=== PATIENT | male | born 1985 | race Caucasian/White ===

== ENCOUNTER 2019-07-23 23:48 | Observation (INO) ==
[2019-07-24] MEDS ORDERED: HYDROmorphone INJ 1 MG/ML SYRINGE IV STA (00:13)
[2019-07-24] MEDS ORDERED: ONDANSETRON INJ 2 MG/ML 2 ML VIAL IV STA (00:13)
[2019-07-24] MEDS ORDERED: SODIUM CHLORIDE 0.9% 1000ML 1,000 ML IV ONE ×2 (00:13→00:19)
[2019-07-24 01:16] LABS: INR 1.1 (0.9-1.1); Partial Thromboplastin Ratio 0.9; Partial Thromboplastin Time 25.1 Seconds (21.0-31.0); Prothrombin Time 10.9 Seconds (9.0-12.0)
[2019-07-24 01:17] LABS: iSTAT Creatinine 1.3 mg/dl (0.6-1.3); iSTAT Hemoglobin 17.7 g/dl (14.0-18.0); iSTAT Ionized Calcium 1.22 mmol/l (1.12-1.32); iSTAT Potassium 3.7 mEq/L (3.3-5.0)
[2019-07-24 01:37] LABS: Albumin Globulin Ratio 0.9 (0.9-2); Albumin Level 3.6 gm/dl (3.4-5.0); BUN Creatinine Ratio 15.4 (10-20); Bilirubin,Total 0.4 mg/dl (0.2-1); C Reactive Protein 4.24 mg/dl (0-0.29); Calcium 9.5 mg/dl (8.5-10.1); Creatinine Clr Calc Pharmacy 106.2 ml/min; Est GFR (African American) 74.6; Est GFR (Non-African American) 64.3; Globulin 4.1 gm/dl (2.5-4.0); Magnesium 1.7 mg/dl (1.8-2.4); Potassium 3.7 mmol/L (3.5-5.1); Thyroid Stimulating Hormone 23.9 uIu/ml (0.300-4.500); Total Protein 7.7 gm/dl (6.4-8.2); Troponin I 0.02 ng/ml (0-0.045)
[2019-07-24 01:40] LABS: Hematocrit (blood only) 52.3 % (42-52); Mean Corpuscular Hemoglobin 29.5 pg (25-34); Mean Corpuscular Hgb Conc 36.3 g/dL (32-36); Mean Corpuscular Volume 81.3 fL (80-100); Mean Platelet Volume 9.5 fL (7.4-10.4); Nucleated RBC # (auto) 0.05 K/uL (0-0); Nucleated RBC % (auto) 0.8 %; Platelet Count 74 K/uL (130-400); RDW Coefficient of Variation 13.4 % (11.5-14.5); RDW Standard Deviation 39.8 fL (36.4-46.3); Red Blood Count 6.43 M/uL (4.7-6.1); White Blood Count 6.46 K/uL (4.8-10.8)
[2019-07-24 02:00] LABS: Platelet Estimate Decreased (Normal); RBC Morphology Unremarkable; T4 Free Thyroxine 1.18 ng/dl (0.8-1.6)
[2019-07-24 02:05] LABS: ALC (manual) 1.98 K/uL (1.2-3.4); ANC (manual) 4.02 K/uL (1.4-6.5); Basophils # (manual) 0.06 K/uL (0-0.2); Basophils % (manual) 0.9 %; Blast # (manual) 0.12 K/uL (0-0); Blast Cells % (manual) 1.8 %; Eosinophils # (manual) 0.12 K/uL (0-0.5); Eosinophils % (manual) 1.8 %; Lymphocytes # (manual) 1.98 K/uL (1.2-3.4); Lymphocytes % (manual) 30.6 %; Monocytes # (manual) 0.17 K/uL (0.11-0.59); Monocytes % (manual) 2.7 %; Neutrophils # (manual) 4.02 K/uL (1.4-6.5); Neutrophils % (manual) 62.2 %
[2019-07-24] MEDS ORDERED: OPTIRAY 320 125ml IV PRN (03:10)
[2019-07-24] MEDS ORDERED: HYDROmorphone INJ 0.5 MG/0.5 ML SYR IV STA (03:21)
[2019-07-24] MEDS ORDERED: fentaNYL citrate 100 MCG/2 ML VIAL IV PRN (04:06)
--- NOTE | 2019-07-24 04:24 | Emergency Department Note ---
ED Visit Note Physician Evaluation Note: I have personally evaluated and examined this patient. I agree with assessment and plan of Letitia Geiger PA-C. Patient diaphoretic and very uncomfortable appearing complaining of low back pain and vague diffuse other pains. Notes weakness in legs though able to move them. Extensive work-up completed and with continued pain, as well as abnormal acute thrombocytopenia and CRP elevations will have hospitalist evaluate further. Willis Mendoza MD
[2019-07-24 04:25] LABS: Appearance Urine Clear (Clear); Bilirubin Urine Negative (Negative); Blood Urine Negative (Negative); Color Urine Dark Yellow; Glucose Urine UA Negative (Negative); Ketones Urine Trace (Negative); Leukocyte Esterase Urine Negative (Negative); Nitrite Urine Negative (Negative); Protein Urine 1+ (Negative); RBC Urine Automated 0-4 /hpf (0-4); Specific Gravity Urine > 1.045 (1.000-1.030); Urobilinogen Urine Negative (Negative); pH Urine 5.5 (4.5-7.5)
[2019-07-24] MEDS ORDERED: LORazepam 1 MG TAB SL STA (04:32)
[2019-07-24 04:46] LABS: Calcium Oxalate Crystals Urine Present (None Prsent)
[2019-07-24 04:47] LABS: Mucus Urine Present (None Prsent)
[2019-07-24 04:51] LABS: Bacteria Urine Automated 1+ (Negative)
[2019-07-24 05:05] LABS: Lyme Ab IgG w/WB Rflx Negative (Negative); Lyme Ab IgM w/WB Rflx Negative (Negative)
--- NOTE | 2019-07-24 05:06 | Emergency Department Note ---
History of Present Illness General Chief Complaint: Pain (Generalized) Stated Complaint: PAIN, TROUBLE BREATHING Source: patient Mode of arrival: ambulatory Limitations: no limitations History of Present Illness Provider Complaint: back pain and other (dyspnea, chest pain, weakness) Onset (ago): week(s) 1 Duration: constant and progressively worsening Location: lumbar spine, right lower back and left lower back Quality: + sharp and + aching Radiation: left leg and right leg Severity: severe Current Pain Intensity: 9 Relieved By: + supine Exacerbated By: + movement, + walking, + deep breaths, + coughing/sneezing and + lifting Context: + unknown Associated symptoms: + weakness, + fatigue, + fever, + chills, + parasthesias and + myalgias Treatments prior to arrival: NSAIDS and acetaminophen This 33-year-old male patient significant past medical history of testicular cancer, neuropathy, PE, and DVT, presents emergency department today, ambulatory, accompanied by his . The patient states for the past 1 week, he has been experiencing significantly worsening back pain. The pain is now associated with chest pain and dyspnea. He states the chest pain feels "like someone sitting on my chest". The patient states the pain in his back is stabbing "like someone is stabbing a knife into my back". He states he has been off work all week due to the pain. He was initially seen by urgent care, followed by [facility] emergency department 3 days ago where he had a chest CT and laboratory evaluation performed. He states the chest pain and dyspnea have been progressively worsening over the past 3 days and earlier today he developed weakness, shaking, vomiting, sweats, chills, and worsening dyspnea with bending. The patient states laying flat hurts and the pain radiates into the back and his legs. The patient has been taking 600 mg of ibuprofen every 6-8 hours without relief of his pain. He states he is able to ambulate, but is extremely painful in his entire legs. The patient states earlier today he believes he had a fever of 102.3. He denies any history of drug use. He denies any loss of control of his bowel or bladder function. He denies weakness or numbness of the lower extremities. He denies any recent immunizations. He denies saddle anesthesia. Home Medications Home Medications Medication Instructions Recorded Confirmed Type No Known Home Medications 07/24/19 07/24/19 History Allergies Allergy/AdvReac Type Severity Reaction Status Date / Time No Known Allergies Allergy Unverified 07/24/19 00:59 Past Med/Surg History Medical History DVT (deep venous thrombosis) Neuropathy Pulmonary embolism 2011 Testicular cancer Surgical History Bone marrow transplant status 2013 Social History Feels Safe at Home: Yes Smoking Status: Never smoker Review of Systems A total of 10 systems reviewed and were otherwise negative Physical Exam Vital Signs Vital Signs - 24 hr 07/23/19 23:50 07/24/19 00:29 07/24/19 01:30 Temperature 36.7 C Temperature Source Oral Sepsis Recent Fever Within 48 Hours No Sepsis Action Taken by Nursing No Action Required Pulse Rate 103 H 86 Pulse Rate [Apical] 90 Pulse Rate from SpO2 Sensor 83 Respiratory Rate 18 16 23 Respiratory Effort / Characteristics Non-Labored Respiratory Depth Normal Blood Pressure 118/84 136/90 Blood Pressure [Right Arm] 116/80 Blood Pressure Mean 95 105 Blood Pressure Mean [Right Arm] 92 Pulse Oximetry 95 95 95 Oxygen Delivery Method Room Air Room Air Room Air 07/24/19 01:59 07/24/19 02:30 07/24/19 03:30 Temperature Temperature Source Sepsis Recent Fever Within 48 Hours Sepsis Action Taken by Nursing Pulse Rate 85 85 Pulse Rate [Apical] 99 H Pulse Rate from SpO2 Sensor 85 86 Respiratory Rate 18 16 20 Respiratory Effort / Characteristics Respiratory Depth Normal Blood Pressure 128/89 103/74 Blood Pressure [Right Arm] 99/44 L Blood Pressure Mean 102 83 Blood Pressure Mean [Right Arm] 62 Pulse Oximetry 95 94 100 Oxygen Delivery Method Room Air Room Air Room Air 07/24/19 04:28 Temperature Temperature Source Sepsis Recent Fever Within 48 Hours Sepsis Action Taken by Nursing Pulse Rate Pulse Rate [Apical] Pulse Rate from SpO2 Sensor Respiratory Rate 16 Respiratory Effort / Characteristics Respiratory Depth Normal Blood Pressure Blood Pressure [Right Arm] 111/69 Blood Pressure Mean Blood Pressure Mean [Right Arm] 83 Pulse Oximetry 98 Oxygen Delivery Method Room Air VITALS: Vitals are noted on the nurse's note and reviewed by myself. Vital signs stable. GENERAL: This is a 33-year-old obese white male, uncomfortable in appearance, di aphoretic, well-developed well-nourished. SKIN: The skin was without rashes, erythema, edema, or bruising. There is no tenting of the skin. Capillary refill less than 2 seconds. HEAD: Normocephalic atraumatic. EARS: External auditory canals clear, tympanic membranes pearly dunn without erythema or effusion bilaterally. EYES: Pupils equal round and reactive to light and accommodation. Conjunctivae without injection, sclerae without icterus. NOSE: Patent, turbinates without inflammation or discharge. No sinus tenderness. MOUTH: Mucous membranes moist. Tonsils are not enlarged. Pharynx without erythema or exudate. Uvula midline. Airway patent. Tongue does not deviate. NECK: Supple without nuchal rigidity. No lymphadenopathy. No thyromegaly. Cervical spine is nontender. No JVD. HEART: Regular rate and rhythm without murmurs gallops or rubs. LUNGS: Clear to auscultation bilaterally without wheezes, rales or rhonchi. No dullness to percussion. No retractions or accessory muscle use. ABDOMEN: Positive bowel sounds x 4. Normal tympanic percussion. Soft, nontender, without masses or organomegaly. Sheldon sign negative. No guarding or rebound tenderness. MUSCULOSKELETAL: No muscle atrophy, erythema, or edema noted. Full range of motion without joint tenderness in all extremities. Lumbar spine and paraspinous muscle tenderness to palpation. Positive straight leg raise test bilaterally. Shuffling gait. Strength 5/5 throughout. NEURO: Patient was alert and oriented to person place and time. Normal sensation to light and sharp touch. Deep tendon reflexes 2+ throughout. No focal neurological deficits. Course The patient was seen and evaluated as above. IV access obtained, labs drawn. Patient medicated with 2 L of IV fluids, Zofran, Dilaudid. I discussed the case with my attending physician. CT imaging performed and reviewed by myself and radiologist as above. Patient requesting more pain medication. He was given 0.5 mg IV Dilaudid. This did not help. Labs reviewed by myself. I discussed the findings with the patient at bedside. I did recommend admission for the intractable back pain, thrombocytopenia. Did recommend MRI imaging as well. The patient was agreeable. I discussed the case with the [facility] hospitalist, Dr. Ivory. He did agree to see and evaluate the patient. MRI performed. Please see hospitalist dictation regarding ongoing management and care of this patient. Administered Medications Ioversol (Optiray 320 125ml) 125 ml IV ONCE PRN PRN Reason: Interaction Checking Stop: 07/28/19 03:09 Last Admin: 07/24/19 03:10 Dose: 115 ml Documented by: [id number] Discontinued Medications Hydromorphone HCl (Dilaudid) 1 mg IV NOW STA Stop: 07/24/19 00:14 Last Admin: 07/24/19 01:07 Dose: 1 mg Documented by: [id number] Hydromorphone HCl (Dilaudid) 0.5 mg IV NOW STA Stop: 07/24/19 03:22 Last Admin: 07/24/19 03:25 Dose: 0.5 mg Documented by: [id number] Sodium Chloride (Nss 1000ml) 1,000 mls @ 999 mls/hr IV .Q1H1M ONE Stop: 07/24/19 01:13 Last Infusion: 07/24/19 03:25 Dose: 0 mls/hr Documented by: [id number] Admin: 07/24/19 01:04 Dose: 999 mls/hr Documented by: [id number] Sodium Chloride (Nss 1000ml) 1,000 mls @ 999 mls/hr IV .Q1H1M ONE Stop: 07/24/19 01:19 Last Infusion: 07/24/19 04:15 Dose: 0 mls/hr Documented by: [id number] Admin: 07/24/19 03:25 Dose: 999 mls/hr Documented by: [id number] Lorazepam (Ativan) 1 mg SL NOW STA Stop: 07/24/19 04:33 Last Admin: 07/24/19 04:39 Dose: 1 mg Documented by: [id number] Ondansetron HCl (Zofran) 4 mg IV NOW STA Stop: 07/24/19 00:14 Last Admin: 07/24/19 01:07 Dose: 4 mg Documented by: [id number] Medical Decision Making Differential Diagnosis lumbar radiculopathy, sciatica, strain of lumbar region, renal colic, pyeloneph ritis, thoracic back pain, AAA, discitis, muscular strain, fracture, aortic disease, metastatic disease, infection, renal colic, gastrointestinal, lumbago, cauda equina and cord compression In addition to the above, etiologies such as cardiac ischemia, aortic dissection, pulmonary embolism, pneumonia, pneumothorax, musculoskeletal, infections, gastrointestinal, as well as others were entertained. Medical Records Attestation: I reviewed the patient's medical records. Recent medical records from [facility] including urgent care visit, ED visit, and previous primary care visit obtained through case management. These were reviewed. Laboratory Data Attestation: I reviewed the patient's lab results. No leukocytosis. Hemoglobin elevated at 19, hematocrit 52. Thrombocytopenia with platelet count of 74,000. This has decreased from 113,000 3 days ago. Coags normal. Procalcitonin 0.21. Creatinine elevated 1.43. Lactate 1.9. Troponin negative. CRP and ESR elevated. TSH elevated at 23.9 with a free T4 of 1.18. Lyme disease testing negative. Influenza testing negative. Urinalysis without evidence of acute infection. Result diagrams: 07/24/19 00:13 07/24/19 00:13 Lab Results 07/24/19 07/24/19 07/24/19 Range/Units 00:13 00:13 00:13 WBC 6.46 (4.8-10.8) K/uL RBC 6.43 H (4.7-6.1) M/uL Hgb 19.0 H (14.0-18.0) g/dL POC Hgb (14.0-18.0) g/dl Hct 52.3 H (42-52) % POC Hct (42-52) % MCV 81.3 (80-100) fL MCH 29.5 (25-34) pg MCHC 36.3 H (32-36) g/dL RDW Std Deviation 39.8 (36.4-46.3) fL RDW Coeff of Tatyana 13.4 (11.5-14.5) % Plt Count 74 L (130-400) K/uL MPV 9.5 (7.4-10.4) fL Absolute Nucleated RBC 0.05 H (0-0) K/uL Nucleated RBC % (auto) 0.8 % Neutrophils % (Manual) 62.2 % Lymphocytes % (Manual) 30.6 % Monocytes % (Manual) 2.7 % Eosinophils % (Manual) 1.8 % Basophils % (Manual) 0.9 % Blast Cells % (Manual) 1.8 % Neutrophils # (Manual) 4.02 (1.4-6.5) K/uL Total Absolute Neuts 4.02 (1.4-6.5) K/uL Lymphocytes # (Manual) 1.98 (1.2-3.4) K/uL Total Abs Lymphocytes 1.98 (1.2-3.4) K/uL Monocytes # (Manual) 0.17 (0.11-0.59) K/uL Eosinophils # (Manual) 0.12 (0-0.5) K/uL Basophils # (Manual) 0.06 (0-0.2) K/uL Blast Cells # (Man) 0.12 H (0-0) K/uL Platelet Estimate Decreased L (Normal) RBC Morphology Unremarkable PT 10.9 (9.0-12.0) Seconds INR 1.1 (0.9-1.1) APTT 25.1 (21.0-31.0) Seconds PTT Ratio 0.9 POC Sodium (135-144) mEq/L Sodium (136-145) mmol/L POC Potassium (3.3-5.0) mEq/L Potassium (3.5-5.1) mmol/L POC Chloride (101-112) mEq/L Chloride (98-107) mmol/L Carbon Dioxide (21-32) mmol/L POC Total CO2 (24-31) mEq/l Anion Gap (3-11) POC Anion Gap (16-25) mmol/L POC BUN (7-18) mg/dl BUN (7-18) mg/dl Creatinine (0.6-1.4) mg/dl POC Creatinine (0.6-1.3) mg/dl Est Cr Clr Drug Dosing ml/min Est GFR ( Amer) Est GFR (Non-Af Amer) BUN/Creatinine Ratio (10-20) Glucose (70-99) mg/dl POC Glucose (other) (70-99) mg/dl Lactate (0.4-2.0) mmol/L Calcium (8.5-10.1) mg/dl POC Ioniz Calcium Felix (1.12-1.32) mmol/l Magnesium (1.8-2.4) mg/dl Total Bilirubin (0.2-1) mg/dl AST (15-37) U/L ALT (12-78) U/L Alkaline Phosphatase (45-117) U/L Troponin I (0-0.045) ng/ml C-Reactive Protein (0-0.29) mg/dl Total Protein (6.4-8.2) gm/dl Albumin (3.4-5.0) gm/dl Globulin (2.5-4.0) gm/dl Albumin/Globulin Ratio (0.9-2) Lipase (73-393) U/L Procalcitonin 0.21 (0-0.5) ng/ml TSH (0.300-4.500) uIu/ml Free T4 (0.8-1.6) ng/dl Specimen Hemolysis Urine Color Urine Appearance (Clear) Urine pH (4.5-7.5) Ur Specific [place] (1.000-1.030) Urine Protein (Negative) Urine Glucose (UA) (Negative) Urine Ketones (Negative) Urine Blood (Negative) Urine Nitrite (Negative) Urine Bilirubin (Negative) Urine Urobilinogen (Negative) Ur Leukocyte Esterase (Negative) Urine WBC (Auto) (0-5) /hpf Urine RBC (Auto) (0-4) /hpf U Hyaline Cast (Auto) (0-5) /lpf U Epithel Cells (Auto) (0-5) /lpf Urine Bacteria (Auto) (Negative) Calcium Oxalate Crystal (None Prsent) Granular Casts (0) /lpf Urine Mucus (None Prsent) Lyme Disease IgG Ab (Negative) Lyme Disease IgM Ab (Negative) Influenza Type A Ag (Neg) Influenza Type B Ag (Neg) 07/24/19 07/24/19 07/24/19 Range/Units 00:13 00:13 00:13 WBC (4.8-10.8) K/uL RBC (4.7-6.1) M/uL Hgb (14.0-18.0) g/dL POC Hgb (14.0-18.0) g/dl Hct (42-52) % POC Hct (42-52) % MCV (80-100) fL MCH (25-34) pg MCHC (32-36) g/dL RDW Std Deviation (36.4-46.3) fL RDW Coeff of Tatyana (11.5-14.5) % Plt Count (130-400) K/uL MPV (7.4-10.4) fL Absolute Nucleated RBC (0-0) K/uL Nucleated RBC % (auto) % Neutrophils % (Manual) % Lymphocytes % (Manual) % Monocytes % (Manual) % Eosinophils % (Manual) % Basophils % (Manual) % Blast Cells % (Manual) % Neutrophils # (Manual) (1.4-6.5) K/uL Total Absolute Neuts (1.4-6.5) K/uL Lymphocytes # (Manual) (1.2-3.4) K/uL Total Abs Lymphocytes (1.2-3.4) K/uL Monocytes # (Manual) (0.11-0.59) K/uL Eosinophils # (Manual) (0-0.5) K/uL Basophils # (Manual) (0-0.2) K/uL Blast Cells # (Man) (0-0) K/uL Platelet Estimate (Normal) RBC Morphology PT (9.0-12.0) Seconds INR (0.9-1.1) APTT (21.0-31.0) Seconds PTT Ratio POC Sodium (135-144) mEq/L Sodium 135 L (136-145) mmol/L POC Potassium (3.3-5.0) mEq/L Potassium 3.7 (3.5-5.1) mmol/L POC Chloride (101-112) mEq/L Chloride 103 (98-107) mmol/L Carbon Dioxide 21 (21-32) mmol/L POC Total CO2 (24-31) mEq/l Anion Gap 11.0 (3-11) POC Anion Gap (16-25) mmol/L POC BUN (7-18) mg/dl BUN 22 H (7-18) mg/dl Creatinine 1.43 H (0.6-1.4) mg/dl POC Creatinine (0.6-1.3) mg/dl Est Cr Clr Drug Dosing 106.2 ml/min Est GFR ( Amer) 74.6 Est GFR (Non-Af Amer) 64.3 BUN/Creatinine Ratio 15.4 (10-20) Glucose 132 H (70-99) mg/dl POC Glucose (other) (70-99) mg/dl Lactate 1.9 (0.4-2.0) mmol/L Calcium 9.5 (8.5-10.1) mg/dl POC Ioniz Calcium Felix (1.12-1.32) mmol/l Magnesium 1.7 L (1.8-2.4) mg/dl Total Bilirubin 0.4 (0.2-1) mg/dl AST 43 H (15-37) U/L ALT 42 (12-78) U/L Alkaline Phosphatase 99 (45-117) U/L Troponin I 0.020 (0-0.045) ng/ml C-Reactive Protein 4.24 H (0-0.29) mg/dl Total Protein 7.7 (6.4-8.2) gm/dl Albumin 3.6 (3.4-5.0) gm/dl Globulin 4.1 H (2.5-4.0) gm/dl Albumin/Globulin Ratio 0.9 (0.9-2) Lipase 218 (73-393) U/L Procalcitonin (0-0.5) ng/ml TSH 23.900 H (0.300-4.500) uIu/ml Free T4 1.18 (0.8-1.6) ng/dl Specimen Hemolysis Urine Color Urine Appearance (Clear) Urine pH (4.5-7.5) Ur Specific [place] (1.000-1.030) Urine Protein (Negative) Urine Glucose (UA) (Negative) Urine Ketones (Negative) Urine Blood (Negative) Urine Nitrite (Negative) Urine Bilirubin (Negative) Urine Urobilinogen (Negative) Ur Leukocyte Esterase (Negative) Urine WBC (Auto) (0-5) /hpf Urine RBC (Auto) (0-4) /hpf U Hyaline Cast (Auto) (0-5) /lpf U Epithel Cells (Auto) (0-5) /lpf Urine Bacteria (Auto) (Negative) Calcium Oxalate Crystal (None Prsent) Granular Casts (0) /lpf Urine Mucus (None Prsent) Lyme Disease IgG Ab Negative (Negative) Lyme Disease IgM Ab Negative (Negative) Influenza Type A Ag (Neg) Influenza Type B Ag (Neg) 07/24/19 07/24/19 07/24/19 Range/Units 00:31 01:04 04:10 WBC (4.8-10.8) K/uL RBC (4.7-6.1) M/uL Hgb (14.0-18.0) g/dL POC Hgb 17.7 (14.0-18.0) g/dl Hct (42-52) % POC Hct 52 (42-52) % MCV (80-100) fL MCH (25-34) pg MCHC (32-36) g/dL RDW Std Deviation (36.4-46.3) fL RDW Coeff of Tatyana (11.5-14.5) % Plt Count (130-400) K/uL MPV (7.4-10.4) fL Absolute Nucleated RBC (0-0) K/uL Nucleated RBC % (auto) % Neutrophils % (Manual) % Lymphocytes % (Manual) % Monocytes % (Manual) % Eosinophils % (Manual) % Basophils % (Manual) % Blast Cells % (Manual) % Neutrophils # (Manual) (1.4-6.5) K/uL Total Absolute Neuts (1.4-6.5) K/uL Lymphocytes # (Manual) (1.2-3.4) K/uL Total Abs Lymphocytes (1.2-3.4) K/uL Monocytes # (Manual) (0.11-0.59) K/uL Eosinophils # (Manual) (0-0.5) K/uL Basophils # (Manual) (0-0.2) K/uL Blast Cells # (Man) (0-0) K/uL Platelet Estimate (Normal) RBC Morphology PT (9.0-12.0) Seconds INR (0.9-1.1) APTT (21.0-31.0) Seconds PTT Ratio POC Sodium 136 (135-144) mEq/L Sodium (136-145) mmol/L POC Potassium 3.7 (3.3-5.0) mEq/L Potassium (3.5-5.1) mmol/L POC Chloride 102 (101-112) mEq/L Chloride (98-107) mmol/L Carbon Dioxide (21-32) mmol/L POC Total CO2 23 L (24-31) mEq/l Anion Gap (3-11) POC Anion Gap 15.0 L (16-25) mmol/L POC BUN 22 H (7-18) mg/dl BUN (7-18) mg/dl Creatinine (0.6-1.4) mg/dl POC Creatinine 1.3 (0.6-1.3) mg/dl Est Cr Clr Drug Dosing ml/min Est GFR ( Amer) Est GFR (Non-Af Amer) BUN/Creatinine Ratio (10-20) Glucose (70-99) mg/dl POC Glucose (other) 130 H (70-99) mg/dl Lactate (0.4-2.0) mmol/L Calcium (8.5-10.1) mg/dl POC Ioniz Calcium Felix 1.22 (1.12-1.32) mmol/l Magnesium (1.8-2.4) mg/dl Total Bilirubin (0.2-1) mg/dl AST (15-37) U/L ALT (12-78) U/L Alkaline Phosphatase (45-117) U/L Troponin I (0-0.045) ng/ml C-Reactive Protein (0-0.29) mg/dl Total Protein (6.4-8.2) gm/dl Albumin (3.4-5.0) gm/dl Globulin (2.5-4.0) gm/dl Albumin/Globulin Ratio (0.9-2) Lipase (73-393) U/L Procalcitonin (0-0.5) ng/ml TSH (0.300-4.500) uIu/ml Free T4 (0.8-1.6) ng/dl Specimen Hemolysis Urine Color Dark Yellow Urine Appearance Clear (Clear) Urine pH 5.5 (4.5-7.5) Ur Specific [place] > 1.045 H (1.000-1.030) Urine Protein 1+ H (Negative) Urine Glucose (UA) Negative (Negative) Urine Ketones Trace H (Negative) Urine Blood Negative (Negative) Urine Nitrite Negative (Negative) Urine Bilirubin Negative (Negative) Urine Urobilinogen Negative (Negative) Ur Leukocyte Esterase Negative (Negative) Urine WBC (Auto) 1-5 (0-5) /hpf Urine RBC (Auto) 0-4 (0-4) /hpf U Hyaline Cast (Auto) 10-30 H (0-5) /lpf U Epithel Cells (Auto) 10-20 H (0-5) /lpf Urine Bacteria (Auto) 1+ H (Negative) Calcium Oxalate Crystal Present A (None Prsent) Granular Casts 5-10 H (0) /lpf Urine Mucus Present A (None Prsent) Lyme Disease IgG Ab (Negative) Lyme Disease IgM Ab (Negative) Influenza Type A Ag Neg for Influ A (Neg) Influenza Type B Ag Neg for Influ B (Neg) Imaging Data Radiologist's Impression: XR chest 1V portable CLINICAL HISTORY: chest pain dyspnea COMPARISON STUDY: No previous studies for comparison. FINDINGS: The bones soft tissues and hemidiaphragms are normal. The cardiomediastinal silhouette is normal. The lungs are clear. The pulmonary vasculature is normal. IMPRESSION: Negative chest. The above report was generated using voice recognition software. It may contain grammatical, syntax or spelling errors. Electronically signed by: Edward Medeiros M.D. 07/24/2019 6:15 AM CTA CHEST: Suboptimal enhancement of the pulmonary artery system with mixing of unopacified blood from the IVC. However, no evidence for pulmonary embolism. The thoracic aorta is normal in caliber without dissection or aneurysm. No periaortic abnormality or interval wall abnormality identified on precontrast imaging. The cardiac chambers are unremarkable without pericardial effusion. CT CHEST Without Contrast: The lungs are clear. No focal consolidation. No pleural effusion or pneumothorax. No significant mediastinal adenopathy. No acute osseous or significant overlying soft tissue abnormality. Radiologist: Alen Mobley MD CTA ABDOMEN & PELVIS W/WO Contrast: The abdominal aorta, common iliac, internal and external iliac arteries are widely patent without narrowing, occlusion or dissection. The liver, gallbladder, pancreas, spleen, adrenal glands and kidneys demonstrate no significant acute abnormality with probable incidental cortical cyst involving the superior medial aspect of the right kidney. Postoperative changes in the retroperitoneum and pelvis are consistent with radical lymph node dissection. Please correlate with clinical history. No retroperitoneal lymphadenopathy or soft tissue mass identified. No bowel obstruction or significant focal bowel mucosal abnormality. No free intraperitoneal fluid or pneumoperitoneum. Bladder is unremarkable. No acute osseous or significant overlying soft tissue abnormality. Radiologist: Alen Mobley MD ECG Data Attestation: I personally reviewed and interpreted this ECG as follows: Indication: chest pain Rate (beats per minute): 91 Rhythm: normal sinus Findings: no ST elevation, no acute ischemic change and no ectopy Comparison ECG Date: no prior available Blood Pressure Blood Pressure Findings: Low blood pressure Blood Pressure Disposition: further management by hospitalist TRUDY Gallegos This 33-year-old male patient presents emergency department today for intractable back pain associated with fevers, chills, chest pain, and dyspnea. He does have a history of testicular cancer and bone marrow transplant. The patient does also have a history of PE and DVT. He is very uncomfortable and diaphoretic on initial examination. His pain did respond to the first dose of Dilaudid, but did not respond to any subsequent doses of narcotics while here in the department. Laboratory evaluation shows thrombocytopenia of 74,000. This has decreased over the past 3 days. Inflammatory markers elevated. CT imaging did not show any acute abnormalities. Due to concern regarding abscess or infection, we did elect to perform MRI of the lumbar spine. This was pending at time of admission. The patient will be admitted for intractable back pain and thrombocytopenia and for further workup and evaluation regarding the back pain with chest pain and dyspnea. Please see hospitalist dictation regarding ongoing management and care of this patient. The chart was completed utilizing [employer] voice recognition software. Grammatical errors, random word insertions, pronoun errors, and incomplete sentences are an occasional consequence of this system due to software limitations, ambient noise, and hardware issues. Any formal questions or concerns about the content, text, or information contained within the body of this dictation should be directly addressed to the provider for clarification. Impression & Plan Low back pain, Dyspnea, Chest pain, Fever, Diaphoresis Discharge Plan Visit Data Chief Complaint: Pain (Generalized) Stated Complaint: PAIN, TROUBLE BREATHING ED Provider: Willis Mendoza ED Midlevel Provider: Letitia Geiger Discharge Problem: Low back pain, Dyspnea, Chest pain, Fever, Diaphoresis Patient Disposition: Admitted As Inpatient Forms Stand Alone Forms: [facility], Important Visit Information Prescriptions Prescriptions: No Action No Known Home Medications RF: 0 Referrals Referrals: Ginger Francois PA-C [Primary Care Provider] -
--- NOTE | 2019-07-24 06:03 | CT Scan Report ---
CT angio chest dissec wo/w con CT DOSE: HISTORY: Chest pain PE TECHNIQUE: Multiaxial CT images of the chest, abdomen, and pelvis were performed both before and afte r the intravenous administration of contrast to evaluate the aorta. Maximal intensity projection imag es were also obtained. A dose lowering technique was utilized adhering to the principles of ALARA. COMPARISON STUDY: None. FINDINGS: Normal thoracic aorta. No evidence for aneurysm or dissection. Pulmonary vasculature enhances appropriately. No filling defects. Lungs are considered clear. IMPRESSION: 1. No acute process.. 2. Negative thoracic aorta. 3. No evidence for pulmonary embolism. The above report was generated using voice recognition software. It may contain grammatical, syntax or spelling errors. Electronically signed by: Edward Medeiros M.D. 07/24/2019 6:01 AM
[2019-07-24] MEDS ORDERED: GADOBUTROL 65ML VIAL IV PRN (06:14)
--- NOTE | 2019-07-24 06:16 | XRay Report ---
XR chest 1V portable CLINICAL HISTORY: chest pain dyspnea COMPARISON STUDY: No previous studies for comparison. FINDINGS: The bones soft tissues and hemidiaphragms are normal. The cardiomediastinal silhouette is n ormal. The lungs are clear. The pulmonary vasculature is normal. IMPRESSION: Negative chest. The above report was generated using voice recognition software. It may contain grammatical, syntax or spelling errors. Electronically signed by: Edward Medeiros M.D. 07/24/2019 6:15 AM
--- NOTE | 2019-07-24 06:20 | CT Scan Report ---
Study: CT angiography abdomen and pelvis HISTORY: Pain. Neuropathy. FINDINGS: Evaluation of the abdominal and pelvic arterial vasculature shows normal vascular flow thro ughout. No evidence for aneurysm or dissection. Liver spleen and pancreas are unremarkable. Kidneys negative for hydronephrosis. Multiple surgical clips are identified within the periaortic and retroperitoneal regions. Bladder is midline. There is no free fluid within the pelvic cul-de-sac. Nonobstructive bowel pattern. IMPRESSION: 1. Normal CT angiogram of the abdomen and pelvis. 2. No acute process in the abdomen or pelvis. 3. Postoperative surgical clips within the periaortic and retroperitoneal regions. Electronically signed by: Edward Medeiros M.D. 07/24/2019 6:19 AM
[2019-07-24] MEDS: OXYCODONE HCL IR 5 MG TAB (IMMEDIATE RELEASE) PO PRN ×2 (06:23→09:39)
[2019-07-24] MEDS ORDERED: LIDOCAINE 5% 1 PATCH TD SCH (06:30)
[2019-07-24] MEDS ORDERED: LACTATED RINGER'S 1,000 ML IV ONE (06:39)
--- NOTE | 2019-07-24 06:45 | Magnetic Resonance Report ---
MR lumbar spine wo/w con HISTORY: Pain low back pain, fever TECHNIQUE: Multiplanar multisequence MRI of the lumbar spine was performed both before and after the intravenous administration of contrast. COMPARISON: None. FINDINGS: For the purpose of the report the L5-S1 disc space will be located on axial image 28 of 31. Signal characteristics of the vertebral bodies are unremarkable. Moderate degenerative disc change L5 -S1. Mild disc desiccation throughout the remainder of the lumbar region. The study is partially compromised due to body habitus considerations. No evidence for abnormal postcontrast enhancement. No evidence for abscess or collection. L1-L2: Minimal broad-based disc bulge. Minimal impact anterior thecal sac. L2-L3: Broad-based bulging disc with minimal impact anterior thecal sac. Minimal narrowing neural for lynnette bilaterally. L3-L4: Moderate multifactorial narrowing of the spinal canal. Broad-based bulging disc. Mild narrowin g of the neural foramina bilaterally. L4-L5: Broad-based bulging disc. Mild impact anterior aspect of thecal sac. Mild multifactorial narro wing of the spinal canal. L5-S1: Right central disc herniation. Minimal impact anterior thecal sac. Moderate narrowing right ne ural foramina. IMPRESSION: 1. No evidence for abscess or collection. 2. No abnormal postcontrast enhancement. 3. Right central disc herniation L5-S1. Significant narrowing right neural foramina and moderate impa ct upon the anterior thecal sac. 4. Multilevel additional bulging discs with minimal to mild multifactorial narrowing of the spinal ca nal throughout. The above report was generated using voice recognition software. It may contain grammatical, syntax or spelling errors. Electronically signed by: Edward Medeiros M.D. 07/24/2019 6:44 AM
--- NOTE | 2019-07-24 06:52 | History & Physical Report ---
Date of Service July 24, 2019 Assessment & Plan (1) Chest pain: Possibily musculoskeletal given reproducibility Rule out pericarditis Intractable back pain History L5, S1 DDD with stenosis as per records Hypothyroidism TSH markedly elevated secondary to medication noncompliance due to inconvenience of taking tablet in a.m. Abnormal CBC New onset thrombocytopenia blast cells in differential polycythemia (noted from 11/2018 lab work) hx testicular cancer (embryonal carcinoma) status post surgery/chemotherapy status post stem cell transplant tx AR[facility] secondary to illness, clinical dehydration given ketonuria asthma as per records, stable history PE/DVT status post Coumadin chronic migraine, symptoms at baseline Prediabetes, outpatient hemoglobin A1c noted to be 5.09 April 2019 past tobacco abuse OBS Medical telemetry given chest pain complaints Follow troponin, baseline TTE Lidoderm patch trial Orthopedics consult RE intractable back pain (Patient known to [facility].) Hematology consult RE abnormal CBC Monitor creatinine response to IV fluids Resume levothyroxine, recheck TSH after 1 month. DVT prophylaxis. SCDs RE thrombocytopenia Full code History of Present Illness Chief Complaint: Worsening back pain, leg weakness Primary Care Provider: Ginger Francois PA-C History obtained from patient, family, and records. 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 1 week history of pleuritic chest pain with shortness of breath. No cough symptoms. 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 Patient directed by urgent care center to [facility] ER. Patient noted to be polycythemic at 18.8, thrombocytopenic at 113, smudge cells noted on peripheral smear. PE study unremarkable. Patient discharged from the ER. Persistent chest pain. Yesterday patient noted achy low back pain going down both legs worse with movement and bending over. Both legs weak and a little numb, left greater than the right. Low-grade fever at home as per . No bowel/bladder incontinence symptoms. Usual migraine headaches. No recollection of unusual exertion or lifting as per patient. Intractable discomfort at the ER. 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 Allergies Allergy/AdvReac Type Severity Reaction Status Date / Time No Known Allergies Allergy Unverified 07/24/19 00:59 Home Medications Home Medications Medication Instructions Recorded Confirmed Type No Known Home Medications 07/24/19 07/24/19 History Past Med/Surg History Medical History DVT (deep venous thrombosis) Neuropathy Pulmonary embolism 2011 Testicular cancer Surgical History Bone marrow transplant status 2013 Social History Preferred Language: Qatari Communication Ability: Effective Network Mgr Required: No Beliefs That Will Affect Care: None Current Living Situation: Spouse and Family Other Information That Helps Us Care for You: No Feels Safe at Home: Yes Safety Concerns: Feels Safe At This Time Smoking Status: Never smoker Tobacco Type: smokeless tobacco ; Do You Dip or Chew Tobacco: Yes (1 can in 2 days) ; Second Hand Exposure: No ; Tobacco Cessation Education Requested by Patient: No Hx Alcohol Use: No Hx Substance Use: No Review of Systems Review of Systems: As per HPI, all 10 systems reviewed, all other ROS negative Physical Exam Physical Exam: GENERAL: uncomfortable, obese, looks older than stated age, no respiratory distress, seated on the left side of the stretcher SKIN: Normal color, flushed, warm HEENT: Hutchins palpebral conjunctivae, no ptosis, dry buccal mucosa NECK : Supple, short neck, no tenderness CHEST : CTA, anterior chest wall tenderness HEART : tachycardic, no obvious murmurs ABDOMEN: Some distention, nontender BACK : Low back tenderness EXTREMITIES : No LE swelling/tenderness, no other conspicuous deformities noted NEUROLOGIC : Coherent, no facial asymmetry, MMTS BUE 4/5; BLE 3/5. Gait and stance not assessed Results & Data Vital Signs (Past 12 Hours) Vital Signs Temp Pulse Pulse Resp BP BP Pulse Ox 07/24/19 06:16 112 H 18 129/109 H 94 07/24/19 04:28 16 111/69 98 07/24/19 03:30 99 H 20 99/44 L 100 07/24/19 02:30 85 16 103/74 94 07/24/19 01:59 85 18 128/89 95 07/24/19 01:30 86 23 136/90 95 07/24/19 00:29 90 16 116/80 95 07/23/19 23:50 36.7 C 103 H 18 118/84 95 Laboratory Results Laboratory Results WBC 6.46 K/uL (4.8-10.8) 07/24/19 00:13 RBC 6.43 M/uL (4.7-6.1) H 07/24/19 00:13 Hgb 19.0 g/dL (14.0-18.0) H 07/24/19 00:13 POC Hgb 17.7 g/dl (14.0-18.0) 07/24/19 01:04 Hct 52.3 % (42-52) H 07/24/19 00:13 POC Hct 52 % (42-52) 07/24/19 01:04 MCV 81.3 fL (80-100) 07/24/19 00:13 MCH 29.5 pg (25-34) 07/24/19 00:13 MCHC 36.3 g/dL (32-36) H 07/24/19 00:13 RDW Std Deviation 39.8 fL (36.4-46.3) 07/24/19 00:13 RDW Coeff of Tatyana 13.4 % (11.5-14.5) 07/24/19 00:13 Plt Count 74 K/uL (130-400) L 07/24/19 00:13 MPV 9.5 fL (7.4-10.4) 07/24/19 00:13 Absolute Nucleated RBC 0.05 K/uL (0-0) H 07/24/19 00:13 Nucleated RBC % (auto) 0.8 % 07/24/19 00:13 Neutrophils % (Manual) 62.2 % 07/24/19 00:13 Lymphocytes % (Manual) 30.6 % 07/24/19 00:13 Monocytes % (Manual) 2.7 % 07/24/19 00:13 Eosinophils % (Manual) 1.8 % 07/24/19 00:13 Basophils % (Manual) 0.9 % 07/24/19 00:13 Blast Cells % (Manual) 1.8 % 07/24/19 00:13 Neutrophils # (Manual) 4.02 K/uL (1.4-6.5) 07/24/19 00:13 Total Absolute Neuts 4.02 K/uL (1.4-6.5) 07/24/19 00:13 Lymphocytes # (Manual) 1.98 K/uL (1.2-3.4) 07/24/19 00:13 Total Abs Lymphocytes 1.98 K/uL (1.2-3.4) 07/24/19 00:13 Monocytes # (Manual) 0.17 K/uL (0.11-0.59) 07/24/19 00:13 Eosinophils # (Manual) 0.12 K/uL (0-0.5) 07/24/19 00:13 Basophils # (Manual) 0.06 K/uL (0-0.2) 07/24/19 00:13 Blast Cells # (Man) 0.12 K/uL (0-0) H 07/24/19 00:13 Platelet Estimate Decreased (Normal) L 07/24/19 00:13 RBC Morphology Unremarkable 07/24/19 00:13 PT 10.9 Seconds (9.0-12.0) 07/24/19 00:13 INR 1.1 (0.9-1.1) 07/24/19 00:13 APTT 25.1 Seconds (21.0-31.0) 07/24/19 00:13 PTT Ratio 0.9 07/24/19 00:13 POC Sodium 136 mEq/L (135-144) 07/24/19 01:04 Sodium 135 mmol/L (136-145) L 07/24/19 00:13 POC Potassium 3.7 mEq/L (3.3-5.0) 07/24/19 01:04 Potassium 3.7 mmol/L (3.5-5.1) 07/24/19 00:13 POC Chloride 102 mEq/L (101-112) 07/24/19 01:04 Chloride 103 mmol/L (98-107) 07/24/19 00:13 Carbon Dioxide 21 mmol/L (21-32) 10/23/19 00:13 POC Total CO2 23 mEq/l (24-31) L 07/24/19 01:04 Anion Gap 11.0 (3-11) 07/24/19 00:13 POC Anion Gap 15.0 mmol/L (16-25) L 07/24/19 01:04 POC BUN 22 mg/dl (7-18) H 07/24/19 01:04 BUN 22 mg/dl (7-18) H 07/24/19 00:13 Creatinine 1.43 mg/dl (0.6-1.4) H 07/24/19 00:13 POC Creatinine 1.3 mg/dl (0.6-1.3) 07/24/19 01:04 Est Cr Clr Drug Dosing 106.2 ml/min 07/24/19 00:13 Est GFR ( Amer) 74.6 07/24/19 00:13 Est GFR (Non-Af Amer) 64.3 07/24/19 00:13 BUN/Creatinine Ratio 15.4 (10-20) 07/24/19 00:13 Glucose 132 mg/dl (70-99) H 07/24/19 00:13 POC Glucose (other) 130 mg/dl (70-99) H 07/24/19 01:04 Lactate 1.9 mmol/L (0.4-2.0) 07/24/19 00:13 Calcium 9.5 mg/dl (8.5-10.1) 07/24/19 00:13 POC Ioniz Calcium Felix 1.22 mmol/l (1.12-1.32) 07/24/19 01:04 Magnesium 1.7 mg/dl (1.8-2.4) L 07/24/19 00:13 Total Bilirubin 0.4 mg/dl (0.2-1) 07/24/19 00:13 AST 43 U/L (15-37) H 07/24/19 00:13 ALT 42 U/L (12-78) 07/24/19 00:13 Alkaline Phosphatase 99 U/L (45-117) 07/24/19 00:13 Troponin I 0.020 ng/ml (0-0.045) 07/24/19 00:13 C-Reactive Protein 4.24 mg/dl (0-0.29) H 07/24/19 00:13 Total Protein 7.7 gm/dl (6.4-8.2) 07/24/19 00:13 Albumin 3.6 gm/dl (3.4-5.0) 07/24/19 00:13 Globulin 4.1 gm/dl (2.5-4.0) H 07/24/19 00:13 Albumin/Globulin Ratio 0.9 (0.9-2) 07/24/19 00:13 Lipase 218 U/L (73-393) 07/24/19 00:13 Procalcitonin 0.21 ng/ml (0-0.5) 07/24/19 00:13 TSH 23.900 uIu/ml (0.300-4.500) H 07/24/19 00:13 Free T4 1.18 ng/dl (0.8-1.6) 07/24/19 00:13 Specimen Hemolysis 07/24/19 00:13 Urine Color Dark Yellow 07/24/19 04:10 Urine Appearance Clear (Clear) 07/24/19 04:10 Urine pH 5.5 (4.5-7.5) 07/24/19 04:10 Ur Specific [place] > 1.045 (1.000-1.030) H 07/24/19 04:10 Urine Protein 1+ (Negative) H 07/24/19 04:10 Urine Glucose (UA) Negative (Negative) 07/24/19 04:10 Urine Ketones Trace (Negative) H 07/24/19 04:10 Urine Blood Negative (Negative) 07/24/19 04:10 Urine Nitrite Negative (Negative) 07/24/19 04:10 Urine Bilirubin Negative (Negative) 07/24/19 04:10 Urine Urobilinogen Negative (Negative) 07/24/19 04:10 Ur Leukocyte Esterase Negative (Negative) 07/24/19 04:10 Urine WBC (Auto) 1-5 /hpf (0-5) 07/24/19 04:10 Urine RBC (Auto) 0-4 /hpf (0-4) 07/24/19 04:10 U Hyaline Cast (Auto) 10-30 /lpf (0-5) H 07/24/19 04:10 U Epithel Cells (Auto) 10-20 /lpf (0-5) H 07/24/19 04:10 Urine Bacteria (Auto) 1+ (Negative) H 07/24/19 04:10 Calcium Oxalate Crystal Present (None Prsent) A 07/24/19 04:10 Granular Casts 5-10 /lpf (0) H 07/24/19 04:10 Urine Mucus Present (None Prsent) A 07/24/19 04:10 Lyme Disease IgG Ab Negative (Negative) 07/24/19 00:13 Lyme Disease IgM Ab Negative (Negative) 07/24/19 00:13 Influenza Type A Ag Neg for Influ A (Neg) 07/24/19 00:31 Influenza Type B Ag Neg for Influ B (Neg) 07/24/19 00:[address] chest initial read no evidence of pulmonary embolism. No pericardial effusion. No pleural effusion no significant mediastinal adenopathy. CT abdomen pelvis initial read: Patent abdominal aorta, common iliac, internal/external iliac arteries. Liver, gallbladder, pancreas, spleen, adrenal glands and kidneys demonstrate no significant acute abnormality with probable incidental cortical cysts right kidney. Postop changes in the left retroperitoneum and pelvis consistent with lymph node dissection. No retroperitoneal lymphadenopathy or soft tissue mass identified. Lumbar spine MRI: 1. No evidence for abscess or collection. 2. No abnormal postcontrast enhancement. 3. Right central disc herniation L5-S1. Significant narrowing right neural foramina and moderate impact upon the anterior thecal sac. 4. Multilevel additional bulging discs with minimal to mild multifactorial narrowing of the spinal canal throughout. EKG as per my interpretation: Rate 90, NSR, normal axis, diffuse T wave flattening (1) Chest pain Chest pain type: unspecified Qualified Code(s): R07.9 - Chest pain, unspecified
[2019-07-24] MEDS ORDERED: LORazepam 0.5 MG/1 ML VIAL IV PRN (08:17)
[2019-07-24] MEDS ORDERED: ACETAMINOPHEN 325 MG TAB PO PRN (08:17)
[2019-07-24] MEDS ORDERED: MAGNESIUM SULFATE / D5W 1 GM/100 ML BAG IV SCH (08:30)
[2019-07-24] MEDS ORDERED: LEVOTHYROXINE SODIUM 25 MCG TABLET PO SCH (08:30)
[2019-07-24] MEDS: HYDROmorphone INJ 1 MG/ML SYRINGE IV PRN ×3 (08:32→15:58)
[2019-07-24] MEDS ORDERED: LACTATED RINGER'S 1,000 ML IV SCH (09:00)
[2019-07-24] MEDS ORDERED: LEVALBUTEROL HCL 0.63 MG/3 ML NEB NEB STA (09:57)
--- NOTE | 2019-07-24 10:12 | Consultation ---
Date of Consultation July 24, 2019 Assessment & Plan (1) Low back pain: At this point in time, we are very limited with any type of surgical options in light of his current medical issues. They are hoping to be transferred to [facility] today where Vikram's oncology team is located and he has received treatment in the past. Any future lumbar surgery might be best handled at his established tertiary care center. May consider pain management consult for better pain control options. activity as tolerated. Thank you for this consult. Supervising Physician Co-Signing Physician Notes Dr. Les Soto History of Present Illness This is a 33-year-old gentleman that we are asked to see in consultation in regards to acute on chronic lower back pain and bilateral lower extremity pain and weakness. Patient reports a long-term history of lower back pain that has been treated by Dr. Frausto for pain management with injections 2 to 3 years ago. Normally at home he takes NSAID therapy. 24 hours ago without acute injury, trauma, fall he has had worsening back pain radiating down both legs. He states now her legs feel weak as well. He is unable to find a comfortable position. Pain seems to radiate along the anterior lateral thighs to the knees. He does have established neuropathy from chemotherapy. He is ambling independently. Denies bowel or bladder changes. Does have a history of testicular cancer with mets to the lungs Treated with surgery and stem cell transplant. Also has had DVT/PE. No longer on anticoagulation. Attending Physician: Clay Wiggins MD Allergies Allergy/AdvReac Type Severity Reaction Status Date / Time No Known Allergies Allergy Unverified 07/24/19 00:59 Home Medications Home Medications Medication Instructions Recorded Confirmed Type No Known Home Medications 07/24/19 07/24/19 History Patient History Medical History DVT (deep venous thrombosis) Neuropathy Pulmonary embolism 2011 Testicular cancer Surgical History Bone marrow transplant status 2014 Social History Preferred Language: Hungarian Communication Ability: Effective Inspector Plug Seam Required: No Beliefs That Will Affect Care: None Current Living Situation: Spouse and Family Other Information That Helps Us Care for You: No Feels Safe at Home: Yes Safety Concerns: Feels Safe At This Time Smoking Status: Never smoker Tobacco Type: smokeless tobacco ; Do You Dip or Chew Tobacco: Yes (1 can in 2 days) ; Second Hand Exposure: No ; Tobacco Cessation Education Requested by Patient: No Hx Alcohol Use: No Hx Substance Use: No Review of Systems Review of Systems: All systems reviewed & are unremarkable except as noted in HPI & below Constitutional: + sweats Ear, Nose, Mouth, Throat: as per Subjective / HPI Respiratory: as per Subjective / HPI Cardiovascular: as per Subjective / HPI Gastrointestinal: as per Subjective / HPI Genitourinary: + as per Subjective / HPI Musculoskeletal: + back pain and + radicular pain Integumentary: as per Subjective / HPI Neurologic: + radiating pain Psychiatric: as per Subjective / HPI Endocrine: as per Subjective / HPI Hematologic / Lymphatic: as per Subjective / HPI Physical Exam Physical Exam: Patient is seen in conjunction with his . This is in room 284 bed 2. He sitting on the edge of the bed. He is diaphoretic. He is tearful. He is cooperative the exam. He has a Lidoderm patch on the midline mid lumbar back. Modestly tender to palpation to the midline lumbar spine. Negative logrolling and negative tension signs bilaterally. Calves are soft and nontender bilaterally. No evidence of ankle clonus bilaterally. Motor testing is 5 5 bilateral EHL, dorsiflexion, plantar flexion, quadriceps, hamstrings, hip flexors, hip abductor's and hip adductor's. Constitutional: + acute distress and + obese Eyes: normal visual torres by confrontation ENMT: external ear and nose normal, oropharynx normal Neck: normal visual inspection Respiratory: normal respiratory effort Cardiovascular: Vessels: dorsalis pedis pulses present Extremities: normal capillary refill Chest (Breasts): Chest: normal inspection of chest Gastrointestinal (Abdomen): Inspection/Auscultation: abdomen normal to inspection Musculoskeletal: no cyanosis or clubbing, extremities motor strength 5/5 Extremities: strength 5/5 throughout Skin: no rashes, warm and dry Neurologic: patellar DTR's 2+ bilat, sensation intact CN's II-XI intact bilaterally and deep tendon reflexes 2+ bilaterally Psychiatric: Orientation: alert and oriented x 3 Speech: normal rate/rhythm/volume of speech Results & Data Vital Signs (Past 12 Hours) Vital Signs Temp Pulse Pulse Resp BP BP Pulse Ox 07/24/19 08:28 101 H 07/24/19 08:26 36.8 C 101 H 22 124/83 91 07/24/19 07:59 92 H 22 116/78 96 07/24/19 06:16 112 H 18 129/109 H 94 07/24/19 04:28 16 111/69 98 07/24/19 03:30 99 H 20 99/44 L 100 07/24/19 02:30 85 16 103/74 94 07/24/19 01:59 85 18 128/89 95 07/24/19 01:30 86 23 136/90 95 07/24/19 00:29 90 16 116/80 95 07/23/19 23:50 36.7 C 103 H 18 118/84 95 Diagnostic Findings Magnetic Resonance Report Patient: GENEVA LEWIS JrAdmit Date: 07/23/19 MR#: [id number]: [id number] Acct ID:[id number]: [facility] [place] [id number] Age: 33Location: ED Sex: M Room/Bed: Att Phy:Diagnosis: PAIN, TROUBLE BREATHING Nolvia Phy: Ginger Francois PA-CService Date: 07/24/19 Fam Phy:Interpreting Phy: Edward Medeiros MD Admit Phy: Ordering Phy: Letitia Geiger PA-C cc: ~ MR lumbar spine wo/w con HISTORY: Pain low back pain, fever TECHNIQUE: Multiplanar multisequence MRI of the lumbar spine was performed both before and after the intravenous administration of contrast. COMPARISON: None. FINDINGS: For the purpose of the report the L5-S1 disc space will be located on axial image . Signal characteristics of the vertebral bodies are unremarkable. Moderate degenerative disc change L5-S1. Mild disc desiccation throughout the remainder of the lumbar region. The study is partially compromised due to body habitus considerations. No evidence for abnormal postcontrast enhancement. No evidence for abscess or collection. L1-L2: Minimal broad-based disc bulge. Minimal impact anterior thecal sac. L2-L3: Broad-based bulging disc with minimal impact anterior thecal sac. Minimal narrowing neural foramina bilaterally. L3-L4: Moderate multifactorial narrowing of the spinal canal. Broad-based bulging disc. Mild narrowing of the neural foramina bilaterally. L4-L5: Broad-based bulging disc. Mild impact anterior aspect of thecal sac. Mild multifactorial narrowing of the spinal canal. L5-S1: Right central disc herniation. Minimal impact anterior thecal sac. Moderate narrowing right neural foramina. IMPRESSION: 1. No evidence for abscess or collection. 2. No abnormal postcontrast enhancement. 3. Right central disc herniation L5-S1. Significant narrowing right neural foramina and moderate impact upon the anterior thecal sac. 4. Multilevel additional bulging discs with minimal to mild multifactorial narrowing of the spinal canal throughout. The above report was generated using voice recognition software. It may contain grammatical, syntax or spelling errors. Electronically signed by: Edward Medeiros M.D. 07/24/2019 6:44 AM Dictated: 07/24/19638 Transcribed: 07/24/19638 (1) Low back pain Back pain laterality: bilateral Chronicity: acute Sciatica laterality: sciatica of right side Sciatica presence: with sciatica Qualified Code(s): M54.41 - Lumbago with sciatica, right side
--- NOTE | 2019-07-24 10:46 | Hospitalist Progress Note ---
Date of Service July 24, 2019 Assessment & Plan (1) Chest pain: Chest CTA: No acute process. Negative thoracic aorta. No evidence for pulmonary embolism. EKG: Normal sinus rhythm, nonspecific T wave abnormality Initial troponin negative Unclear etiology, likely musculoskeletal given reproducibility on exam --ECHO pending Cough H/O Asthma Decreased Breath sounds on exam Nebs PRN Intractable lower back pain H/O L5, S1 DDD with stenosis as per records --MRI Lumbar Spine: No evidence for abscess or collection. No abnormal postcontrast enhancement. Right central disc herniation L5-S1. Significant narrowing right neural foramina and moderate impact upon the anterior thecal sa c. Multilevel additional bulging discs with minimal to mild multifactorial narrowing of the spinal canal throughout. --Consulted Orthopedics for Input --Pain Control Hypothyroidism TSH markedly elevated secondary to medication noncompliance due to inconvenience of taking tablet in a.m. Normal free T4 Started on levothyroxine 25 mcg daily Possible Acute Leukemia Polycythemia Blast cells on blood work New onset Thrombocytopenia Peripheral smear pending Appreciate oncology input Dr. Quintero Plan to be transferred to [facility]--given concern for acute leukemia and history of stem cell transplant Accepting Physician Dr. Vamsi Alvarado--oncology service at [facility] H/O Testicular cancer (embryonal carcinoma) S/P surgery/chemotherapy status post stem cell transplant tx Further management by primary oncology at [facility] Acute kidney injury Likely prerenal secondary to dehydration Continue IV fluids Avoid nephrotoxic agents as able H/O PE/DVT Currently not on anticoagulation Previously was on Coumadin chronic migraine Stable monitor Prediabetes Outpatient hemoglobin A1c: 5.09 April 2019 Past tobacco abuse DVT Px: SCDs RE thrombocytopenia Code Status Full code Subjective Patient is seen and examined at bedside Patient complains of lower back pain radiating down his legs associated with some weakness Also states having ongoing chest discomfort all across his chest, shortness of breath Reports having fever yesterday Denies any dizziness, abdominal pain, nausea, vomiting Discussed with oncology Dr. Quintero today. Peripheral smear suggestive of possible acute leukemia Plan to be transferred to [facility] accepting physician Dr. Vamsi Alvarado Review of Systems Review of Systems: All systems reviewed & are unremarkable except as noted in HPI & below Physical Exam Physical Exam: Physical Exam: Vitals signs as noted above General Appearance:Moderately built and nourished, no apparent distress Head: normocephalic, Atraumatic Eyes: normal inspection, EOMI Neck: supple, Trachea midline Respiratory/Chest: Decreased breath sounds, CTA Cardiovascular: S1, S2, No murmur, +Tachycardia Abdomen/GI:Soft, Non tender, Bowel sounds present Back:Lumbar tenderness Extremities/Musculoskelatal:normal inspection, no edema Neurologic/Psych:AAOX3, B/L LE weakness 3-4/5 Skin: normal color, warm Results & Data Vital Signs (Past 12 Hours) Vital Signs Temp Pulse Pulse Resp BP BP Pulse Ox 07/24/19 10:04 120 H 30 H 93 07/24/19 08:28 101 H 07/24/19 08:26 36.8 C 101 H 22 124/83 91 07/24/19 07:59 92 H 22 116/78 96 07/24/19 06:16 112 H 18 129/109 H 94 07/24/19 04:28 16 111/69 98 07/24/19 03:30 99 H 20 99/44 L 100 07/24/19 02:30 85 16 103/74 94 07/24/19 01:59 85 18 128/89 95 07/24/19 01:30 86 23 136/90 95 07/24/19 00:29 90 16 116/80 95 07/23/19 23:50 36.7 C 103 H 18 118/84 95 Laboratory Results Short CBC 07/24/19 Range/Units 00:13 WBC 6.46 (4.8-10.8) K/uL Hgb 19.0 H (14.0-18.0) g/dL Hct 52.3 H (42-52) % Plt Count 74 L (130-400) K/uL BMP 07/24/19 00:13 Sodium 135 L Potassium 3.7 Chloride 103 Carbon Dioxide 21 BUN 22 H Creatinine 1.43 H Glucose 132 H Calcium 9.5 Cardiac Enzymes 07/24/19 07/24/19 Range/Units 00:13 08:48 Troponin I 0.020 0.022 (0-0.045) ng/ml Liver Function 07/24/19 Range/Units 00:13 Total Bilirubin 0.4 (0.2-1) mg/dl AST 43 H (15-37) U/L ALT 42 (12-78) U/L Alkaline Phosphatase 99 (45-117) U/L Albumin 3.6 (3.4-5.0) gm/dl Urine 07/24/19 Range/Units 04:10 Urine Color Dark Yellow Urine Appearance Clear (Clear) Urine pH 5.5 (4.5-7.5) Ur Specific [place] > 1.045 H (1.000-1.030) Urine Protein 1+ H (Negative) Urine Glucose (UA) Negative (Negative) (1) Chest pain Chest pain type: unspecified Qualified Code(s): R07.9 - Chest pain, unspecified
--- NOTE | 2019-07-24 10:53 | Discharge Summary ---
Date of Service July 24, 2019 Admission HPI Per Admitting Provider History obtained from patient, family, and records. 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 1 week history of pleuritic chest pain with shortness of breath. No cough symptoms. 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 Patient directed by urgent care center to [facility] ER. Patient noted to be polycythemic at 18.8, thrombocytopenic at 113, smudge cells noted on peripheral smear. PE study unremarkable. Patient discharged from the ER. Persistent chest pain. Yesterday patient noted achy low back pain going down both legs worse with movement and bending over. Both legs weak and a little numb, left greater than the right. Low-grade fever at home as per . No bowel/bladder incontinence symptoms. Usual migraine headaches. No recollection of unusual exertion or lifting as per patient. Intractable discomfort at the ER. 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 Admission Exam Per Admitting Provider GENERAL: uncomfortable, obese, looks older than stated age, no respiratory distress, seated on the left side of the stretcher SKIN: Normal color, flushed, warm HEENT: [place] palpebral conjunctivae, no ptosis, dry buccal mucosa NECK : Supple, short neck, no tenderness CHEST : CTA, anterior chest wall tenderness HEART : tachycardic, no obvious murmurs ABDOMEN: Some distention, nontender BACK : Low back tenderness EXTREMITIES : No LE swelling/tenderness, no other conspicuous deformities noted NEUROLOGIC : Coherent, no facial asymmetry, MMTS BUE 4/5; BLE 3/5. Gait and stance not assessed Principal Diagnosis Possible acute ischemia Acute kidney injury Intractable lower back pain--Right central disc herniation L5-S1 Discharge Data Allergies Allergy/AdvReac Type Severity Reaction Status Date / Time No Known Allergies Allergy Unverified 07/24/19 00:59 Consultations 07/24/19 04:04 ED Decision to Admit Stat 07/24/19 08:17 Consult Hematology Routine Consult Orthopedic Surgery Routine 07/24/19 10:08 Burn CD for patient Stat Procedures Performed MRI Lumbar Spine: No evidence for abscess or collection. No abnormal postcontrast enhancement. Right central disc herniation L5-S1. Significant narrowing right neural foramina and moderate impact upon the anterior thecal sac. Multilevel additional bulging discs with minimal to mild multifactorial narrowing of the spinal canal throughout. Chest CTA: No acute process. Negative thoracic aorta. No evidence for pulmonary embolism. Abdominal/pelvis CTA: Normal CT angiogram of the abdomen and pelvis. No acute process in the abdomen or pelvis. Postoperative surgical clips within the periaortic and retroperitoneal regions. Ordered Studies 07/24/19 00:13 CT angio abdomen pelvis w con Urgent CT angio chest dissec wo/w con Urgent 07/24/19 04:04 MR lumbar spine wo/w con Urgent Hospital Course (1) Chest pain: Chest CTA: No acute process. Negative thoracic aorta. No evidence for pulmonary embolism. EKG: Normal sinus rhythm, nonspecific T wave abnormality Initial troponin negative Unclear etiology, likely musculoskeletal given reproducibility on exam --ECHO pending Cough H/O Asthma Decreased Breath sounds on exam Nebs PRN Intractable lower back pain H/O L5, S1 DDD with stenosis as per records --MRI Lumbar Spine: No evidence for abscess or collection. No abnormal postcontrast enhancement. Right central disc herniation L5-S1. Significant narrowing right neural foramina and moderate impact upon the anterior thecal sac. Multilevel additional bulging discs with minimal to mild multifactorial narrowing of the spinal canal throughout. --Consulted Orthopedics for Input --Pain Control Hypothyroidism TSH markedly elevated secondary to medication noncompliance due to inconvenience of taking tablet in a.m. Normal free T4 Started on levothyroxine 25 mcg daily Possible Acute Leukemia Polycythemia Blast cells on blood work New onset Thrombocytopenia Peripheral smear pending Appreciate oncology input Dr. Quintero Plan to be transferred to [facility]--given concern for acute leukemia and history of stem cell transplant Accepting Physician Dr. Vamsi Alvarado--oncology service at [facility] H/O Testicular cancer (embryonal carcinoma) S/P surgery/chemotherapy status post stem cell transplant tx Further management by primary oncology at [facility] Acute kidney injury Likely prerenal secondary to dehydration Continue IV fluids Avoid nephrotoxic agents as able H/O PE/DVT Currently not on anticoagulation Previously was on Coumadin chronic migraine Stable monitor Prediabetes Outpatient hemoglobin A1c: 5.09 April 2019 Past tobacco abuse DVT Px: SCDs RE thrombocytopenia Code Status Full code Total Time Total Time Spent Total Time Spent (In Minutes): 45 minutes Total Time Includes: Examination of the Patient, Discharge Planning, Medication Reconciliation, Communication With Other Providers and Other Discharge Plan Discharge Items Patient Disposition: Transfer Acute Care Hospital Reason For Visit: CP, BACK PAIN Discharge Diagnosis: Possible acute leukemia Intractable back pain--right central disc herniation L5-S1 Acute kidney injury Activity: Per Instructions section Non-emergency contact: Primary Care Provider and Oncologist Call non-emergency contact if: you have any medication questions, your symptoms worsen, your pain is not controlled, your pain is worsening, your pain is unusual for you, your pain is concerning for you and you have a fever Follow-up/Referrals: Ginger Francois PA-C [Primary Care Provider] - Diet: Heart Healthy Addtl Attending Provider Instructions: Follow-up with your Physician Dr. Vamsi Alvarado--oncology service at [facility] Pending Studies at Discharge: Yes Studies:: Peripheral smear, blood and urine cultures Stand-Alone Forms: My [employer] Skilled Items Patient informed of condition?: Yes DNR: No Discharge Level of Care: Other Communicable Disease: No Discharge Prognosis: Stable Lines: Peripheral IV Urinary Catheter: No Medications and DC Order Prescriptions: New levothyroxine [Synthroid] 25 mcg Tablet 25 mcg PO DAILYBB Qty: 0 RF: 0 Continued No Known Home Medications RF: 0 Discharge Orders: Discharge Order (Routine); Ordered 07/24/19 Ordered By: Clay Wiggins Admission Data Admit Date/Time: 07/24/19 06:54 Attending Provider: Clay Wiggins Admit Provider: Roger Ivory Primary Care Provider: Ginger Francois Other Providers: Roger Ivory ; Akira Quintero Gregory M
[2019-07-24] MEDS ORDERED: LEVALBUTEROL HCL 0.63 MG/3 ML NEB NEB SCH (13:00)
--- NOTE | 2019-07-24 14:01 | Consultation Report ---
DATE OF CONSULTATION: 07/24/2019 REASON FOR CONSULTATION: Suspected acute leukemia. HISTORY OF PRESENT ILLNESS: Tu Bello is a very pleasant but unfortunate 33-year-old gentleman who presents to [facility] in the pay station collector hours of 07/24/2019 with 1 week history of pleuritic chest pain and shortness of breath. The patient originally presented to [facility] Emergency Room, was noted to be polycythemic and thrombocytopenic with smudge cells noted on peripheral smear. He was ruled out for pulmonary embolism. While the patient and his are not the best of historians clearly, this gentleman has been ill for close to a week, manifested by low grade fever and diaphoresis. He also states his appetite has not been the best over the past several days. Upon presentation to [facility], the hospitalist alerted me to his CBC which reflect normal WBCs, mild thrombocytopenia and indeed he is polycythemic with a hemoglobin in excess of 19 grams per deciliter. However, blasts were noted within the differential. I examined the peripheral smear along with Dr. Samson and agree the cells seen are indeed leukemic blasts. This gentleman was diagnosed with testicular cancer back in 2011 and again I do not know specifics and surmise that this was most likely nonseminomatous as disease was indeed node positive. After orchiectomy, he received adjuvant chemotherapy. Again, I surmised bleomycin, etoposide and cisplatin. Apparently, he had a relapse within 6 months' time, underwent retroperitoneal lymphadenectomy followed by further adjuvant chemotherapy (regimen unknown). The patient continued to have relapses and subsequently underwent bone marrow stem cell transplant x2. I assume was given high dose chemotherapy preceding both of these procedures all performed at the [facility]. This gentleman has been following regularly with the transplant service in [place] and was last seen in April and given a clean bill of health. 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 PAST MEDICAL HISTORY: Again, significant for testicular cancer which was metastatic to regional lymphadenopathy and lungs. Pulmonary embolism/DVT, chronic migraine, prediabetic, suffers from asthma, chronic peripheral neuropathy, hypothyroidism. MEDICATIONS: He was on no prescription medications. ALLERGIES: No known drug allergies. SOCIAL HISTORY: The patient lives with his spouse. He is an active tobacco chewer. Negative for alcohol or illicit substances. FAMILY HISTORY: Positive for hypothyroidism, heart disease and skin cancers. REVIEW OF SYSTEMS: As per HPI, general malaise, low grade fever, diaphoresis, anorexia. Positive for 10 pound weight loss. SKIN: No rashes or lesions. No history of dermatoses. HEENT: Negative for headaches, lightheadedness or dizziness. No visual or hearing deficits. No sinus symptoms, sore throat or dysphagia. LYMPH: No history of lymphoproliferative disease. CARDIAC: No history of coronary artery disease. PULMONARY: Positive for shortness of breath and dyspnea on exertion, history of asthma. No cough or hemoptysis. GASTROINTESTINAL: Positive for intermittent nausea. No abdominal pain. Negative for hematochezia or melena of stools. GENITOURINARY: No history of prostate disease. No hematuria, dysuria, urinary incontinence. PSYCHIATRIC: Negative for anxiety, depression or psychoses. ENDOCRINE: Prediabetic. Negative for thyroid disease. MUSCULOSKELETAL: Generalized weakness. No history of arthralgias. NEUROLOGIC: Negative for seizure, stroke, or migraine headache. HEMATOLOGIC: Positive for polycythemia and abnormal white cell differential, mild thrombocytopenia. PHYSICAL EXAMINATION: GENERAL: Very pleasant morbidly obese 33-year-old gentleman, awake, alert and appropriate, in no acute distress. VITAL SIGNS: Temperature 37.4, pulse 108, respiratory rate 16, blood pressure 137/70. SKIN: Warm, dry, noncyanotic, facial plethora is noted. HEENT: Head is atraumatic, normocephalic. Eyes: PERRLA, EOMI. Sclerae nonicteric. No conjunctival injection. Nares are patent without rhinorrhea or discharge. Throat clear. Tongue midline. Mucous membranes are moist. NECK: Bull neck. No JVD or thyromegaly. LYMPHATICS: No cervical or supraclavicular palpable nodes. HEART: Regular rate and rhythm. No clicks, rubs, murmurs or gallops. LUNGS: Clear to auscultation bilaterally. ABDOMEN: Obese, soft, nontender, nondistended. No rigidity or guarding. No palpable hepatosplenomegaly. EXTREMITIES: No calf tenderness or swelling. No clubbing, cyanosis or edema. NEUROLOGICALLY: Grossly intact. Cranial nerves II-XII are intact. LABORATORY DATA: WBC count 6460, hemoglobin 19, hematocrit 52.3%, platelet count 74,000. Blast, 120 blasts seen in the peripheral blood, nucleated RBCs were also seen. Sodium 135, potassium 102, carbon dioxide 21, chloride 103, creatinine 1.43, BUN 22. TSH 23.9. IMAGING: Lumbar spine MRI reveals right central disc herniation at L5-S1 with significant narrowing in the right neural foramina and moderate impact on the anterior thecal sac, multilevel additional bulging discs with minimal to mild multifactorial narrowing of the spinal canal throughout. Chest x-ray was negative. CTA of the abdomen and pelvis was negative. IMPRESSION: 1. Subacute onset low lumbar pain. 2. 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 3. Polycythemia. 4. Thrombocytopenia. 5. Subclinical hypothyroidism, 6. History of deep vein thrombosis/pulmonary embolism. PLAN: The hospitalist service asked me to evaluate Mr. Bello for abnormality seen on peripheral blood. This gentleman actually came in because of acute back pain, but then admitted to feeling ill over the past week manifested by low grade fever, diaphoresis, anorexia and a 10-pound weight loss. 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 He now presents with cytopenias and peripheral blood leukemic blasts, which I suggest is an emerging secondary leukemia from his prior chemotherapy. If my hypothesis is correct, this gentleman's prognosis is quite poor as secondary leukemias are difficult to gain remission and nearly impossible to cure. The hospitalist service has contacted [facility] and apparently bed is not available at this time. Would continue medical management including vigorous IV hydration to do it down his hemoglobin and hematocrit. I would not be in favor of phlebotomy in his clinical state. We will ask the primary team check coags as DIC can superimpose in those suffering from acute leukemia. Hopefully, I will become available within the next 24 hours. Thank you very much for allowing me to participate in his care. If you have any questions or concerns, feel free to contact me by phone. CURTIS
== END 2019-07-24 17:52 | disposition short-term general hospital (02) ==
LOC: 2N 23:48 → ED 23:48 → SUATTDRO 07-24 06:54 → 2N 07-24 07:59

== ENCOUNTER 2019-10-03 19:15 | Inpatient (IN) ==
[2019-10-03] MEDS ORDERED: OXYMETAZOLINE 0.05% 30 ML BTL ONE ×2 (19:31→19:33)
[2019-10-03] MEDS ORDERED: SODIUM CHLORIDE 0.9% 500 ML IV SCH (19:45)
[2019-10-03] MEDS ORDERED: SODIUM CHLORIDE 0.9% 250 ML IV PRN (19:46)
[2019-10-03 20:14] LABS: Partial Thromboplastin Time 26.7 Seconds (21.0-31.0); Prothrombin Time 10.3 Seconds (9.0-12.0)
[2019-10-03 20:17] LABS: Alanine Aminotransferase 263 U/L (12-78); Albumin Level 2.7 gm/dl (3.4-5.0); BUN Creatinine Ratio 24.9 (10-20); Blood Urea Nitrogen 19 mg/dl (7-18); Calcium 8.8 mg/dl (8.5-10.1); Carbon Dioxide 26 mmol/L (21-32); Chloride 107 mmol/L (98-107); Est GFR (African American) 140.7; Est GFR (Non-African American) 121.4; Glucose 143 mg/dl (70-99); Potassium 3.3 mmol/L (3.5-5.1); Sodium 140 mmol/L (136-145)
[2019-10-03 20:20] LABS: Albumin Globulin Ratio 0.7 (0.9-2); Alkaline Phosphatase 121 U/L (45-117); Aspartate Aminotransferase 26 U/L (15-37); Bilirubin,Total 1.2 mg/dl (0.2-1); Globulin 3.7 gm/dl (2.5-4.0); Total Protein 6.4 gm/dl (6.4-8.2)
[2019-10-03 20:25] LABS: Hematocrit (blood only) 20.6 % (42-52); Hemoglobin 6.9 g/dL (14.0-18.0); Mean Corpuscular Hemoglobin 30.4 pg (25-34); Mean Corpuscular Hgb Conc 33.5 g/dL (32-36); Mean Corpuscular Volume 90.7 fL (80-100); Platelet Count 17 K/uL (130-400); RDW Coefficient of Variation 17.5 % (11.5-14.5); RDW Standard Deviation 58.6 fL (36.4-46.3); Red Blood Count 2.27 M/uL (4.7-6.1); White Blood Count 0.06 K/uL (4.8-10.8)
[2019-10-03 20:27] LABS: Platelet Estimate SIGNIFIC DECREASED (Normal)
[2019-10-03] MEDS ORDERED: POTASSIUM CHLORIDE 20 MEQ TABCR PO STA ×2 (20:42→21:03)
[2019-10-03 20:57] LABS: Magnesium 1.5 mg/dl (1.8-2.4)
[2019-10-03] MEDS ORDERED: MAGNESIUM OXIDE 400 MG TAB PO STA (21:03)
--- NOTE | 2019-10-03 21:28 | XRay Report ---
XR chest 1V portable CLINICAL HISTORY: sob dyspnea COMPARISON STUDY: 07/24/2019 FINDINGS: Central catheter in superior vena cava. The lungs are clear. Diaphragms are smooth. IMPRESSION: No acute process. ACT 112: Negative or not required by law. The above report was generated using voice recognition software. It may contain grammatical, syntax or spelling errors. Electronically signed by: Edward Medeiros M.D. 10/03/2019 9:27 PM
--- NOTE | 2019-10-03 22:06 | History & Physical Report ---
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 Conway.) Replace electrolytes DVT prophylaxis SCDs RE thrombocytopenia, epistaxis Full code History of Present Illness Chief Complaint: Epistaxis Primary Care Provider: Ginger Francois PA-C History obtained from patient, family, and records. 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 Recent [facility] confinement last July 2019 for low back pain. Blood work showed possible acute leukemia. Patient transferred to [facility] for hot end operator recommendation. Patient subsequently underwent chemotherapy. Developed hepatic failure/pancreatitis from PEG asparaginase. Patient prescribed levocarnitine and prednisone taper course for complication. Had to be on insulin temporarily for uncontrolled sugars following prednisone Rx. 2 confinements at [facility] last month for chemotherapy, last one being from September 26-2018. Patient went for routine outpatient blood work ordered by local hot end operator this a.m. Outpatient hemoglobin noted to be 6.8, platelets noted to be 19. Arrangements made for outpatient irradiated PRBC and pheresed platelet trans fusion made by hot end operator at [facility] for tomorrow morning. This afternoon, patient noted epistaxis more on the left side, more protracted than prior episodes. No headache, some dizziness and lightheadedness as per patient. No chest pain. Shortness of breath on exertion. Cough following swallowed blood from epistaxis. Patient denies abdominal pain, black/bloody stools/ hematuria. At the ER, nasal clamp applied after decongestant administration. 1 unit for recent platelets transfused at the ER. Epistaxis currently resolved. 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, disabled Allergies Allergy/AdvReac Type Severity Reaction Status Date / Time pegaspargase AdvReac Severe Liver Unverified 10/03/19 20:10 Issues Home Medications Home Medications Medication Instructions Recorded Confirmed Type acyclovir 200 mg PO QAM 10/03/19 10/03/19 History allopurinol 300 mg PO HS 10/03/19 10/03/19 History ciprofloxacin HCl 500 mg PO BID 10/03/19 10/03/19 History gabapentin 300 mg PO TID 10/03/19 10/03/19 History insulin NPH isoph U-100 human 0 unit SUBCUT UD 10/03/19 10/03/19 History [Humulin N NPH Insulin KwikPen] insulin lispro [Humalog KwikPen 0 unit SUBCUT UD 10/03/19 10/03/19 History Insulin] lansoprazole 0 mg PO QAM 10/03/19 10/03/19 History levocarnitine (with sugar) 0 mg PO Q8H 10/03/19 10/03/19 History nystatin 0 ml PO DAILY PRN 10/03/19 10/03/19 History oxycodone 5 mg PO .Q4-6H 10/03/19 10/03/19 History prochlorperazine maleate 10 mg PO UD PRN 10/03/19 10/03/19 History Past Med/Surg History Medical History DVT (deep venous thrombosis) Epistaxis Leukemia Neuropathy Pulmonary embolism 2011 Testicular cancer Surgical History Bone marrow transplant status 2013 Social History Preferred Language: Palestinian Communication Ability: Effective Highway Worker Required: No Beliefs That Will Affect Care: None Current Living Situation: Spouse and Family Feels Safe at Home: Yes Safety Concerns: Feels Safe At This Time Smoking Status: Never smoker Tobacco Type: smokeless tobacco ; Second Hand Exposure: No ; Hx Alcohol Use: Yes Hx Substance Use: No Review of Systems Review of Systems: As per HPI, all 10 systems reviewed, all other ROS negative Physical Exam Physical Exam: GENERAL: obese, no respiratory distress SKIN: Pallor, warm HEENT: Alopecia, pale palpebral conjunctivae, no ptosis, dried blood over philtrum, blood clots L nostril, dry buccal mucosa NECK : Supple, short neck, no tenderness CHEST : CTA, no chest wall tenderness HEART : tachycardic, no obvious murmurs ABDOMEN: Some distention, nontender BACK : Low back tenderness EXTREMITIES : No LE swelling/tenderness, no other conspicuous deformities noted NEUROLOGIC : Coherent, no facial asymmetry, gait and stance not assessed Results & Data Vital Signs (Past 12 Hours) Vital Signs Temp Pulse Resp BP Pulse Ox 10/03/19 21:26 105 H 18 139/90 99 10/03/19 21:15 109 H 20 133/79 100 10/03/19 21:00 116 H 21 143/85 H 100 10/03/19 20:56 36.9 C 124 H 18 143/92 H 100 10/03/19 20:45 118 H 18 143/92 H 100 10/03/19 20:39 36.9 C 120 H 19 137/93 100 10/03/19 20:02 100 10/03/19 19:49 124 H 18 148/83 H 100 10/03/19 19:23 37.3 C 110 H 20 94/63 L 100 Laboratory Results Laboratory Results WBC 0.06 K/uL (4.8-10.8) L* 10/03/19 19:41 RBC 2.27 M/uL (4.7-6.1) L 10/03/19 19:41 Hgb 6.9 g/dL (14.0-18.0) L* 10/03/19 19:41 Hct 20.6 % (42-52) L* 10/03/19 19:41 MCV 90.7 fL (80-100) 10/03/19 19:41 MCH 30.4 pg (25-34) 10/03/19 19:41 MCHC 33.5 g/dL (32-36) 10/03/19 19:41 RDW Std Deviation 58.6 fL (36.4-46.3) H 10/03/19 19:41 RDW Coeff of Tatyana 17.5 % (11.5-14.5) H 10/03/19 19:41 Plt Count 17 K/uL (130-400) L* 10/03/19 19:41 Immature Gran % (Auto) Cancelled 10/03/19 19:41 Neut % (Auto) Cancelled 10/03/19 19:41 Lymph % (Auto) Cancelled 10/03/19 19:41 [place] % (Auto) Cancelled 10/03/19 19:41 Eos % (Auto) Cancelled 10/03/19 19:41 Baso % (Auto) Cancelled 10/03/19 19:41 Immature Gran # (Auto) Cancelled 10/03/19 19:41 Neut # (Auto) Cancelled 10/03/19 19:41 Lymph # (Auto) Cancelled 10/03/19 19:41 [place] # (Auto) Cancelled 10/03/19 19:41 Eos # (Auto) Cancelled 10/03/19 19:41 Baso # (Auto) Cancelled 10/03/19 19:41 Neutrophils % (Manual) Cancelled 10/03/19 19:41 Band Neutrophils % Cancelled 10/03/19 19:41 Lymphocytes % (Manual) Cancelled 10/03/19 19:41 Prolymphocyte % Cancelled 10/03/19 19:41 Reactive Lymphs % (Man) Cancelled 10/03/19 19:41 Monocytes % (Manual) Cancelled 10/03/19 19:41 Eosinophils % (Manual) Cancelled 10/03/19 19:41 Basophils % (Manual) Cancelled 10/03/19 19:41 Metamyelocytes % (Man) Cancelled 10/03/19 19:41 Myelocytes % (Man) Cancelled 10/03/19 19:41 Promyelocytes % (Man) Cancelled 10/03/19 19:41 Blast Cells % (Manual) Cancelled 10/03/19 19:41 Plasma Cell % (Manual) Cancelled 10/03/19 19:41 Other Cells % Cancelled 10/03/19 19:41 Nucleated RBC % Cancelled 10/03/19 19:41 Neutrophils # (Manual) Cancelled 10/03/19 19:41 Band Neutrophils # Cancelled 10/03/19 19:41 Total Absolute Neuts Cancelled 10/03/19 19:41 Lymphocytes # (Manual) Cancelled 10/03/19 19:41 Prolymphocyte # Cancelled 10/03/19 19:41 Reactive Lymphs # Cancelled 10/03/19 19:41 Total Abs Lymphocytes Cancelled 10/03/19 19:41 Monocytes # (Manual) Cancelled 10/03/19 19:41 Eosinophils # (Manual) Cancelled 10/03/19 19:41 Basophils # (Manual) Cancelled 10/03/19 19:41 Metamyelocytes # (Man) Cancelled 10/03/19 19:41 Myelocytes # (Manual) Cancelled 10/03/19 19:41 Promyelocytes # (Man) Cancelled 10/03/19 19:41 Blast Cells # (Man) Cancelled 10/03/19 19:41 Plasma Cell # (Manual) Cancelled 10/03/19 19:41 Other Cells # Cancelled 10/03/19 19:41 Nucleated RBCs # (Man) Cancelled 10/03/19 19:41 Hypersegmented Neuts Cancelled 10/03/19 19:41 Hyposegmented Neuts Cancelled 10/03/19 19:41 Hypogranular Neuts Cancelled 10/03/19 19:41 Large Granular Lymphs Cancelled 10/03/19 19:41 # Lrg Granular Lymphs Cancelled 10/03/19 19:41 Hairy Cells Cancelled 10/03/19 19:41 Smudge Cells Cancelled 10/03/19 19:41 Toxic Granulation Cancelled 10/03/19 19:41 Toxic Vacuolation Cancelled 10/03/19 19:41 Dohle Bodies Cancelled 10/03/19 19:41 Margarita Rods Cancelled 10/03/19 19:41 Platelet Estimate SIGNIFIC DECREASED (Normal) 10/03/19 19:41 Hypogranular Platelets Cancelled 10/03/19 19:41 Clumped Platelets Cancelled 10/03/19 19:41 Giant Platelets Cancelled 10/03/19 19:41 Platelet Satelliting Cancelled 10/03/19 19:41 RBC Morphology Cancelled 10/03/19 19:41 Polychromasia Cancelled 10/03/19 19:41 Hypochromasia Cancelled 10/03/19 19:41 Poikilocytosis Cancelled 10/03/19 19:41 Basophilic Stippling Cancelled 10/03/19 19:41 Anisocytosis Cancelled 10/03/19 19:41 Microcytosis Cancelled 10/03/19 19:41 Macrocytosis Cancelled 10/03/19 19:41 Spherocytes Cancelled 10/03/19 19:41 Pappenheimer Bodies Cancelled 10/03/19 19:41 Sickle Cells Cancelled 10/03/19 19:41 Target Cells Cancelled 10/03/19 19:41 Tear Drop Cells Cancelled 10/03/19 19:41 Ovalocytes Cancelled 10/03/19 19:41 Stomatocytes Cancelled 10/03/19 19:41 [place] Bodies Cancelled 10/03/19 19:41 Echinocytes Cancelled 10/03/19 19:41 Acanthocytes (Spur) Cancelled 10/03/19 19:41 Rouleaux Cancelled 10/03/19 19:41 RBC Agglutinates Cancelled 10/03/19 19:41 Schistocytes Cancelled 10/03/19 19:41 RBC Morph Comment Cancelled 10/03/19 19:41 Sezary Cell Cancelled 10/03/19 19:41 PT 10.3 Seconds (9.0-12.0) 10/03/19 19:41 INR 1.0 (0.9-1.1) 10/03/19 19:41 APTT 26.7 Seconds (21.0-31.0) 10/03/19 19:41 PTT Ratio 1.0 10/03/19 19:41 Sodium 140 mmol/L (136-145) 10/03/19 19:41 Potassium 3.3 mmol/L (3.5-5.1) L 10/03/19 19:41 Chloride 107 mmol/L (98-107) 10/03/19 19:41 Carbon Dioxide 26 mmol/L (21-32) 10/03/19 19:41 Anion Gap 8.0 (3-11) 10/03/19 19:41 BUN 19 mg/dl (7-18) H 10/03/19 19:41 Creatinine 0.75 mg/dl (0.6-1.4) 10/03/19 19:41 Est Cr Clr Drug Dosing Not Reportable 10/03/19 19:41 Est GFR ( Amer) 140.7 10/03/19 19:41 Est GFR (Non-Af Amer) 121.4 10/03/19 19:41 BUN/Creatinine Ratio 24.9 (10-20) H 10/03/19 19:41 Glucose 143 mg/dl (70-99) H 10/03/19 19:41 Calcium 8.8 mg/dl (8.5-10.1) 10/03/19 19:41 Magnesium 1.5 mg/dl (1.8-2.4) L 10/03/19 19:41 Magnesium Cancelled 10/03/19 19:41 Total Bilirubin 1.2 mg/dl (0.2-1) H 10/03/19 19:41 AST 26 U/L (15-37) 10/03/19 19:41 ALT 263 U/L (12-78) H 10/03/19 19:41 Alkaline Phosphatase 121 U/L (45-117) H 10/03/19 19:41 Total Protein 6.4 gm/dl (6.4-8.2) 10/03/19 19:41 Albumin 2.7 gm/dl (3.4-5.0) L 10/03/19 19:41 Globulin 3.7 gm/dl (2.5-4.0) 10/03/19 19:41 Albumin/Globulin Ratio 0.7 (0.9-2) L 10/03/19 19:41 Procalcitonin 0.24 ng/ml (0-0.5) 10/03/19 19:47 TSH 4.470 uIu/ml (0.300-4.500) 10/03/19 19:41 TSH Cancelled 10/03/19 19:41 Blood Type Cancelled 10/03/19 19:41 Blood Type Recheck A Positive 10/03/19 19:41 Antibody Screen Cancelled 10/03/19 19:41 Crossmatch See Detail 10/03/19 19:41 Diagnostic Findings Chest x-ray : No acute process EKG as per my interpretation : Rate 120, sinus tachycardia, normal axis, T wave flattening inferior leads
--- NOTE | 2019-10-03 22:18 | Emergency Department Note ---
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) Location: face (nose (left sided epistaxis)) Pain Consistency: + constant (lasted 1.5 hours) Maximum Pain Intensity: 8 Quality: + other (heavy "waterfall") Relieved By: + none Associated symptoms: + shortness of breath (pain with inhalation) and + other (spitting up blood during episode, recent lightheadedness and dizziness) Treatments prior to arrival: other (leaning forward with ice on back of neck (no relief)) The patient is a 33 year old male with a history of leukemia, chemotherapy treatment (finished 4 days ago), and epistaxis who presents to the Emergency Room with complaints of epistaxis. The patient's family reports that the patient began to experience left sided epistaxis last night that is worse than epistaxis episodes in the past. She states that this episode was heavier than usual (saturated 3 paper towels, waterfall flow) and lasted 1.5 hours. She also notes that he was spitting up blood. The patient leaned forward with ice on the back of his neck with no relief. The patient also reports feeling recent lightheadedness and dizziness associated with pain with inhalation. He denies any recent trauma. Of note, he is scheduled for blood and platelets tomorrow at [facility] and was told by [facility] to come to the ED today for his symptoms. The patient and his family offer no further concerns at this time. Home Medications Home Medications Medication Instructions Recorded Confirmed Type acyclovir 200 mg PO QAM 10/03/19 10/03/19 History allopurinol 300 mg PO HS 10/03/19 10/03/19 History ciprofloxacin HCl 500 mg PO BID 10/03/19 10/03/19 History gabapentin 300 mg PO TID 10/03/19 10/03/19 History insulin NPH isoph U-100 human 0 unit SUBCUT UD 10/03/19 10/03/19 History [Humulin N NPH Insulin KwikPen] insulin lispro [Humalog KwikPen 0 unit SUBCUT UD 10/03/19 10/03/19 History Insulin] lansoprazole 0 mg PO QAM 10/03/19 10/03/19 History levocarnitine (with sugar) 0 mg PO Q8H 10/03/19 10/03/19 History nystatin 0 ml PO DAILY PRN 10/03/19 10/03/19 History oxycodone 5 mg PO .Q4-6H 10/03/19 10/03/19 History prochlorperazine maleate 10 mg PO UD PRN 10/03/19 10/03/19 History Allergies Allergy/AdvReac Type Severity Reaction Status Date / Time pegaspargase AdvReac Severe Liver Unverified 10/03/19 20:10 Issues Past Med/Surg History Medical History DVT (deep venous thrombosis) Epistaxis Leukemia Neuropathy Pulmonary embolism 2011 Testicular cancer Surgical History Bone marrow transplant status 2014 Social History Preferred Language: Libyan Communication Ability: Effective Drop Tester Required: No Beliefs That Will Affect Care: None Current Living Situation: Spouse and Family Feels Safe at Home: Yes Smoking Status: Never smoker Tobacco Type: smokeless tobacco ; Second Hand Exposure: No ; Hx Alcohol Use: No Hx Substance Use: No Review of Systems See HPI for pertinent positives & negatives. and A total of 10 systems reviewed and were otherwise negative Physical Exam Vital Signs Vital Signs - 24 hr 10/03/19 19:23 10/03/19 19:49 10/03/19 20:02 Temperature 37.3 C Temperature Source Oral Pulse Rate 110 H 124 H Pulse Rate from SpO2 Sensor 122 H Respiratory Rate 20 18 Respiratory Effort / Characteristics Non-Labored Spontaneous Respiratory Depth Normal Blood Pressure 94/63 L 148/83 H Blood Pressure Mean 73 110 Pulse Oximetry 100 100 100 Oxygen Delivery Method Room Air Room Air Sepsis Recent Fever Within 48 Hours No Sepsis New/Unexplained Change in Mental Status No Sepsis Action Taken by Nursing No Action Required 10/03/19 20:39 10/03/19 20:45 10/03/19 20:56 Temperature 36.9 C 36.9 C Temperature Source Oral Oral Pulse Rate 120 H 118 H 124 H Pulse Rate from SpO2 Sensor 118 H 119 H Respiratory Rate 19 18 18 Respiratory Effort / Characteristics Respiratory Depth Blood Pressure 137/93 143/92 H 143/92 H Blood Pressure Mean 98 101 109 Pulse Oximetry 100 100 100 Oxygen Delivery Method Sepsis Recent Fever Within 48 Hours Sepsis New/Unexplained Change in Mental Status Sepsis Action Taken by Nursing 10/03/19 21:00 10/03/19 21:15 10/03/19 21:26 Temperature Temperature Source Pulse Rate 116 H 109 H 105 H Pulse Rate from SpO2 Sensor 116 H 110 H Respiratory Rate 21 20 18 Respiratory Effort / Characteristics Respiratory Depth Blood Pressure 143/85 H 133/79 139/90 Blood Pressure Mean 102 84 106 Pulse Oximetry 100 100 99 Oxygen Delivery Method Sepsis Recent Fever Within 48 Hours Sepsis New/Unexplained Change in Mental Status Sepsis Action Taken by Nursing GENERAL: Mildly ill in appearance and pale. EYE EXAM: Normal conjunctiva. PERRL, no anisocoria and EOM's grossly intact w/o pain. OROPHARYNX: Dry mucus membranes. Grossly normal dentition. No gingival bleeding. NOSE: Left sided anterior bleeding, no septal hematoma. Right nares clear. NECK: Supple, no nuchal rigidity, no adenopathy, non-tender. No signs of meningismus. CHEST: Tunneled subclavian catheter right chest, clean dry and intact. LUNGS: Clear to auscultation. Normal chest wall mechanics. HEART: Tachycardic rate and regular rhythm, no MRG. ABDOMEN: Abdomen soft, non-tender, normo-active bowel sounds, no masses, no rebound or guarding. BACK: No CVA TTP. SKIN: Pale in appearance. No obvious petechiae or purpura noted. UPPER EXTREMITIES: Upper extremities are grossly normal. LOWER EXTREMITIES: No pitting edema. No calf pain. NEURO EXAM: A&O x3, cranial nerves II-XII grossly intact, normal speech, moves all 4 extremities on command w/o issue. Course Course 1933: Past medical records reviewed. The patient was evaluated in room B02. A complete history and physical exam was performed. 1936: The patient was placed on a surveillance system monitor. Patient appears to be in sinus tachycardia with a rate of 110. 0: I got the patient's consent for blood and platelets. 1952: I spoke with Dr. Roman, Hematology who said to give the patient platelets and blood irradiated. 2102: I spoke to Dr. Ivory, [facility]ist who accepts the patient for admission. 2108: I checked on the patient and updated him on plan to admit. The patient verbally expressed understanding and agreement of the treatment plan. The patient will be evaluated for further treatment. 2119: I removed the patient's nasal clamp and he did not have any additional bleeding. Administered Medications Discontinued Medications Sodium Chloride (Nss) 500 mls @ 999 mls/hr IV .Q31M ALEAH Stop: 10/03/19 20:15 Last Infusion: 10/03/19 20:33 Dose: 0 mls/hr Documented by: [id number] Admin: 10/03/19 19:50 Dose: 999 mls/hr Documented by: [id number] Magnesium Oxide (Mag-Ox) 800 mg PO NOW STA Stop: 10/03/19 21:04 Last Admin: 10/03/19 21:50 Dose: 800 mg Documented by: [id number] Oxymetazoline HCl (Afrin 0.05%) Confirm Administered Dose 150 sprays .ROUTE .STK-MED ONE Stop: 10/03/19 19:32 Last Admin: 10/03/19 20:01 Dose: Not Given Documented by: [id number] Oxymetazoline HCl (Afrin 0.05%) 1 sprays NA NOW ONE Stop: 10/03/19 19:34 Last Admin: 10/03/19 19:33 Dose: 1 sprays Documented by: [id number] Potassium Chloride (Klor-Con M20) 40 meq PO NOW STA Stop: 10/03/19 20:43 Last Admin: 10/03/19 21:50 Dose: 40 meq Documented by: [id number] Potassium Chloride (Klor-Con M20) 40 meq PO NOW STA Stop: 10/03/19 21:04 Last Admin: 10/03/19 21:59 Dose: Not Given Documented by: [id number] Critical Care Time Critical Care Time: Yes Total Critical Care Time: 52 I have personally spent 52 minutes of critical care time in the direct management of this patient. This includes bedside care, interpretation of diagnostic studies, and testing, discussion with consultants, patient, and family members, and other required patient management activities. This 52 minutes is in excess of all separately billable procedures. Medical Decision Making Differential Diagnosis Differential diagnosis includes but is not limited to leukemia, platelet dysfunction, thrombocytopenia, dehydration, coagulopathy, epistaxis Medical Records Attestation: I reviewed the patient's medical records. The patient's past medical records show his blood work from this morning including a platelet count of 1900, hemoglobin 6.8, and a white count of 160. Home Medications Current Medication List: was personally reviewed by me Laboratory Data Attestation: I reviewed the patient's lab results. Result diagrams: 10/03/19 19:41 10/03/19 19:41 Lab Results 10/03/19 10/03/19 10/03/19 Range/Units 11:13 19:41 19:41 WBC 0.06 L* (4.8-10.8) K/uL RBC 2.27 L (4.7-6.1) M/uL Hgb 6.9 L* (14.0-18.0) g/dL Hct 20.6 L* (42-52) % MCV 90.7 (80-100) fL MCH 30.4 (25-34) pg MCHC 33.5 (32-36) g/dL RDW Std Deviation 58.6 H (36.4-46.3) fL RDW Coeff of Tatyana 17.5 H (11.5-14.5) % Plt Count 17 L* (130-400) K/uL Immature Gran % (Auto) Cancelled Neut % (Auto) Cancelled Lymph % (Auto) Cancelled Pitt % (Auto) Cancelled Eos % (Auto) Cancelled Baso % (Auto) Cancelled Immature Gran # (Auto) Cancelled Neut # (Auto) Cancelled Lymph # (Auto) Cancelled Pitt # (Auto) Cancelled Eos # (Auto) Cancelled Baso # (Auto) Cancelled Neutrophils % (Manual) Cancelled Band Neutrophils % Cancelled Lymphocytes % (Manual) Cancelled Prolymphocyte % Cancelled Reactive Lymphs % (Man) Cancelled Monocytes % (Manual) Cancelled Eosinophils % (Manual) Cancelled Basophils % (Manual) Cancelled Metamyelocytes % (Man) Cancelled Myelocytes % (Man) Cancelled Promyelocytes % (Man) Cancelled Blast Cells % (Manual) Cancelled Plasma Cell % (Manual) Cancelled Other Cells % Cancelled Nucleated RBC % Cancelled Neutrophils # (Manual) Cancelled Band Neutrophils # Cancelled Total Absolute Neuts Cancelled Lymphocytes # (Manual) Cancelled Prolymphocyte # Cancelled Reactive Lymphs # Cancelled Total Abs Lymphocytes Cancelled Monocytes # (Manual) Cancelled Eosinophils # (Manual) Cancelled Basophils # (Manual) Cancelled Metamyelocytes # (Man) Cancelled Myelocytes # (Manual) Cancelled Promyelocytes # (Man) Cancelled Blast Cells # (Man) Cancelled Plasma Cell # (Manual) Cancelled Other Cells # Cancelled Nucleated RBCs # (Man) Cancelled Hypersegmented Neuts Cancelled Hyposegmented Neuts Cancelled Hypogranular Neuts Cancelled Large Granular Lymphs Cancelled # Lrg Granular Lymphs Cancelled Hairy Cells Cancelled Smudge Cells Cancelled Toxic Granulation Cancelled Toxic Vacuolation Cancelled Dohle Bodies Cancelled Margarita Rods Cancelled Platelet Estimate SIGNIFIC DECREASED (Normal) Hypogranular Platelets Cancelled Clumped Platelets Cancelled Giant Platelets Cancelled Platelet Satelliting Cancelled RBC Morphology Cancelled Polychromasia Cancelled Hypochromasia Cancelled Poikilocytosis Cancelled Basophilic Stippling Cancelled Anisocytosis Cancelled Microcytosis Cancelled Macrocytosis Cancelled Spherocytes Cancelled Pappenheimer Bodies Cancelled Sickle Cells Cancelled Target Cells Cancelled Tear Drop Cells Cancelled Ovalocytes Cancelled Stomatocytes Cancelled Wong-Whiteland Bodies Cancelled Echinocytes Cancelled Acanthocytes (Spur) Cancelled Rouleaux Cancelled RBC Agglutinates Cancelled Schistocytes Cancelled RBC Morph Comment Cancelled Sezary Cell Cancelled PT (9.0-12.0) Seconds INR (0.9-1.1) APTT (21.0-31.0) Seconds PTT Ratio Sodium (136-145) mmol/L Potassium (3.5-5.1) mmol/L Chloride (98-107) mmol/L Carbon Dioxide (21-32) mmol/L Anion Gap (3-11) BUN (7-18) mg/dl Creatinine (0.6-1.4) mg/dl Est Cr Clr Drug Dosing Est GFR ( Amer) Est GFR (Non-Af Amer) BUN/Creatinine Ratio (10-20) Glucose (70-99) mg/dl Calcium (8.5-10.1) mg/dl Magnesium (1.8-2.4) mg/dl Total Bilirubin (0.2-1) mg/dl AST (15-37) U/L ALT (12-78) U/L Alkaline Phosphatase (45-117) U/L Total Protein (6.4-8.2) gm/dl Albumin (3.4-5.0) gm/dl Globulin (2.5-4.0) gm/dl Albumin/Globulin Ratio (0.9-2) Procalcitonin (0-0.5) ng/ml TSH (0.300-4.500) uIu/ml Blood Type A Positive Blood Type Recheck A Positive Antibody Screen NEGATIVE Crossmatch See Detail 10/03/19 10/03/19 10/03/19 Range/Units 19:41 19:41 19:41 WBC (4.8-10.8) K/uL RBC (4.7-6.1) M/uL Hgb (14.0-18.0) g/dL Hct (42-52) % MCV (80-100) fL MCH (25-34) pg MCHC (32-36) g/dL RDW Std Deviation (36.4-46.3) fL RDW Coeff of Tatyana (11.5-14.5) % Plt Count (130-400) K/uL Immature Gran % (Auto) Neut % (Auto) Lymph % (Auto) Pitt % (Auto) Eos % (Auto) Baso % (Auto) Immature Gran # (Auto) Neut # (Auto) Lymph # (Auto) Pitt # (Auto) Eos # (Auto) Baso # (Auto) Neutrophils % (Manual) Band Neutrophils % Lymphocytes % (Manual) Prolymphocyte % Reactive Lymphs % (Man) Monocytes % (Manual) Eosinophils % (Manual) Basophils % (Manual) Metamyelocytes % (Man) Myelocytes % (Man) Promyelocytes % (Man) Blast Cells % (Manual) Plasma Cell % (Manual) Other Cells % Nucleated RBC % Neutrophils # (Manual) Band Neutrophils # Total Absolute Neuts Lymphocytes # (Manual) Prolymphocyte # Reactive Lymphs # Total Abs Lymphocytes Monocytes # (Manual) Eosinophils # (Manual) Basophils # (Manual) Metamyelocytes # (Man) Myelocytes # (Manual) Promyelocytes # (Man) Blast Cells # (Man) Plasma Cell # (Manual) Other Cells # Nucleated RBCs # (Man) Hypersegmented Neuts Hyposegmented Neuts Hypogranular Neuts Large Granular Lymphs # Lrg Granular Lymphs Hairy Cells Smudge Cells Toxic Granulation Toxic Vacuolation Dohle Bodies Margarita Rods Platelet Estimate (Normal) Hypogranular Platelets Clumped Platelets Giant Platelets Platelet Satelliting RBC Morphology Polychromasia Hypochromasia Poikilocytosis Basophilic Stippling Anisocytosis Microcytosis Macrocytosis Spherocytes Pappenheimer Bodies Sickle Cells Target Cells Tear Drop Cells Ovalocytes Stomatocytes Wong-Whiteland Bodies Echinocytes Acanthocytes (Spur) Rouleaux RBC Agglutinates Schistocytes RBC Morph Comment Sezary Cell PT 10.3 (9.0-12.0) Seconds INR 1.0 (0.9-1.1) APTT 26.7 (21.0-31.0) Seconds PTT Ratio 1.0 Sodium 140 (136-145) mmol/L Potassium 3.3 L (3.5-5.1) mmol/L Chloride 107 (98-107) mmol/L Carbon Dioxide 26 (21-32) mmol/L Anion Gap 8.0 (3-11) BUN 19 H (7-18) mg/dl Creatinine 0.75 (0.6-1.4) mg/dl Est Cr Clr Drug Dosing Not Reportable Est GFR ( Amer) 140.7 Est GFR (Non-Af Amer) 121.4 BUN/Creatinine Ratio 24.9 H (10-20) Glucose 143 H (70-99) mg/dl Calcium 8.8 (8.5-10.1) mg/dl Magnesium 1.5 L (1.8-2.4) mg/dl Total Bilirubin 1.2 H (0.2-1) mg/dl AST 26 (15-37) U/L ALT 263 H (12-78) U/L Alkaline Phosphatase 121 H (45-117) U/L Total Protein 6.4 (6.4-8.2) gm/dl Albumin 2.7 L (3.4-5.0) gm/dl Globulin 3.7 (2.5-4.0) gm/dl Albumin/Globulin Ratio 0.7 L (0.9-2) Procalcitonin (0-0.5) ng/ml TSH 4.470 (0.300-4.500) uIu/ml Blood Type Cancelled Blood Type Recheck Antibody Screen Cancelled Crossmatch See Detail 10/03/19 10/03/19 Range/Units 19:41 19:47 WBC (4.8-10.8) K/uL RBC (4.7-6.1) M/uL Hgb (14.0-18.0) g/dL Hct (42-52) % MCV (80-100) fL MCH (25-34) pg MCHC (32-36) g/dL RDW Std Deviation (36.4-46.3) fL RDW Coeff of Tatyana (11.5-14.5) % Plt Count (130-400) K/uL Immature Gran % (Auto) Neut % (Auto) Lymph % (Auto) Pitt % (Auto) Eos % (Auto) Baso % (Auto) Immature Gran # (Auto) Neut # (Auto) Lymph # (Auto) Pitt # (Auto) Eos # (Auto) Baso # (Auto) Neutrophils % (Manual) Band Neutrophils % Lymphocytes % (Manual) Prolymphocyte % Reactive Lymphs % (Man) Monocytes % (Manual) Eosinophils % (Manual) Basophils % (Manual) Metamyelocytes % (Man) Myelocytes % (Man) Promyelocytes % (Man) Blast Cells % (Manual) Plasma Cell % (Manual) Other Cells % Nucleated RBC % Neutrophils # (Manual) Band Neutrophils # Total Absolute Neuts Lymphocytes # (Manual) Prolymphocyte # Reactive Lymphs # Total Abs Lymphocytes Monocytes # (Manual) Eosinophils # (Manual) Basophils # (Manual) Metamyelocytes # (Man) Myelocytes # (Manual) Promyelocytes # (Man) Blast Cells # (Man) Plasma Cell # (Manual) Other Cells # Nucleated RBCs # (Man) Hypersegmented Neuts Hyposegmented Neuts Hypogranular Neuts Large Granular Lymphs # Lrg Granular Lymphs Hairy Cells Smudge Cells Toxic Granulation Toxic Vacuolation Dohle Bodies Margarita Rods Platelet Estimate (Normal) Hypogranular Platelets Clumped Platelets Giant Platelets Platelet Satelliting RBC Morphology Polychromasia Hypochromasia Poikilocytosis Basophilic Stippling Anisocytosis Microcytosis Macrocytosis Spherocytes Pappenheimer Bodies Sickle Cells Target Cells Tear Drop Cells Ovalocytes Stomatocytes Wong-Whiteland Bodies Echinocytes Acanthocytes (Spur) Rouleaux RBC Agglutinates Schistocytes RBC Morph Comment Sezary Cell PT (9.0-12.0) Seconds INR (0.9-1.1) APTT (21.0-31.0) Seconds PTT Ratio Sodium (136-145) mmol/L Potassium (3.5-5.1) mmol/L Chloride (98-107) mmol/L Carbon Dioxide (21-32) mmol/L Anion Gap (3-11) BUN (7-18) mg/dl Creatinine (0.6-1.4) mg/dl Est Cr Clr Drug Dosing Est GFR ( Amer) Est GFR (Non-Af Amer) BUN/Creatinine Ratio (10-20) Glucose (70-99) mg/dl Calcium (8.5-10.1) mg/dl Magnesium Cancelled (1.8-2.4) mg/dl Total Bilirubin (0.2-1) mg/dl AST (15-37) U/L ALT (12-78) U/L Alkaline Phosphatase (45-117) U/L Total Protein (6.4-8.2) gm/dl Albumin (3.4-5.0) gm/dl Globulin (2.5-4.0) gm/dl Albumin/Globulin Ratio (0.9-2) Procalcitonin 0.24 (0-0.5) ng/ml TSH Cancelled (0.300-4.500) uIu/ml Blood Type Blood Type Recheck Antibody Screen Crossmatch Imaging Data Radiologist's Impression: Radiology results as stated below per my review and the radiologist's interpretation: XR chest 1V portable CLINICAL HISTORY: sob dyspnea COMPARISON STUDY: 07/24/2019 FINDINGS: Central catheter in superior vena cava. The lungs are clear. Diaphragms are smooth. IMPRESSION: No acute process. ACT 112: Negative or not required by law. The above report was generated using voice recognition software. It may contain grammatical, syntax or spelling errors. Electronically signed by: Edward Medeiros M.D. 10/03/2019 9:27 PM ECG Data Attestation: I personally reviewed and interpreted this ECG as follows: Indication: + tachycardia Rate (beats per minute): 121 Rhythm: + sinus tachycardia ECG [place]: + Normal ECG Findings: + Other (normal intervals, no ST changes); no PACs and no PVCs MDM Narrative The patient is a 33 year old male with a history of leukemia chemotherapy treatment (finished 4 days ago), and epistaxis who presents to the Emergency Room with complaints of epistaxis. Patient was seen and evaluated the bedside. The patient does have a prior history of leukemia status post autologous BMT. The patient has seen Dr. Oscar dover in the past and was noted to have some decreased white count, anemia, and thrombocytopenia. The patient has had some more persistent epistaxis today which is why he returned. The patient does have a tunneled subclavian catheter in the right chest. It appears to be clean dry and intact. The patient has complained of feeling more lightheaded and somewhat short of breath. I believe this is likely related to his anemia. No gingival bleeding or petechiae or purpura. Patient has not altered and denies any recent head trauma. Patient did have repeat blood work and was consented for blood. I did speak with the patient's primary oncologist who agreed that the patient would benefit from platelets and blood. These were ordered. The patient did receive them. Upon reassessment after applying Afrin and nasal clamp patient's epistaxis resolved. The primary cause is likely the environment of dry air and associated thrombocytopenia. I did speak the on-call hospitalist agreed to further evaluate treat the patient. Patient was admitted to the medicine service. Impression & Plan Thrombocytopenia, Epistaxis, Leukemia, Hypomagnesemia, Hypokalemia Discharge Plan Visit Data Chief Complaint: Nose Bleed (Minor) Stated Complaint: NOSE BLEED ED Provider: Reese Quintanilla Discharge Problem: Thrombocytopenia, Epistaxis, Leukemia, Hypomagnesemia, Hypokalemia Patient Disposition: Being Evaluated by Hospitalist Forms Stand Alone Forms: My [facility] Prescriptions Prescriptions: No Action nystatin 100,000 unit/mL suspension 0 ml PO DAILY PRN (Reason: Mouth Soreness) RF: 0 prochlorperazine maleate 10 mg tablet 10 mg PO UD PRN (Reason: Nausea) RF: 0 ciprofloxacin HCl 500 mg tablet 500 mg PO BID RF: 0 lansoprazole 30 mg capsule,delayed release(DR/EC) 0 mg PO QAM RF: 0 gabapentin 300 mg capsule 300 mg PO TID RF: 0 allopurinol 300 mg tablet 300 mg PO HS RF: 0 acyclovir 200 mg capsule 200 mg PO QAM RF: 0 oxycodone 5 mg tablet 5 mg PO .Q4-6H RF: 0 insulin lispro [Humalog KwikPen Insulin] 100 unit/mL insulin pen 0 unit SUBCUT UD RF: 0 Humulin N NPH Insulin KwikPen 100 unit/mL (3 mL) insulin pen 0 unit SUBCUT UD RF: 0 levocarnitine (with sugar) 100 mg/mL solution 0 mg PO Q8H RF: 0 Referrals Referrals: Ginger Francois PA-C [Primary Care Provider] - Discharge Problem: Leukemia Qualifiers: Leukemia type: unspecified Leukemia Active/Remission status: relapsed Qualified Code(s): C95.92 - Leukemia, unspecified, in relapse The scribe's documentation has been prepared under my direction and personally reviewed by me in its entirety. I confirm that the note above accurately reflects all work, treatment, procedures, and medical decision making performed by me.
[2019-10-04] MEDS ORDERED: SODIUM CHLORIDE 0.9% 250 ML IV PRN (00:47)
[2019-10-04] MEDS ORDERED: OXYCODONE IR HOME PACK PO SCH (00:47)
[2019-10-04] MEDS ORDERED: LEVOCARNITINE PO SCH (00:47)
[2019-10-04] MEDS ORDERED: [UNRECOGNIZED DRUG - OTHER] PO SCH (00:47)
[2019-10-04] MEDS ORDERED: NYSTATIN SUSP 500,000 U/5 ML UDC PO PRN (00:47)
[2019-10-04] MEDS ORDERED: LORazepam 0.5 MG/1 ML VIAL IV PRN (00:47)
[2019-10-04] MEDS ORDERED: LACTATED RINGER'S 1,000 ML IV ONE ×2 (00:47→20:10)
[2019-10-04] MEDS ORDERED: PROMETHAZINE HCL 12.5 MG in SODIUM CHLORIDE 0.9% 50 ML IV PRN (00:47)
[2019-10-04] MEDS ORDERED: ACETAMINOPHEN 325 MG TAB PO PRN ×2 (00:47→04:55)
[2019-10-04] MEDS: MAGNESIUM SULFATE / D5W 1 GM/100 ML BAG IV SCH ×4 (02:00→23:18)
[2019-10-04] MEDS ORDERED: OXYCODONE HCL IR 5 MG TAB (IMMEDIATE RELEASE) ONE (04:55)
[2019-10-04 07:01] LABS: Estimated Average Glucose 160 mg/dl; Hemoglobin A1C 7.2 % (4.5-5.6)
[2019-10-04 07:27] LABS: Hematocrit (blood only) 21.5 % (42-52); Hemoglobin 7.5 g/dL (14.0-18.0); Mean Corpuscular Hemoglobin 31.1 pg (25-34); Mean Corpuscular Hgb Conc 34.9 g/dL (32-36); Mean Corpuscular Volume 89.2 fL (80-100); Mean Platelet Volume 8.1 fL (7.4-10.4); Platelet Count 33 K/uL (130-400); RDW Coefficient of Variation 16.6 % (11.5-14.5); RDW Standard Deviation 54.3 fL (36.4-46.3); Red Blood Count 2.41 M/uL (4.7-6.1); White Blood Count 0.07 K/uL (4.8-10.8)
[2019-10-04 07:58] LABS: BUN Creatinine Ratio 22.5 (10-20); Blood Urea Nitrogen 13 mg/dl (7-18); Calcium 8.7 mg/dl (8.5-10.1); Carbon Dioxide 28 mmol/L (21-32); Chloride 107 mmol/L (98-107); Creatinine Clr Calc Pharmacy 245.6 ml/min; Est GFR (African American) > 150.0; Glucose 128 mg/dl (70-99); Magnesium 2.1 mg/dl (1.8-2.4); Potassium 3.6 mmol/L (3.5-5.1); Sodium 140 mmol/L (136-145)
[2019-10-04] MEDS: OXYCODONE HCL IR 5 MG TAB (IMMEDIATE RELEASE) PO PRN ×3 (09:27→20:12)
[2019-10-04] MEDS: GABAPENTIN 300 MG CAP PO SCH ×3 (09:29→20:23)
[2019-10-04] MEDS: CIPROFLOXACIN 500 MG TAB PO SCH ×2 (09:29→20:23)
[2019-10-04] MEDS: ACYCLOVIR 200 MG CAP PO SCH (09:29)
--- NOTE | 2019-10-04 15:15 | Hospitalist Progress Note ---
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 Normal free T4 Started on levothyroxine 25 mcg daily H/O PE/DVT Currently not on anticoagulation Previously was on Coumadin Chronic migraine Stable monitor Prediabetes ? 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 as per records Continue Gabapentin Hypokalemia Replete electrolytes as needed DVT Px: SCDs RE Epistaxis, anemia, thrombocytopenia Code Status Full code Disposition Expect to discharge home when stable Subjective Patient is seen and examined at bedside Reports lower back pain No recurrence of Epistaxis Denies any other bleeding issues Discussed with today Also denies any chest pain, SOB, dizziness, nausea, abd pain Review of Systems Review of Systems: All systems reviewed & are unremarkable except as noted in HPI & below Physical Exam Physical Exam: Physical Exam: Vitals signs as noted above General Appearance:Obese, no apparent distress Head: normocephalic, Atraumatic Eyes: normal inspection, EOMI Neck: supple, Trachea midline Respiratory/Chest: Normal breath sounds, CTA Cardiovascular: S1, S2, No murmur Abdomen/GI:Soft, Non tender, Bowel sounds present Back: Lower shake backboard notcher Extremities/Musculoskelatal:normal inspection, no edema Neurologic/Psych:AAOX3, grossly no focal neurological deficits Skin: normal color, warm, +Petechial rash on B/L LE Results & Data Vital Signs (Past 12 Hours) Vital Signs Temp Pulse Pulse Resp BP BP Pulse Ox 10/04/19 11:49 36.7 C 110 H 18 126/84 99 10/04/19 07:37 37 C 104 H 20 131/84 97 10/04/19 05:01 36.7 C 109 H 18 143/76 H 96 10/04/19 03:54 37.2 C 105 H 18 124/85 95 Laboratory Results Short CBC 10/03/19 10/04/19 Range/Units 19:41 07:10 WBC 0.06 L* 0.07 L* (4.8-10.8) K/uL Hgb 6.9 L* 7.5 L (14.0-18.0) g/dL Hct 20.6 L* 21.5 L (42-52) % Plt Count 17 L* 33 L D (130-400) K/uL BMP 10/03/19 10/04/19 19:41 07:10 Sodium 140 140 Potassium 3.3 L 3.6 Chloride 107 107 Carbon Dioxide 26 28 BUN 19 H 13 Creatinine 0.75 0.59 L Glucose 143 H 128 H Calcium 8.8 8.7 Liver Function 10/03/19 Range/Units 19:41 Total Bilirubin 1.2 H (0.2-1) mg/dl AST 26 (15-37) U/L ALT 263 H (12-78) U/L Alkaline Phosphatase 121 H (45-117) U/L Albumin 2.7 L (3.4-5.0) gm/dl
--- NOTE | 2019-10-04 16:51 | Oncology Consultation ---
Date of Consultation October 04, 2019 Assessment & Plan (1) Thrombocytopenia: Mr. 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 He is right around the benjamin of his counts, so we are watching them twice a week. He responded appropriately to transfusion. We would like to minimize additional transfusions, so I would use the following parameters: Hgb <7, Plts <20K. He should ALWAYS receive irradiated blood products. He is not febrile right now and we should not give any growth factor at this time. If his counts remain stable tomorrow, he can likely go home. He is scheduled for another CBC on Monday in my office. His transaminases are elevated, but they are actually down from his last CMP at [facility] on 09/30. Present on Admission?: Yes History of Present Illness Reason for Consultation: Pancytopenia Acute lymphoblastic leukemia Attending Physician: Clay Wiggins MD History of Present Illness Mr. Bello is a 33 year old man with a history of ALL who is in remission following his first cycle of induction with Hyper-CVAD. He also had an acute hepatitis related to peg-asparaginase as part of his initial treatment. He lives in this area but is treated at [facility]. He presented to me earlier this week to establish care for supportive therapy and blood products. He had a scheduled CBC and CMP yesterday that revealed platelets of 19 and hemoglobin in the 6s. I arranged for transfusion that was scheduled this morning. However, overnight he developed persistent epistaxis and so came to the ER. He was given irradiated platelets and RBCs and has responded appropriately. His bleeding stopped and he has no bleeding elsewhere. He denies any infectious symptoms, fevers, mouth sores, shortness of breath, chest pain, abdominal pain, or bowel or bladder changes. He denies any rashes or petechiae. Allergies Allergy/AdvReac Type Severity Reaction Status Date / Time pegaspargase AdvReac Severe Liver Unverified 10/03/19 20:10 Issues Home Medications Home Medications Medication Instructions Recorded Confirmed Type acyclovir 200 mg PO QAM 10/03/19 10/03/19 History allopurinol 300 mg PO HS 10/03/19 10/03/19 History ciprofloxacin HCl 500 mg PO BID 10/03/19 10/03/19 History gabapentin 300 mg PO TID 10/03/19 10/03/19 History insulin NPH isoph U-100 human 0 unit SUBCUT UD 10/03/19 10/03/19 History [Humulin N NPH Insulin KwikPen] insulin lispro [Humalog KwikPen 0 unit SUBCUT UD 10/03/19 10/03/19 History Insulin] lansoprazole 0 mg PO QAM 10/03/19 10/03/19 History levocarnitine (with sugar) 0 mg PO Q8H 10/03/19 10/03/19 History nystatin 0 ml PO DAILY PRN 10/03/19 10/03/19 History oxycodone 5 mg PO .Q4-6H 10/03/19 10/03/19 History prochlorperazine maleate 10 mg PO UD PRN 10/03/19 10/03/19 History Patient History Medical History DVT (deep venous thrombosis) Epistaxis Leukemia Neuropathy Pulmonary embolism 2011 Testicular cancer Surgical History Bone marrow transplant status 2014 Social History Preferred Language: Mohawk Communication Ability: Effective 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 Beliefs That Will Affect Care: None Current Living Situation: Spouse and Family Feels Safe at Home: Yes Safety Concerns: Feels Safe At This Time Smoking Status: Never smoker Tobacco Type: smokeless tobacco ; Second Hand Exposure: No ; Hx Alcohol Use: Yes Hx Substance Use: No Review of Systems Review of Systems: All systems reviewed & are unremarkable except as noted in HPI & below Physical Exam Constitutional: healthy appearing and comfortable; no acute distress ENMT: external ear and nose normal, oropharynx normal Respiratory: normal respiratory effort, lungs clear to auscultation Cardiovascular: RRR, no murmur, no edema Gastrointestinal (Abdomen): Inspection/Auscultation: normal bowel sounds; abdomen not distended Percussion/Palpation: abdomen soft; abdomen nontender Skin: no rashes, warm and dry Psychiatric: A+Ox3, euthymic affect Results & Data Vital Signs (Past 12 Hours) Vital Signs Temp Pulse Pulse Resp BP BP Pulse Ox 10/04/19 15:53 37.2 C 100 H 16 127/87 100 10/04/19 15:11 98 H 10/04/19 11:49 36.7 C 110 H 18 126/84 99 10/04/19 07:37 37 C 104 H 20 131/84 97 10/04/19 05:01 36.7 C 109 H 18 143/76 H 96 Laboratory Results Abnormal lab results 10/03/19 10/03/19 10/03/19 Range/Units 11:13 19:41 19:41 WBC 0.06 L* (4.8-10.8) K/uL RBC 2.27 L (4.7-6.1) M/uL Hgb 6.9 L* (14.0-18.0) g/dL Hct 20.6 L* (42-52) % RDW Std Deviation 58.6 H (36.4-46.3) fL RDW Coeff of Tatyana 17.5 H (11.5-14.5) % Plt Count 17 L* (130-400) K/uL Potassium 3.3 L (3.5-5.1) mmol/L BUN 19 H (7-18) mg/dl Creatinine (0.6-1.4) mg/dl BUN/Creatinine Ratio 24.9 H (10-20) Glucose 143 H (70-99) mg/dl Hemoglobin A1c (4.5-5.6) % Magnesium 1.5 L (1.8-2.4) mg/dl Total Bilirubin 1.2 H (0.2-1) mg/dl ALT 263 H (12-78) U/L Alkaline Phosphatase 121 H (45-117) U/L Albumin 2.7 L (3.4-5.0) gm/dl Albumin/Globulin Ratio 0.7 L (0.9-2) Crossmatch See Detail 10/03/19 10/03/19 10/04/19 Range/Units 19:41 19:41 07:10 WBC (4.8-10.8) K/uL RBC (4.7-6.1) M/uL Hgb (14.0-18.0) g/dL Hct (42-52) % RDW Std Deviation (36.4-46.3) fL RDW Coeff of Tatyana (11.5-14.5) % Plt Count (130-400) K/uL Potassium (3.5-5.1) mmol/L BUN (7-18) mg/dl Creatinine 0.59 L (0.6-1.4) mg/dl BUN/Creatinine Ratio 22.5 H (10-20) Glucose 128 H (70-99) mg/dl Hemoglobin A1c 7.2 H (4.5-5.6) % Magnesium (1.8-2.4) mg/dl Total Bilirubin (0.2-1) mg/dl ALT (12-78) U/L Alkaline Phosphatase (45-117) U/L Albumin (3.4-5.0) gm/dl Albumin/Globulin Ratio (0.9-2) Crossmatch See Detail 10/04/19 Range/Units 07:10 WBC 0.07 L* (4.8-10.8) K/uL RBC 2.41 L (4.7-6.1) M/uL Hgb 7.5 L (14.0-18.0) g/dL Hct 21.5 L (42-52) % RDW Std Deviation 54.3 H (36.4-46.3) fL RDW Coeff of Tatyana 16.6 H (11.5-14.5) % Plt Count 33 L D (130-400) K/uL Potassium (3.5-5.1) mmol/L BUN (7-18) mg/dl Creatinine (0.6-1.4) mg/dl BUN/Creatinine Ratio (10-20) Glucose (70-99) mg/dl Hemoglobin A1c (4.5-5.6) % Magnesium (1.8-2.4) mg/dl Total Bilirubin (0.2-1) mg/dl ALT (12-78) U/L Alkaline Phosphatase (45-117) U/L Albumin (3.4-5.0) gm/dl Albumin/Globulin Ratio (0.9-2) Crossmatch
--- NOTE | 2019-10-04 20:34 | Communication Note ---
Date of Service: October 04, 2019 Patient noted to be febrile and tachycardic as per RN. Patient complaining of right jaw swelling. ? Tooth ache Full examination of oral cavity precluded by limited mouth opening. No chest pain, no S OB. CT soft tissue neck: Soft tissue swelling adjacent to the buccal surface of the body of the right hemimandible. No peripheral enhancing fluid collections to suggest an abscess. This is likely due to the extensive periodontal disease as described above. AP Sepsis secondary to odontogenic infection Immunocompromised patient Cultures, check lactic acid IV Unasyn Soft diet for now Might require oral maxillofacial surgery consultation if jaw swelling progresses. Will relay to AM provider.
[2019-10-04] MEDS ORDERED: allopurinoL 300 MG TAB PO SCH (21:00)
[2019-10-04] MEDS ORDERED: IOVERSOL 100ml IV PRN (21:04)
[2019-10-04 21:08] LABS: Albumin Level 2.6 gm/dl (3.4-5.0); BUN Creatinine Ratio 16.9 (10-20); Calcium 8.8 mg/dl (8.5-10.1); Creatinine Clr Calc Pharmacy 216.3 ml/min; Est GFR (African American) 147.4; Est GFR (Non-African American) 127.1; Magnesium 1.5 mg/dl (1.8-2.4); Potassium 3.7 mmol/L (3.5-5.1)
[2019-10-04 21:11] LABS: Albumin Globulin Ratio 0.8 (0.9-2); Bilirubin,Total 1.4 mg/dl (0.2-1); Globulin 3.2 gm/dl (2.5-4.0); Total Protein 5.8 gm/dl (6.4-8.2)
--- NOTE | 2019-10-04 21:25 | CT Scan Report ---
CT soft tissue neck w con HISTORY: R jaw swelling TECHNIQUE: Multiaxial CT images of the neck were performed along the use of intravenous contrast. COMPARISON STUDY: None. FINDINGS: Soft tissue swelling primarily along the buccal surface of the body of the right hemimandib le. No peripheral enhancing fluid collections to suggest an abscess. There is mild right submandibula r lymphadenopathy adjacent fat stranding. This may be reactive. Multiple dental caries are noted thro ughout the majority of the teeth. Dominant vianca at ADA 2 results in near complete destruction of the crown. This measures 11 mm. This could account for the adjacent inflammatory change. There is associ ated periapical lucency at ADA 2 which measures 3 mm. Small retention cyst within the maxillary sinus es. No fluid levels within the paranasal sinuses. The mastoid air cells are clear. Partially visualiz ed right jugular catheter which is seen within the SVC. The lungs are clear. The visualized brain par enchyma and orbits are unremarkable. The major mucosal airways services are intact. The epiglottis an d prevertebral soft tissues are normal in thickness. The thyroid gland enhances normally. No cervical lymphadenopathy. The parotid and submandibular glands are symmetric. IMPRESSION: Soft tissue swelling adjacent to the buccal surface of the body of the right hemimandible. No periphe ral enhancing fluid collections to suggest an abscess. This is likely due to the extensive periodonta l disease as described above. ACT 112: Negative or not required by law. Electronically signed by: Nixon Can M.D. 10/04/2019 9:24 PM
[2019-10-04 21:29] LABS: Mean Corpuscular Hgb Conc 34.4 g/dL (32-36); Mean Platelet Volume 8.2 fL (7.4-10.4); Platelet Count 24 K/uL (130-400)
[2019-10-04 21:30] LABS: Hematocrit (blood only) 21.5 % (42-52); Hemoglobin 7.4 g/dL (14.0-18.0); Mean Corpuscular Hemoglobin 30.5 pg (25-34); Mean Corpuscular Volume 88.5 fL (80-100); RDW Coefficient of Variation 16.2 % (11.5-14.5); Red Blood Count 2.43 M/uL (4.7-6.1); White Blood Count 0.07 K/uL (4.8-10.8)
[2019-10-04] MEDS ORDERED: POTASSIUM CHLORIDE 20 MEQ TABCR PO STA (21:36)
[2019-10-04] MEDS ORDERED: AMPICILLIN/SULBACTAM SOD 3,000 MG in 0.9 % SODIUM CHLORIDE 100 ML IV STA (21:39)
[2019-10-04] MEDS ORDERED: AMPICILLIN/SULBACTAM CONSULT ACTIVE PRN (21:50)
[2019-10-04] MEDS ORDERED: SODIUM CHLORIDE 0.9% 1000ML 1,000 ML IV ONE (22:20)
[2019-10-04 22:45] LABS: Appearance Urine Clear (Clear); Bacteria Urine Automated Negative (Negative); Bilirubin Urine Negative (Negative); Blood Urine Negative (Negative); Color Urine Yellow; Glucose Urine UA Trace (Negative); Ketones Urine Negative (Negative); Leukocyte Esterase Urine Negative (Negative); Nitrite Urine Negative (Negative); Protein Urine Trace (Negative); RBC Urine Automated 0-4 /hpf (0-4); Urobilinogen Urine Negative (Negative); pH Urine 7.5 (4.5-7.5)
[2019-10-04 22:47] LABS: Sulfosalicylic Acid Urine Positive (Negative)
[2019-10-04] MEDS ORDERED: NORMOSOL-R 1,000 ML IV SCH (23:20)
[2019-10-05] MEDS ORDERED: NORMOSOL-R 1,000 ML IV ONE (01:19)
[2019-10-05] MEDS: OXYCODONE HCL IR 5 MG TAB (IMMEDIATE RELEASE) PO PRN ×3 (04:06→13:00)
[2019-10-05] MEDS: AMPICILLIN/SULBACTAM SOD 3,000 MG in 0.9 % SODIUM CHLORIDE 100 ML IV SCH ×2 (04:07→09:08)
[2019-10-05] MEDS ORDERED: METOPROLOL TARTRATE 1 MG/ML VIAL IV STA ×2 (04:32→16:38)
[2019-10-05] MEDS ORDERED: cloNIDine HCL 0.1 MG TAB PO ONE (06:33)
[2019-10-05 06:47] LABS: Hematocrit (blood only) 22.4 % (42-52); Hemoglobin 7.6 g/dL (14.0-18.0); Mean Corpuscular Hemoglobin 30.6 pg (25-34); Mean Corpuscular Hgb Conc 33.9 g/dL (32-36); Mean Corpuscular Volume 90.3 fL (80-100); Mean Platelet Volume 8.8 fL (7.4-10.4); Platelet Count 25 K/uL (130-400); RDW Coefficient of Variation 16.1 % (11.5-14.5); Red Blood Count 2.48 M/uL (4.7-6.1); White Blood Count 0.05 K/uL (4.8-10.8)
[2019-10-05 07:08] LABS: BUN Creatinine Ratio 13.1 (10-20); Calcium 8.8 mg/dl (8.5-10.1); Creatinine Clr Calc Pharmacy 208.8 ml/min; Est GFR (African American) 145.6; Est GFR (Non-African American) 125.6; Potassium 3.8 mmol/L (3.5-5.1)
--- NOTE | 2019-10-05 07:30 | Electrocardiogram Report ---
Test Reason : Blood Pressure : / mmHG Vent. Rate : 121 BPM Atrial Rate : 121 BPM P-R Int : 118 ms QRS Dur : 102 ms QT Int : 310 ms P-R-T Axes : 047 013 018 degrees QTc Int : 440 ms Sinus tachycardia Otherwise normal ECG When compared with ECG of 24-JUL-2019 07:46, No significant change was found Confirmed by Anthony Dewitt ([id number]) on 10/05/2019 7:29:28 AM Referred By: REFERRED SELF Confirmed By:Quintin Dewitt
[2019-10-05] MEDS: ACYCLOVIR 200 MG CAP PO SCH (08:57)
[2019-10-05] MEDS: CIPROFLOXACIN 500 MG TAB PO SCH (08:57)
[2019-10-05] MEDS: GABAPENTIN 300 MG CAP PO SCH ×2 (08:57→13:00)
[2019-10-05] MEDS: MoRPHine SULFATE 4 MG/ML 1 ML CARP\\VIAL IV PRN ×2 (09:47→16:40)
--- NOTE | 2019-10-05 12:56 | Electrocardiogram Report ---
Test Reason : Blood Pressure : / mmHG Vent. Rate : 119 BPM Atrial Rate : 119 BPM P-R Int : 142 ms QRS Dur : 104 ms QT Int : 318 ms P-R-T Axes : 054 019 032 degrees QTc Int : 447 ms Sinus tachycardia Incomplete right bundle branch block Borderline ECG When compared with ECG of 03-OCT-2019 19:47, Incomplete right bundle branch block is now Present Confirmed by Kun Medina ([id number]) on 10/05/2019 12:55:45 PM Referred By: REFERRED SELF Confirmed By:Kun Medina
[2019-10-05] MEDS ORDERED: NORMOSOL-R 1,000 ML IV SCH (13:00)
[2019-10-05] MEDS ORDERED: VANCOMYCIN HCL 2,500 MG in SODIUM CHLORIDE 0.9% 500 ML IV STA (13:16)
[2019-10-05] MEDS ORDERED: VANCOMYCIN CONSULT ACTIVE PRN (13:30)
[2019-10-05] MEDS ORDERED: IMIPENEM/CILASTATIN CONSULT ACTIVE PRN (13:56)
[2019-10-05] MEDS ORDERED: IMIPENEM/CILASTATIN SODIUM 500 MG in DEXTROSE 5% 100 ML IV SCH (14:15)
[2019-10-05] MEDS ORDERED: FAMOTIDINE 20 MG in SYRINGE 3 ML IV SCH (14:30)
--- NOTE | 2019-10-05 14:37 | Hospitalist Progress Note ---
Date of Service October 05, 2019 Assessment & Plan (1) Symptomatic anemia: Symptomatic Anemia Epistaxis Pancytopenia Secondary to chemotherapy S/P 2 units PRBCs and 1 unit Platelets Monitor CBC Keep Hb > 7 and Platelets > 20 K No transfusion for now unless recurrence of bleeding Appreciate Oncology Input Afrin PRN Periodontal disease Denies any recent dental work R/O Bacteremia CT Neck: Soft tissue swelling adjacent to the buccal surface of the body of the right hemimandible. No peripheral enhancing fluid collections to suggest an abscess. This is likely due to the extensive periodontal disease as described above. 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 Normal free T4 Started on levothyroxine 25 mcg daily H/O PE/DVT Currently not on anticoagulation Previously was on Coumadin Chronic migraine Stable monitor Prediabetes ? 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 Conway Accepting physician Dr.Salah Alvarado, Oncology Subjective Patient is seen and examined at bedside Febrile overnight, started on IV antibiotics Patient reports generalized itching, lip swelling, increased right facial swelling Denies any odynophagia, dyspnea, dysphagia CT neck suggestive of perioral dental disease Discussed with Dr. Conway-recommended transfer to [facility] No recurrence of Epistaxis Denies any other bleeding issues, chest pain, SOB, dizziness, nausea, abd pain Family at bedside Review of Systems Review of Systems: All systems reviewed & are unremarkable except as noted in HPI & below Physical Exam Physical Exam: Physical Exam: Vitals signs as noted above General Appearance:Obese, no apparent distress Head: normocephalic, Atraumatic Eyes: normal inspection, EOMI Neck: supple, Trachea midline Respiratory/Chest: Normal breath sounds, CTA Cardiovascular: S1, S2, No murmur Abdomen/GI:Soft, Non tender, Bowel sounds present 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 Extremities/Musculoskelatal:normal inspection, no edema Neurologic/Psych:AAOX3, grossly no focal neurological deficits Skin: normal color, warm, +Petechial rash on B/L LE Results & Data Vital Signs (Past 12 Hours) Vital Signs Temp Pulse Pulse Resp BP BP BP 10/05/19 12:45 37.4 C 133 H 18 124/83 10/05/19 08:00 36.7 C 116 H 18 103/58 L 10/05/19 07:26 109 H 10/05/19 04:47 125 H 149/85 H 10/05/19 04:40 37.2 C 126 H 16 127/73 Pulse Ox 10/05/19 12:45 98 10/05/19 08:00 95 10/05/19 07:26 10/05/19 04:47 10/05/19 04:40 100 Laboratory Results Short CBC 10/04/19 10/05/19 Range/Units 20:33 06:07 WBC 0.07 L* 0.05 L* (4.8-10.8) K/uL Hgb 7.4 L 7.6 L (14.0-18.0) g/dL Hct 21.5 L 22.4 L (42-52) % Plt Count 24 L* 25 L* (130-400) K/uL BMP 10/04/19 10/05/19 20:33 06:07 Sodium 137 136 Potassium 3.7 3.8 Chloride 104 103 Carbon Dioxide 26 28 BUN 11 9 Creatinine 0.67 0.69 Glucose 141 H 149 H Calcium 8.8 8.8 Liver Function 10/04/19 Range/Units 20:33 Total Bilirubin 1.4 H (0.2-1) mg/dl AST 20 (15-37) U/L ALT 164 H (12-78) U/L Alkaline Phosphatase 112 (45-117) U/L Albumin 2.6 L (3.4-5.0) gm/dl Urine 10/04/19 Range/Units 22:30 Urine Color Yellow Urine Appearance Clear (Clear) Urine pH 7.5 (4.5-7.5) Ur Specific [place] 1.040 H (1.000-1.030) Urine Protein Trace H (Negative) Urine Glucose (UA) Trace H (Negative)
[2019-10-05] MEDS ORDERED: IOVERSOL 100ml IV PRN (14:43)
--- NOTE | 2019-10-05 14:51 | Discharge Summary ---
Date of Service October 05, 2019 Admission HPI Per Admitting Provider History obtained from patient, family, and records. 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 Recent [facility] confinement last July 2019 for low back pain. Blood work showed possible acute leukemia. [place] [facility] [place] office machinery or equipment installer recommendation. Patient subsequently underwent chemotherapy. Developed hepatic failure/pancreatitis from PEG asparaginase. Patient prescribed levocarnitine and prednisone taper course for complication. Had to be on insulin temporarily for uncontrolled sugars following prednisone Rx. 2 [place] [facility] [place], last one being from September 26-2018. Patient went for routine outpatient blood work ordered by local office machinery or equipment installer this a.m. Outpatient hemoglobin noted to be 6.8, platelets noted to be 19. Arrangements made for outpatient irradiated PRBC and pheresed platelet t ransfusion made by office machinery or equipment installer at [facility] for tomorrow morning. This afternoon, patient noted epistaxis more on the left side, more protracted than prior episodes. No headache, some dizziness and lightheadedness as per patient. No chest pain. Shortness of breath on exertion. Cough following swallowed blood from epistaxis. Patient denies abdominal pain, black/bloody stools/ hematuria. At the ER, nasal clamp applied after decongestant administration. 1 unit for recent platelets transfused at the ER. Epistaxis currently resolved. 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, disabled Admission Exam Per Admitting Provider GENERAL: obese, no respiratory distress SKIN: Pallor, warm HEENT: Alopecia, pale palpebral conjunctivae, no ptosis, dried blood over philtrum, blood clots L nostril, dry buccal mucosa NECK : Supple, short neck, no tenderness CHEST : CTA, no chest wall tenderness HEART : tachycardic, no obvious murmurs ABDOMEN: Some distention, nontender BACK : Low back tenderness EXTREMITIES : No LE swelling/tenderness, no other conspicuous deformities noted NEUROLOGIC : Coherent, no facial asymmetry, gait and stance not assessed Principal Diagnosis Symptomatic anemia Periodontal disease/Facial Cellulitis Bacteremia Possible allergic reaction to Unasyn B-cell acute lymphocytic leukemia Discharge Data Allergies Allergy/AdvReac Type Severity Reaction Status Date / Time ampicillin [From Unasyn] Allergy Intermediate Rash and Verified 10/05/19 13:55 lip swelling sulbactam [From Unasyn] Allergy Rash Verified 10/05/19 13:55 pegaspargase AdvReac Severe Liver Unverified 10/03/19 20:10 Issues Consultations 10/03/19 20:29 ED Decision to Admit Stat 10/04/19 00:47 Consult Hematology Routine 10/05/19 14:23 Burn CD for patient Stat Procedures Performed CXR: No acute process. --CT Neck: Soft tissue swelling adjacent to the buccal surface of the body of the right hemimandible. No peripheral enhancing fluid collections to suggest an abscess. This is likely due to the extensive periodontal disease as described above. --Face CT:Stable to slightly increase in soft tissue edema adjacent to the right hemimandible as well as findings of the diffuse soft tissue cellulitis as described. No evidence for drainable abscess or collection. This study again suggests etiology relates to significant periodontal disease which has been described previously. Overall, the appearance suggests a slight progression of inflammatory change throughout the hector mandibular and soft tissue regions as compared to the prior study. Ordered Studies 10/04/19 20:33 CT soft tissue neck w con Urgent 10/05/19 13:52 CT facial bones w con Urgent Hospital Course (1) Symptomatic anemia: Symptomatic Anemia Epistaxis Pancytopenia Secondary to chemotherapy S/P 2 units PRBCs and 1 unit Platelets Monitor CBC Keep Hb > 7 and Platelets > 20 K No transfusion for now unless recurrence of bleeding Appreciate Oncology Input Afrin PRN Periodontal disease/Facial Cellulitis Denies any recent dental work R/O Bacteremia --CT Neck: Soft tissue swelling adjacent to the buccal surface of the body of the right hemimandible. No peripheral enhancing fluid collections to suggest an abscess. This is likely due to the extensive periodontal disease as described above. --Face CT:Stable to slightly increase in soft tissue edema adjacent to the right hemimandible as well as findings of the diffuse soft tissue cellulitis as described. No evidence for drainable abscess or collection. This study again suggests etiology relates to significant periodontal disease which has been described previously. Overall, the appearance suggests a slight progression of inflammatory change throughout the hector mandibular and soft tissue regions as compared to the prior study. Blood Cultures:10/03: Gram-positive cocci in clusters Started on IV Unasyn overnight--- developed generalized itching, lip swelling Will discontinue Unasyn for possible allergic reaction Change IV antibiotics to IV vancomycin,Imipenem Continue IV fluids Added Benadryl, Pepcid Hold off on starting any IV steroids Given complex history, immunocompromise state, need for further treatment for ALL--patient will be transferred to [facility] for further evaluation and management Sinus Tachycardia --Chronic Likely due to back pain, anemia monitor [place] chromosome like B-cell ALL Hepatotoxicity/Pancreatitis due to Pegasparagase S/P plasma Exchange Ongoing Chemotherapy H/O Testicular embryonal carcinoma S/P Chemotherapy, Stem cell Transplant in 2013 Follows with Oncology Continue home medications Hypothyroidism TSH markedly elevated secondary to medication noncompliance due to inconvenience of taking tablet in a.m. Normal free T4 Started on levothyroxine 25 mcg daily H/O PE/DVT Currently not on anticoagulation Previously was on Coumadin Chronic migraine Stable monitor Prediabetes ? 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 Conway Accepting physician Dr.Salah Alvarado, Oncology Total Time Total Time Spent Total Time Spent (In Minutes): 46 minutes Discharge Plan Discharge Items Patient Disposition: Transfer Acute Care Hospital Reason For Visit: SYMPTOMATIC ANEMIA Discharge Diagnosis: Symptomatic anemia Periodontal disease/Facial Cellulitis Bacteremia Possible allergic reaction to Unasyn B-cell acute lymphocytic leukemia Activity: Per Instructions section Exercise/Sports: Wait until after follow-up appointment Non-emergency contact: Primary Care Provider and Oncologist Call non-emergency contact if: you have any medication questions, your symptoms worsen, your pain is not controlled, your pain is worsening, your pain is unusual for you, your pain is concerning for you and you have a fever Follow-up/Referrals: Ginger Francois, PAMary [Primary Care Provider] - Diet: Regular Diet Texture: Dental soft (bite-sized) Addtl Attending Provider Instructions: Follow-up with Dr. Vamsi Alvarado, Oncologist at [facility] for further evaluation and management Pending Studies at Discharge: Yes Studies:: Blood cultures Stand-Alone Forms: My [facility] Skilled Items Patient informed of condition?: Yes DNR: No Discharge Level of Care: Other Communicable Disease: No Discharge Prognosis: Stable Lines: Peripheral IV Urinary Catheter: No Medications and DC Order Prescriptions: Continued nystatin 100,000 unit/mL suspension 0 ml PO DAILY PRN (Reason: Mouth Soreness) RF: 0 prochlorperazine maleate 10 mg tablet 10 mg PO UD PRN (Reason: Nausea) RF: 0 ciprofloxacin HCl 500 mg tablet 500 mg PO BID RF: 0 lansoprazole 30 mg capsule,delayed release(DR/EC) 0 mg PO QAM RF: 0 gabapentin 300 mg capsule 300 mg PO TID RF: 0 allopurinol 300 mg tablet 300 mg PO HS RF: 0 acyclovir 200 mg capsule 200 mg PO QAM RF: 0 oxycodone 5 mg tablet 5 mg PO .Q4-6H RF: 0 insulin lispro [Humalog KwikPen Insulin] 100 unit/mL insulin pen 0 unit SUBCUT UD RF: 0 Humulin N NPH Insulin KwikPen 100 unit/mL (3 mL) insulin pen 0 unit SUBCUT UD RF: 0 levocarnitine (with sugar) 100 mg/mL solution 0 mg PO Q8H RF: 0 Discharge Orders: Discharge Order (Routine); Ordered 10/05/19 Ordered By: Clay Byrd/Other Patient Handouts: A1C Admission Data Admit Date/Time: 10/03/19 22:15 Attending Provider: Clay Wiggins Admit Provider: Roger Ivory Primary Care Provider: Ginger Francois Other Providers: Roger Ivory ; Filemon Conway
--- NOTE | 2019-10-05 14:55 | CT Scan Report ---
Study: CT facial bones HISTORY: Infection. Pain. Edema. COMPARISON: CT soft tissue neck 10/04/2019 FINDINGS: Findings consistent with a diffuse cellulitis of the submandibular and right perimandibular region. This appears to be least slightly increased from the prior exam. A well-defined drainable ab scess or collection is not appreciated. The major salivary glands appear symmetric. The extensive periodontal disease is again noted. IMPRESSION: 1. Stable to slightly increase in soft tissue edema adjacent to the right hemimandible as well as fin dings of the diffuse soft tissue cellulitis as described. 2. No evidence for drainable abscess or collection. 3. This study again suggests etiology relates to significant periodontal disease which has been descr ibed previously. 4. Overall, the appearance suggests a slight progression of inflammatory change throughout the hector m andibular and soft tissue regions as compared to the prior study. Electronically signed by: Edward Medeiros M.D. 10/05/2019 2:54 PM
--- NOTE | 2019-10-05 15:40 | Pharmacy Report ---
Pharmacy Abx Initial Consult - Date of Service October 05, 2019 - Pharmacy Dosing Scope Date of Consult: 10/05/2019 Consultation requested by: Dr. Wiggins Pharmacy is consulted to initiate Primaxin and Vancomycin IV dosing therapy, order appropriate labs and adjust drug dose/frequency. - Subjective The patient is a 33 year old M admitted on 10/03/19 22:15. - Objective Height: 6 ft 2 in Weight: 116.8 kg Vital Signs (Past 12hrs): Vital Signs Temp Pulse Pulse Resp BP BP BP 10/05/19 15:05 37.2 C 135 H 21 130/78 10/05/19 12:45 37.4 C 133 H 18 124/83 10/05/19 08:00 36.7 C 116 H 18 103/58 L 10/05/19 07:26 109 H 10/05/19 04:47 125 H 149/85 H 10/05/19 04:40 37.2 C 126 H 16 127/73 Pulse Ox 10/05/19 15:05 99 10/05/19 12:45 98 10/05/19 08:00 95 10/05/19 07:26 10/05/19 04:47 10/05/19 04:40 100 Lab Results (24hrs): Laboratory Tests (24 Hours) 10/05/19 10/05/19 10/04/19 06:07 06:07 20:33 WBC 0.05 L* Neut # (Auto) Cancelled Creatinine 0.69 Est Cr Clr Drug Dosing 208.8 Procalcitonin 0.23 10/04/19 10/04/19 20:33 20:33 WBC 0.07 L* Neut # (Auto) Cancelled Creatinine 0.67 Est Cr Clr Drug Dosing 216.3 Procalcitonin Micro Results: 10/04/19 20:33 Aerobic Blood Culture - Pending Blood Anaerobic Blood Culture - Pending - Risk Factors for Resistance * Immunocompromised (chronic steroid therapy, chemotherapy, immunomodulators) * H/o testicular cancer and B-cell ALL * Antimicrobial use within the last 90 days * Chronically on Acyclovir and Ciprofloxacin at home for prophylaxis - Assessment & Plan Assessment 33 year old M admitted on 10/04/2019 secondary to epistaxis Patient has a h/o testicular cancer and B-cell ALL, both in remission He takes antiviral (acyclovir) and antimicrobial (ciprofloxacin) prophylaxis at home Originally started on Unasyn and home cipro dose secondary to suspected periodontal infection CT neck shows soft tissue swelling suggestive of cellulitis secondary to periodontal disease Patient presented with low-grade fever and has extensive neutropenia, will cover for MRSA and Pseudomonas BCx growing GPCs in clusters Plan IV Vancomycin and Primaxin for treatment of cellulitis/neutropenic fever Vancomycin IV * Estimated PK Parameters: Vd 0.6 L/kg, Heriberto 0.170 hr-1, t1/2 4 hrs * Loading dose: 2500 mg (21.5 mg/kg) * Maintenance dose: 1750 mg IV (15 mg/kg) every 6 hours * Goal trough level for cellulitis/neutropenic fever: 15 to 20 mcg/mL * Trough level ordered for 10/06/2019 * Aggressive dosing has been chosen initially to get patient to a therapeutic trough quicker given severity of illness. Will adjust dose based on trough level tomorrow. Imipenem/Cilastatin * 500 mg IV every 6 hours for CrCl greater than 90 mL/min Pharmacy will continue to follow and will adjust dose/frequency as necessary. Thank you.
[2019-10-05] MEDS ORDERED: METOPROLOL TARTRATE 1 MG/ML VIAL IV ONE (16:35)
[2019-10-05] MEDS ORDERED: VANCOMYCIN HCL 1,750 MG in SODIUM CHLORIDE 0.9% 500 ML IV SCH (20:00)
[2019-10-06] MEDS ORDERED: VANCOMYCIN TROUGH SCH (13:30)
--- NOTE | 2019-10-11 09:17 | Coding Query ---
SEPSIS Please clarify below, in your clinical opinion, due to conflicting documentation on 10/04/18 Communication Report of Sepsis and Discharge Summary documentation of Bacteremia. To promote full compliance with coding requirements relating to patient care, physician participation is requested in all cases of seed buyer uncertainty. Please assist us with the question(s) below: In responding to this query, please exercise your independent professional judgement. The fact that a question is asked does not imply that any particular answer is desired or expected. We appreciate your clarification on this issue. Throughout the medical record, you have clearly documented a localized infection and your patient has clinical evidence of a generalized sepsis or severe sepsis. The term urosepsis is a nonspecific entity and is coded as an UTI. If the patient has sepsis, severe sepsis, from an urinary source or some other source, please clarify in your response below. The medical record reflects the following clinical findings: (With dates as appropriate) (Body temperature of >38.3 C(101 F) or <36 C(96.8F), pulse >90/minute, respirations >20/minute, WBC count >12,000 or <4,000, altered mental status, significant edema or positive fluid balance, hyperglycemia without diabetes, hypotension, metabolic acidosis (elev. lactate level, anion gap or reduced blood pH), shock, positive blood culture (enter organism) ____ ()Bacteremia (Nonspecific laboratory finding of bacteria in the blood) Specify Organism () Present on Admission () Not present on admission () Unable to clinically determine (X) Septicemia (Systemic disease associated with the presence of pathogenic microorganisms in the blood): Specify Organism () Present on Admission () Not present on admission () Unable to clinically determine () Sepsis Specify Organism Specify Associated Condition/Diagnosis () Present on Admission () Not present on admission () Unable to clinically determine () Severe Sepsis (Sepsis associated with acute organ dysfunction) Specify Organism Specify Associated Condition/Diagnosis () Present on Admission () Not present on admission () Unable to clinically determine () Septic Shock (Severe sepsis with acute circulatory failure, unexplained by other causes) () Present on Admission () Not present on admission () Unable to clinically determine () Other, patient has: MTDD
== END 2019-10-05 16:57 | disposition short-term general hospital (02) | DRG 808 ==
LOC: ED 19:15 → 2N 22:15

== ENCOUNTER 2023-04-08 07:54 | Inpatient (IN) ==
--- NOTE | 2023-04-08 08:20 | Emergency Department Note ---
History of Present Illness General Chief complaint: Flank Pain Stated complaint: SERVERE ABD PAIN Time Seen by Provider: 04/08/23 08:02 History of Present Illness Maximum Pain Intensity: 8 This is a 37-year-old male with a history of leukemia status post bone marrow transplant now with jvnum-vwukyw-dasl disease undergoing phototherapy every 2 weeks at [facility] that presents to the emergency department via private vehicle with complaints of "right lower quadrant abdominal pain". Patient notes that he is chronically on 2 L of oxygen. Patient states that this past evening he began with feeling unwell and sharp pain to the right side of his right lower abdomen. He denies any known trauma or injury. He did have to increase his oxygen from 2 L chronically now to 4 L as he notes that he cannot take a deep breath secondary to the deep pain in the right lower quadrant. Patient notes that he is currently anticoagulated on Xarelto noting history of PE. Patient denies any fevers, chills or vomiting. He does have some nausea associated with this discomfort. No blood in the stool. He does note that he is moving his bowels in the stool does seem a bit loose/diarrhea- like. Home Medications Medication Instructions Recorded Confirmed Type prochlorperazine maleate 10 mg 10 mg PO UD PRN Nausea 10/03/19 04/08/23 History tablet midodrine 5 mg tablet 5 mg PO TIDM 11/20/19 04/08/23 History insulin lispro 100 unit/mL 0 unit subcut TIDM 07/21/20 04/08/23 History subcutaneous pen (Humalog KwikPen (U-100) Insulin) oxycodone 10 mg tablet 10 mg PO Q8 PRN Pain 07/21/20 04/08/23 History rizatriptan 10 mg disintegrating 10 mg PO UD PRN Migraine Headache 07/21/20 History tablet gabapentin 100 mg capsule 200 mg PO TID 07/27/21 04/08/23 History rivaroxaban 10 mg tablet (Xarelto) 10 mg PO DAILY 07/27/21 04/08/23 History acyclovir 400 mg tablet 400 mg PO BID 04/08/23 04/08/23 History baclofen 10 mg tablet 10 mg PO TID 04/08/23 04/08/23 History kmrlpgnpzc-fxfocqerkrhmj-lijyxrdc 1 tab PO Q4H PRN Migraine Headache 04/08/23 04/08/23 History 50 mg-325 mg-40 mg tablet cetirizine 10 mg tablet 10 mg PO DAILY 04/08/23 04/08/23 History famotidine 20 mg tablet 20 mg PO DAILY 04/08/23 04/08/23 History fentanyl 25 mcg/hr transdermal 25 patch transdermal Q72H 04/08/23 04/08/23 History patch fluticasone fur. 100 mcg-umeclid 1 inh inhalation QAM 04/08/23 04/08/23 History 62.5 mcg-vilant 25 mcg inhalat.powder (Trelegy Ellipta) insulin detemir U-100 100 unit/mL 10 unit subcut DIRECTED 04/08/23 04/08/23 History (3 mL) subcutaneous pen (Levemir FlexPen) lansoprazole 30 mg capsule,delayed 30 mg PO QAM 04/08/23 04/08/23 History release lorazepam 0.5 mg tablet 0.5 mg PO TID PRN Anxiety 04/08/23 04/08/23 History metformin 500 mg tablet,extended 500 mg PO BID 04/08/23 04/08/23 History release 24 hr montelukast 10 mg tablet 10 mg PO DAILY 04/08/23 04/08/23 History ondansetron 4 mg disintegrating 4 mg PO Q8H PRN Nausea 04/08/23 04/08/23 History tablet posaconazole 100 mg tablet,delayed 100 mg PO DAILY 04/08/23 04/08/23 History release prednisone 10 mg tablet 7.5 mg PO DIRECTED 04/08/23 04/08/23 History ruxolitinib 10 mg tablet (Jakafi) 10 mg PO DAILY 04/08/23 04/08/23 History sulfamethoxazole 800 1 tab PO BID 04/08/23 04/08/23 History mg-trimethoprim 160 mg tablet tacrolimus 0.5 mg capsule, 0.5 mg PO Q12H 04/08/23 04/08/23 History immediate-release ursodiol 300 mg capsule 300 mg PO TID 04/08/23 04/08/23 History Allergies Allergy/AdvReac Type Severity Reaction Status Date / Time ampicillin [From Unasyn] Allergy Intermediate Rash and Verified 07/27/21 19:19 lip swelling sulbactam [From Unasyn] Allergy Intermediate Rash Verified 07/27/21 19:19 pegaspargase AdvReac Severe Liver Verified 07/27/21 19:19 Issues Past Med/Surg History Medical History (Updated 04/08/23 @ 15:25 by Tony Oneal PA-C) DVT (deep venous thrombosis) bilateral lower extremities; right anterior forearm Epistaxis Leukemia ALL Neuropathy Bilateral feet and hands from chemo for testicular cancer and current robert gnosis of ALL Pulmonary embolism 2011 Testicular cancer Remission for five years prior to getting ALL Surgical History Bone marrow transplant status 2013 x2 Status post dissection of cervical lymph nodes Removal of 17 lymph nodes; some positive per patient in 2017 Social History Smoking Status: Never smoker Second Hand Exposure: No; Do You Dip or Chew Tobacco: Yes (1 can in 2 days); Hx Alcohol Use: Yes Hx Substance Use: No Preferred Language: Greek Communication Ability: Effective 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: No Beliefs That Will Affect Care: None Current Living Situation: Spouse and Family Feels Safe at Home: Yes Assistive Devices: None Review of Systems A total of 10 systems reviewed and were otherwise negative Physical Exam Vital Signs Vital Signs - 24 hr 04/08/23 07:56 04/08/23 08:08 04/08/23 08:23 Temperature 36.2 C L Temperature Source Temporal Artery Scan Pulse Rate 117 H 111 H Pulse Rate [Right Finger] Pulse Rhythm [Right Finger] Pulse Strength [Right Finger] Respiratory Rate 20 Respiratory Effort / Characteristics Respiratory Depth Respiratory Pattern Blood Pressure 139/106 H Blood Pressure [Right Arm] Blood Pressure Mean 117 Blood Pressure Mean [Right Arm] Blood Pressure Position [Right Arm] Pulse Oximetry 97 92 Oxygen Delivery Method Nasal Cannula Nasal Cannula Oxygen Flow Rate 4 2 Sepsis Recent Fever Within 48 Hours No Sepsis New/Unexplained Change in Mental Status No Sepsis Action Taken by Nursing No Action Required Oxygen Flow Rate - Titration 4 Pulse Oximetry Post Tiitration 95 04/08/23 09:00 04/08/23 11:14 04/08/23 12:27 Temperature 36.6 C Temperature Source Oral Pulse Rate 88 Pulse Rate [Right Finger] 108 H 86 Pulse Rhythm [Right Finger] Regular Regular Pulse Strength [Right Finger] Normal Respiratory Rate 20 16 Respiratory Effort / Characteristics Non-Labored Non-Labored Respiratory Depth Normal Normal Respiratory Pattern Regular Blood Pressure Blood Pressure [Right Arm] 163/99 H 138/100 Blood Pressure Mean Blood Pressure Mean [Right Arm] 120 112 Blood Pressure Position [Right Arm] Lying Pulse Oximetry 95 96 Oxygen Delivery Method Room Air Nasal Cannula Oxygen Flow Rate Sepsis Recent Fever Within 48 Hours Sepsis New/Unexplained Change in Mental Status Sepsis Action Taken by Nursing Oxygen Flow Rate - Titration Pulse Oximetry Post Tiitration 04/08/23 13:00 04/08/23 16:12 Temperature Temperature Source Pulse Rate 103 H Pulse Rate [Right Finger] 90 Pulse Rhythm [Right Finger] Pulse Strength [Right Finger] Respiratory Rate 16 18 Respiratory Effort / Characteristics Non-Labored Respiratory Depth Normal Respiratory Pattern Blood Pressure 134/97 Blood Pressure [Right Arm] 129/92 Blood Pressure Mean Blood Pressure Mean [Right Arm] 104 Blood Pressure Position [Right Arm] Pulse Oximetry 95 96 Oxygen Delivery Method Nasal Cannula Nasal Cannula Oxygen Flow Rate 3 2 Sepsis Recent Fever Within 48 Hours Sepsis New/Unexplained Change in Mental Status Sepsis Action Taken by Nursing Oxygen Flow Rate - Titration Pulse Oximetry Post Tiitration VITAL SIGNS - Vital signs and nursing notes were reviewed. On arrival patient is found to be tachycardic at 117, afebrile at 36.2, O2 sat of 97. Respiratory rate of 20. GENERAL -37-year-old male appearing his stated age who is in no acute distress. He is utilizing nasal cannula oxygen. Communicates well with provider and answers questions appropriately. SKIN - Without rashes. No meningeal or petechial rash. HEAD - NC/AT. EYES - PERRL with EOMI bilaterally. Sclera anicteric. EARS - No deformities of external structures noted on gross examination bilaterally. NOSE - Midline and without cyanosis. No epistaxis or purulent drainage noted. MOUTH/OROPHARYNX - Without perioral cyanosis. NECK - No nuchal rigidity. LUNGS -CTA CARDIAC - RRR ABDOMEN - Abdominal contour normal without pulsations or visible masses. BS normoactive all four quadrants. There is right lower quadrant abdominal tenderness to palpation. No guarding or rigidity. No palpable masses, hepatosplenomegaly, or ascites noted. EXTREMITIES - No clubbing or peripheral cyanosis. +5/5 strength noted in UE/LE bilaterally. NEUROLOGIC - Cranial nerves II through XII grossly intact. PSYCH - A&O, and cooperates fully with examiner. Pt is very pleasant and interacts well with examiner. Course Administered Medications Discontinued Medications Hydromorphone HCl (Hydromorphone Inj 0.5 Mg/0.5 Ml Syr) 0.5 mg IV NOW STA Stop: 04/08/23 08:23 Last Admin: 04/08/23 08:27 Dose: 0.5 mg Documented By: LEXI Hydromorphone HCl (Hydromorphone Inj 0.5 Mg/0.5 Ml Syr) 0.5 mg IV NOW STA Stop: 04/08/23 11:18 Last Admin: 04/08/23 11:25 Dose: 0.5 mg Documented By: CRYSTAL Hydromorphone HCl (Hydromorphone Inj 0.5 Mg/0.5 Ml Syr) 0.25 mg IV NOW STA Stop: 04/08/23 15:34 Last Admin: 04/08/23 15:36 Dose: 0.25 mg Documented By: DHRUV Ioversol (Optiray 320 100ml) 95 ml IV ONCE ONE Stop: 04/08/23 10:59 Last Admin: 04/08/23 10:58 Dose: 95 ml Documented By: BRANDYN Ioversol (Optiray 320 125ml) 116 ml IV ONCE ONE Stop: 04/08/23 15:24 Last Admin: 04/08/23 15:24 Dose: 116 ml Documented By: JUAN J Ondansetron HCl (Ondansetron Inj 2 Mg/Ml 2 Ml Vial) 4 mg IV NOW STA Stop: 04/08/23 08:23 Last Admin: 04/08/23 08:27 Dose: 4 mg Documented By: LEXI Sennosides (Senna 8.6 Mg Tab) 8.6 mg PO NOW ONE Stop: 04/08/23 14:58 Last Admin: 04/08/23 16:08 Dose: 8.6 mg Documented By: DHRUV Medical Decision Making Laboratory Data 04/08/23 08:10 04/08/23 08:10 Lab Results 04/08/23 04/08/23 04/08/23 Range/Units 08:10 08:10 08:10 WBC 9.10 (4.8-10.8) K/ul RBC 3.86 L (4.70-6.10) M/uL Hgb 13.7 L (14.0-18.0) g/dl Hct 40.3 L (42.0-52.0) % MCV 104.4 H (80.0-100.0) fL MCH 35.5 H (25.0-34.0) pg MCHC 34.0 (32.0-36.0) g/dL RDW Std Deviation 58.5 H (36.4-46.3) fL RDW Coeff of Tatyana 15.2 H (11.5-14.5) % Plt Count 288 (130-400) K/uL MPV 9.4 (9.4-12.4) fL Immature Gran % (Auto) 1.4 % Neut % (Auto) 74.4 % Lymph % (Auto) 13.6 % Dillon % (Auto) 9.3 % Eos % (Auto) 1.1 % Baso % (Auto) 0.2 % Neut # (Auto) 6.76 H (1.40-6.50) K/uL Lymph # (Auto) 1.24 (1.2-3.4) K/uL Dillon # (Auto) 0.85 H (0.11-0.59) K/uL Eos # (Auto) 0.10 (0-0.50) K/uL Baso # (Auto) 0.02 (0-0.2) K/uL Immature Gran # (Auto) 0.13 (0.01-0.20) K/uL Absolute Nucleated RBC 0.06 (0-0.12) K/uL Nucleated RBC % (auto) 0.7 % PT Cancelled INR Cancelled APTT Cancelled PTT Ratio Cancelled D-Dimer Cancelled Sodium 139 (136-145) mmol/L Potassium 4.0 (3.5-5.1) mmol/L Chloride 101 (98-107) mmol/L Carbon Dioxide 29 (21-32) mmol/L Anion Gap 9 (3-11) BUN 22 (6-23) mg/dl Creatinine 1.33 (0.6-1.4) mg/dl Est Cr Clr Drug Dosing 112.1 ml/min Est GFR ( Amer) 79.1 ml/min Est GFR (Non-Af Amer) 68.3 ml/min BUN/Creatinine Ratio 16.5 (10-20) Glucose 148 H (70-99(Fasting)) mg/dl Calcium 9.8 (8.6-10.3) mg/dl Total Bilirubin 0.5 (0.2-1.0) mg/dl AST 22 (13-39) U/L ALT 45 (7-52) U/L Alkaline Phosphatase 83 (34-104) U/L Troponin I High Sens 8.6 (0-20) pg/ml Total Protein 6.9 (6.0-8.3) gm/dl Albumin 4.4 (3.4-5.0) gm/dl Globulin 2.5 (2.5-4.0) gm/dl Albumin/Globulin Ratio 1.8 (0.9-2) Lipase 20 (11-82) U/L Urine Color Urine Appearance (Clear) Urine pH (4.5-7.5) Ur Specific [place] (1.000-1.030) Urine Protein (Negative) Urine Glucose (UA) (Negative) Urine Ketones (Negative) Urine Blood (Negative) Urine Nitrite (Negative) Urine Bilirubin (Negative) Urine Urobilinogen (Negative) Ur Leukocyte Esterase (Negative) Urine WBC (Auto) (0-5) /hpf Urine RBC (Auto) (0-4) /hpf U Hyaline Cast (Auto) (0-5) /lpf U Epithel Cells (Auto) (0-5) /lpf Urine Bacteria (Auto) (Negative) SARS-CoV-2, RNA, NAAT (NEGATIVE) 04/08/23 04/08/23 04/08/23 Range/Units 09:19 11:55 13:02 WBC (4.8-10.8) K/ul RBC (4.70-6.10) M/uL Hgb (14.0-18.0) g/dl Hct (42.0-52.0) % MCV (80.0-100.0) fL MCH (25.0-34.0) pg MCHC (32.0-36.0) g/dL RDW Std Deviation (36.4-46.3) fL RDW Coeff of Tatyana (11.5-14.5) % Plt Count (130-400) K/uL MPV (9.4-12.4) fL Immature Gran % (Auto) % Neut % (Auto) % Lymph % (Auto) % Dillon % (Auto) % Eos % (Auto) % Baso % (Auto) % Neut # (Auto) (1.40-6.50) K/uL Lymph # (Auto) (1.2-3.4) K/uL Dillon # (Auto) (0.11-0.59) K/uL Eos # (Auto) (0-0.50) K/uL Baso # (Auto) (0-0.2) K/uL Immature Gran # (Auto) (0.01-0.20) K/uL Absolute Nucleated RBC (0-0.12) K/uL Nucleated RBC % (auto) % PT 11.3 INR 1.0 APTT 29.8 PTT Ratio 1.1 D-Dimer 440 Sodium (136-145) mmol/L Potassium (3.5-5.1) mmol/L Chloride (98-107) mmol/L Carbon Dioxide (21-32) mmol/L Anion Gap (3-11) BUN (6-23) mg/dl Creatinine (0.6-1.4) mg/dl Est Cr Clr Drug Dosing ml/min Est GFR ( Amer) ml/min Est GFR (Non-Af Amer) ml/min BUN/Creatinine Ratio (10-20) Glucose (70-99(Fasting)) mg/dl Calcium (8.6-10.3) mg/dl Total Bilirubin (0.2-1.0) mg/dl AST (13-39) U/L ALT (7-52) U/L Alkaline Phosphatase (34-104) U/L Troponin I High Sens (0-20) pg/ml Total Protein (6.0-8.3) gm/dl Albumin (3.4-5.0) gm/dl Globulin (2.5-4.0) gm/dl Albumin/Globulin Ratio (0.9-2) Lipase (11-82) U/L Urine Color Yellow Urine Appearance Clear (Clear) Urine pH 5.5 (4.5-7.5) Ur Specific [place] 1.043 H (1.000-1.030) Urine Protein 1+ H (Negative) Urine Glucose (UA) 2+ H (Negative) Urine Ketones Negative (Negative) Urine Blood Trace H (Negative) Urine Nitrite Negative (Negative) Urine Bilirubin Negative (Negative) Urine Urobilinogen Negative (Negative) Ur Leukocyte Esterase Negative (Negative) Urine WBC (Auto) 1-5 (0-5) /hpf Urine RBC (Auto) 0-4 (0-4) /hpf U Hyaline Cast (Auto) 1-5 (0-5) /lpf U Epithel Cells (Auto) 5-10 H (0-5) /lpf Urine Bacteria (Auto) Negative (Negative) SARS-CoV-2, RNA, NAAT NEGATIVE (NEGATIVE) Imaging Data Radiologist's Impression: Chest X-Ray 04/08/23 08:18 XR chest 1V portable HISTORY: 37 years-old Male dyspnea, RLQ abd pain acute shortness of breath COMPARISON: 10/08/2022 TECHNIQUE: AP view the chest FINDINGS: Right IJ dual-lumen hemodialysis catheter distal tip terminates within the inferior SVC distribution. Cardiac silhouette is normal. No pneumothorax, pleural effusion or airspace consolidation. The bones appear grossly intact. IMPRESSION: No acute process. ACT 112: Negative or not required by law. The above report was generated using voice recognition software. It may contain grammatical, syntax or spelling errors. Electronically signed by: Ortiz Valero M.D. 04/08/2023 8:48 AM Abdomen/Pelvis CT 04/08/23 10:[address] WITH IV CONTRAST CT DOSE: 1437.03 mGy.cm HISTORY: Acute right lower quadrant abdominal pain RLQ abd pain TECHNIQUE: Multiaxial CT images of the abdomen and pelvis were performed following the IV administration of 95 cc of Optiray, A dose lowering technique was utilized adhering to the principles of ALARA. COMPARISON STUDY: 07/24/2019 FINDINGS: Partially imaged catheter within the superior cavoatrial junction. Mild subsegmental bibasilar densities favor atelectasis versus scarring. No pneumatosis or pneumoperitoneum. Unremarkable spleen, pancreas and adrenal glands. There is suggested fundal adenomyomatosis of the gallbladder. Hepatic steatosis. Patency of the hepatic and portal veins. On nonspecific bilateral perinephric stranding. Linear scarring is again noted within the left retroperitoneum suggestive of prior percutaneous nephrostomy catheter placement. Scarring with subcentimeter calcifications in the inferior pole left kidney. Numerous surgical clips within the retroperitoneum are again noted. No abdominal aortic aneurysm or lymphadenopathy. Partial distention of the urinary bladder with mild wall thickening. No bowel obstruction or bowel wall thickening. Moderate fecal retention of the cecum. Normal appendix. Diastases recti with small fat filled umbilical hernia, diastases of 2 cm. No acute fracture. Demineralized appearance of the bones with heterogeneous appearance of the bone marrow. IMPRESSION: 1. No acute intra-abdominal or intrapelvic abnormality. 2. Normal appendix. 3. Nonspecific heterogeneous appearance of the bone marrow. 4. Chronic findings as above. ACT 112: Negative or not required by law. The above report was generated using voice recognition software. It may contain grammatical, syntax or spelling errors. Electronically signed by: Ortiz Valero M.D. 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 Acute chest pain or shortness of breath TECHNIQUE: Multiple CTA images of the chest were obtained after the intravenous administration of 116 ml Optiray. Coronal and sagittal MIPS were obtained from the axial data set and were submitted for review. All measurements were obtained according to NASCET criteria. A dose lowering technique was utilized adhering to the principles of ALARA. COMPARISON: CT abdomen and pelvis of same day, CT chest 07/21/2020 FINDINGS: CTA: There is adequate opacification of the pulmonary arteries to the level of the subsegmental branches without convincing evidence of acute pulmonary embolism. Unremarkable thoracic aorta. There are 2 right IJ central venous catheter is in place with distal tip terminating within the right atrium.Heart size is normal. CT CHEST: No dominant thyroid nodule is seen. No pathologically adenopathy by CT size criteria. Likely benign 3 mm solid nodule in the right upper lobe on image 202. Mild subsegmental bibasilar densities suggest atelectasis. There is no pneumothorax, pleural effusion or focal airspace consolidation. The imaged upper abdominal structures demonstrate no acute abnormality. No acute fracture identified. Mild degenerative changes throughout the spine. IMPRESSION: Unremarkable CTA of the chest. ACT 112: Negative or not required by law. The above report was generated using voice recognition software. It may contain grammatical, syntax or spelling errors. Electronically signed by: Ortiz Valero M.D. 04/08/2023 3:33 PM MDM Narrative Patient was seen and evaluated as above in room C06. Review was performed of triage nursing notes and vital signs. After obtaining a thorough history and physical examination the above work up was performed. Patient presents to us today for evaluation of right lower quadrant abdominal pain. Patient clinically well-appearing and nontoxic on examination. Nasal cannula oxygen utilized he notes to now 4 L up from 2 at baseline as he cannot take a deep breath without causing pain to the right lower quadrant. He does have right lower quadrant abdominal pain that has been persistent since this past . There is some diarrhea as well. No chest pain. Right lower quadrant abdominal pain is reproduced with notable tenderness to palpation overlying the right lower quadrant. No guarding or rigidity. Options of care were discussed with the patient. IV access was established. EKG was obtained and reveals sinus tachycardia at a rate of 115 bpm. QTc 448. QRS 108. No ST elevation. Labs were drawn. There is no leukocytosis. Minor anemia noted with hemoglobin of 13.7. Coags are normal. Metabolic panel without evidence of kidney or liver failure emergently. Troponin within normal range at 8.6. Hyperglycemia 148. Urinalysis does not suggest infection. Imaging modality options discussed with the patient. Imaging of the abdomen/is felt to be reasonable noting area of discomfort. I have a low suspicion for PE overall as the patient has right lower quadrant abdominal pain and no chest pain or dyspnea from baseline. Patient is also anticoagulated therefore chance of PE is also felt to be lower. In an attempt to minimize contrast load and radiation, decision was made to proceed with a chest x-ray, D-dimer as well as CT scan of the abdomen/pelvis rather than adding on a CTA of the chest with the abd/pelvis. CT scan of the abdomen/pelvis as above. No acute intra-abdominal or intrapelvic abnormality. Normal appendix. Nonspecific heterogeneous appearance of the bone marrow. Chronic findings noted. Chest x-ray was negativ e for acute process. D-dimer returned within normal limits. The patient while here in the ED did undergo a few doses of IV analgesia as well as antiemetic. Patient's abdominal examination does not reveal findings to suggest peritonitis. There is comment on the CT scan of moderate fecal retention of the cecum which certainly could cause his discomfort in the abdomen. However, given the patient 's comorbidities and presentation here today I do believe he would be best managed in the inpatient setting to trend his symptoms. Case discussed with the hospitalist service. Patient amenable to plan of care. Please refer to further documentation regarding his stay. Case was discussed with the attending physician. GCS: 15 In the evaluation and treatment of this patient the following differential diagnoses were entertained: UTI, pyelonephritis, bowel obstruction, perforation, peritonitis, ischemic bowel, PE, among others. Impression & Plan Abdominal pain, acute, right lower quadrant Discharge Plan Visit Data Chief Complaint: Flank Pain Stated Complaint: SERVERE ABD PAIN ED Provider: Sandeep Barnes ED Midlevel Provider: Tony Oneal Discharge Problem: Abdominal pain, acute, right lower quadrant Patient Disposition: Admitted As Inpatient Condition: Good Discharge Instructions Interventions: ED Discharge Assessment Last Done: 04/08/23 16:12 Forms Stand Alone Forms: [facility] Dache Prescriptions Prescriptions: No Action prochlorperazine maleate 10 mg tablet 10 mg PO UD PRN (Reason: Nausea) rizatriptan 10 mg tablet,disintegrating 10 mg PO UD PRN (Reason: Migraine Headache) oxycodone 10 mg tablet 10 mg PO Q8 PRN (Reason: Pain) insulin lispro [Humalog KwikPen Insulin] 100 unit/mL insulin pen 0 unit SUBCUT TIDM Rx Instructions: sliding scale midodrine 5 mg Tablet 5 mg PO TIDM Xarelto 10 mg tablet 10 mg PO DAILY gabapentin 100 mg capsule 200 mg PO TID Rx Instructions: per , he takes 2 caps three times daily fentanyl 25 mcg/hr patch 72 hour 25 patch transdermal Q72H Rx Instructions: 72 hours prednisone 10 mg tablet 7.5 mg PO DIRECTED cetirizine 10 mg tablet 10 mg PO DAILY acyclovir 400 mg tablet 400 mg PO BID sulfamethoxazole-trimethoprim 800-160 mg tablet 1 tab PO BID enujeahyyx-pvbbnnncblxbu-syva 50-325-40 mg tablet 1 tab PO Q4H PRN (Reason: Migraine Headache) famotidine 20 mg tablet 20 mg PO DAILY lorazepam 0.5 mg tablet 0.5 mg PO TID PRN (Reason: Anxiety) Rx Instructions: per he usually takes one a day in the morning baclofen 10 mg tablet 10 mg PO TID lansoprazole 30 mg capsule,delayed release(DR/EC) 30 mg PO QAM ursodiol 300 mg capsule 300 mg PO TID montelukast 10 mg tablet 10 mg PO DAILY ondansetron 4 mg tablet,disintegrating 4 mg PO Q8H PRN (Reason: Nausea) metformin 500 mg tablet extended release 24 hr 500 mg PO BID tacrolimus 0.5 mg capsule 0.5 mg PO Q12H Levemir FlexPen 100 unit/mL (3 mL) insulin pen 10 unit SUBCUT DIRECTED Rx Instructions: 10 units am and pm Jakafi 10 mg tablet 10 mg PO DAILY posaconazole 100 mg tablet,delayed release (DR/EC) 100 mg PO DAILY Trelegy Ellipta 100-62.5-25 mcg blister with device 1 inh INHALATION QAM Referrals Referrals: Ginger Francois PAJuanC [Primary Care Provider] -
[2023-04-08] MEDS ORDERED: HYDROmorphone INJ 0.5 MG/0.5 ML SYR IV STA ×3 (08:22→15:33)
[2023-04-08] MEDS ORDERED: ONDANSETRON INJ 2 MG/ML 2 ML VIAL IV STA (08:22)
[2023-04-08 08:32] LABS: Basophils # (auto) 0.02 K/uL (0-0.2); Basophils % (auto) 0.2 %; Eosinophils % (auto) 1.1 %; Hematocrit (blood only) 40.3 % (42.0-52.0); Hemoglobin 13.7 g/dl (14.0-18.0); Immature Granulocytes # (auto) 0.13 K/uL (0.01-0.20); Immature Granulocytes % (auto) 1.4 %; Lymphocytes # (auto) 1.24 K/uL (1.2-3.4); Lymphocytes % (auto) 13.6 %; Mean Corpuscular Hemoglobin 35.5 pg (25.0-34.0); Mean Corpuscular Volume 104.4 fL (80.0-100.0); Mean Platelet Volume 9.4 fL (9.4-12.4); Monocytes # (auto) 0.85 K/uL (0.11-0.59); Monocytes % (auto) 9.3 %; Neutrophils # (auto) 6.76 K/uL (1.40-6.50); Neutrophils % (auto) 74.4 %; Nucleated RBC # (auto) 0.06 K/uL (0-0.12); Nucleated RBC % (auto) 0.7 %; Platelet Count 288 K/uL (130-400); RDW Coefficient of Variation 15.2 % (11.5-14.5); RDW Standard Deviation 58.5 fL (36.4-46.3); Red Blood Count 3.86 M/uL (4.70-6.10)
[2023-04-08 08:49] LABS: Albumin Globulin Ratio 1.8 (0.9-2); Albumin Level 4.4 gm/dl (3.4-5.0); BUN Creatinine Ratio 16.5 (10-20); Bilirubin,Total 0.5 mg/dl (0.2-1.0); Calcium 9.8 mg/dl (8.6-10.3); Creatinine Clr Calc Pharmacy 112.1 ml/min; Est GFR (African American) 79.1 ml/min; Est GFR (Non-African American) 68.3 ml/min; Globulin 2.5 gm/dl (2.5-4.0); Total Protein 6.9 gm/dl (6.0-8.3)
--- NOTE | 2023-04-08 08:49 | XRay Report ---
XR chest 1V portable HISTORY: 37 years-old Male dyspnea, RLQ abd pain acute shortness of breath COMPARISON: 10/08/2022 TECHNIQUE: AP view the chest FINDINGS: Right IJ dual-lumen hemodialysis catheter distal tip terminates within the inferior SVC distribution. Cardiac silhouette is normal. No pneumothorax, pleural effusion or airspace consolidation. The bones appear grossly intact. IMPRESSION: No acute process. ACT 112: Negative or not required by law. The above report was generated using voice recognition software. It may contain grammatical, syntax o r spelling errors. Electronically signed by: Ortiz Valero M.D. 04/08/2023 8:48 AM
[2023-04-08 08:56] LABS: Troponin I High Sensitivity 8.6 pg/ml (0-20)
[2023-04-08 10:13] LABS: D Dimer 440 ug/L FEU (0-500); Partial Thromboplastin Ratio 1.1; Partial Thromboplastin Time 29.8 Seconds (21.0-31.0); Prothrombin Time 11.3 Seconds (9.0-12.0)
[2023-04-08] MEDS ORDERED: OPTIRAY 320 100ml IV ONE (10:58)
--- NOTE | 2023-04-08 11:26 | CT Scan Report ---
ABDOMEN AND PELVIS CT WITH IV CONTRAST CT DOSE: 1437.03 mGy.cm HISTORY: Acute right lower quadrant abdominal pain RLQ abd pain TECHNIQUE: Multiaxial CT images of the abdomen and pelvis were performed following the IV administrat ion of 95 cc of Optiray, A dose lowering technique was utilized adhering to the principles of ALARA. COMPARISON STUDY: 07/24/2019 FINDINGS: Partially imaged catheter within the superior cavoatrial junction. Mild subsegmental bibasi lar densities favor atelectasis versus scarring. No pneumatosis or pneumoperitoneum. Unremarkable spl een, pancreas and adrenal glands. There is suggested fundal adenomyomatosis of the gallbladder. Hepat ic steatosis. Patency of the hepatic and portal veins. On nonspecific bilateral perinephric stranding. Linear scarring is again noted within the left retrop eritoneum suggestive of prior percutaneous nephrostomy catheter placement. Scarring with subcentimete r calcifications in the inferior pole left kidney. Numerous surgical clips within the retroperitoneum are again noted. No abdominal aortic aneurysm or lymphadenopathy. Partial distention of the urinary bladder with mild wall thickening. No bowel obstruction or bowel wall thickening. Moderate fecal retention of the cecum. Normal appendix . Diastases recti with small fat filled umbilical hernia, diastases of 2 cm. No acute fracture. Demin eralized appearance of the bones with heterogeneous appearance of the bone marrow. IMPRESSION: 1. No acute intra-abdominal or intrapelvic abnormality. 2. Normal appendix. 3. Nonspecific heterogeneous appearance of the bone marrow. 4. Chronic findings as above. ACT 112: Negative or not required by law. The above report was generated using voice recognition software. It may contain grammatical, syntax o r spelling errors. Electronically signed by: Ortiz Valero M.D. 04/08/2023 11:24 AM
[2023-04-08 12:15] LABS: Appearance Urine Clear (Clear); Bacteria Urine Automated Negative (Negative); Bilirubin Urine Negative (Negative); Blood Urine Trace (Negative); Color Urine Yellow; Glucose Urine UA 2+ (Negative); Ketones Urine Negative (Negative); Leukocyte Esterase Urine Negative (Negative); Nitrite Urine Negative (Negative); Protein Urine 1+ (Negative); RBC Urine Automated 0-4 /hpf (0-4); Specific Gravity Urine 1.043 (1.000-1.030); Urobilinogen Urine Negative (Negative); pH Urine 5.5 (4.5-7.5)
--- NOTE | 2023-04-08 14:34 | History & Physical Report ---
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 Right lower quadrant pain Constipation Ongoing issues with constipation given chronic narcotic use, requires intermittent laxatives last taken 1 week ago Has been having diarrhea x 2 days with associated RLQ pain but CT abd/pelvis negative for acute intraabdominal or pelvic findings. 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 Edgar of heme/onc at [place] Feels clinical picture is not consistent with HVHD and therefore is okay to admit here for constipation and pain mgmt If patient develops a rash or abnormal LFTs in setting of diarrhea then will need to consider transfer to [facility] Obtained CTA chest to better evaluate for GVHD but no acute findings Will add Rocephin per Dr. Edgar's recommendation given possible enteritis and immunocompromised state (consider dc on Cipro), obtain stool cultures Continue current prednisone home dose, tacrolimus, ruxolitinib, acyclovir, posaconazole - will hold bactrim while receiving rocephin Planned follow up in 2 weeks when patient returns for photophoresis treatment Dr. Edgar butcher scullion this weekend - [phone] (cell if needed) Chronic respiratory failure with hypoxia In setting of graft versus host disease, asthma and pulmonary hypertension Is on 2 L nasal cannula consistently at baseline but increased oxygen of 4 L today due to feelings of shortness of breath-felt anxiety and pain also contributing CTA chest requested by Dr. 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 Per discussion with Dr. Edgar today, want to avoid IV narcotics as able History of testicular cancer Remote history, in remission DVT Ppx: Xarelto Code status: FULL PCP: Marilyn Dispo: Admitted to PCU Patient seen in collaboration with Dr. Orantes. Please see addendum. I spent a total of 80 minutes coordinating, documenting, and providing care for this patient excluding time spent in the performance of separately billed services. History of Present Illness Chief Complaint: RLQ pain Primary Care Provider: Ginger Francois PA-C This is a 37yo M with a PMH of testicular cancer in 2009, acute lymphocytic leukemia in 2018 s/p bone marrow transplant in [address] 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 Patient stayed overnight in [place] night before his photopheresis treatment and slept poorly due to being in a different bed. Developed diarrhea that night and was getting up and down to use the bathroom frequently and developed right lower quadrant pain. Was wondering if he possibly pulled a muscle. Has ongoing intermittent issues with constipation due to opioid use with last normal bowel movement occurring on Monday. Does take a laxative as needed but has not taken one since last week. Has continued to have some diarrhea since evening but no formed stool. Describes pain in right lower quadrant as sharp and worse with movement. Is on 2 L nasal cannula oxygen at baseline but has been requiring 4 L since this morning due to inability to fully catch his breath. States that his lungs have been affected by wbkio-fyvlcw-dtmv disease and is usually intermittent by nature. Used to receive photopheresis therapy weekly until 2 w eeks ago, when it was changed to every other week. also mentions panic attacks and pain can contribute to patient feeling short of breath. Allergies Allergy/AdvReac Type Severity Reaction Status Date / Time ampicillin [From Unasyn] Allergy Intermediate Rash and Verified 07/27/21 19:19 lip swelling sulbactam [From Unasyn] Allergy Intermediate Rash Verified 07/27/21 19:19 pegaspargase AdvReac Severe Liver Verified 07/27/21 19:19 Issues Home Medications Medication Instructions Recorded Confirmed Type prochlorperazine maleate 10 mg 10 mg PO UD PRN Nausea 10/03/19 04/08/23 History tablet midodrine 5 mg tablet 5 mg PO TIDM 11/20/19 04/08/23 History insulin lispro 100 unit/mL 0 unit subcut TIDM 07/21/20 04/08/23 History subcutaneous pen (Humalog KwikPen (U-100) Insulin) oxycodone 10 mg tablet 10 mg PO Q8 PRN Pain 07/21/20 04/08/23 History rizatriptan 10 mg disintegrating 10 mg PO UD PRN Migraine Headache 07/21/20 04/08/23 History tablet gabapentin 100 mg capsule 200 mg PO TID 07/27/21 04/08/23 History rivaroxaban 10 mg tablet (Xarelto) 10 mg PO DAILY 07/27/21 04/08/23 History acyclovir 400 mg tablet 400 mg PO BID 04/08/23 04/08/23 History baclofen 10 mg tablet 10 mg PO TID 04/08/23 04/08/23 History ifdvowmrth-mvybtlyrktzof-vmzjcwkc 1 tab PO Q4H PRN Migraine Headache 04/08/23 04/08/23 History 50 mg-325 mg-40 mg tablet cetirizine 10 mg tablet 10 mg PO DAILY 04/08/23 04/08/23 History famotidine 20 mg tablet 20 mg PO DAILY 04/08/23 04/08/23 History fentanyl 25 mcg/hr transdermal 25 patch transdermal Q72H 04/08/23 04/08/23 History patch fluticasone fur. 100 mcg-umeclid 1 inh inhalation QAM 04/08/23 04/08/23 History 62.5 mcg-vilant 25 mcg inhalat.powder (Trelegy Ellipta) insulin detemir U-100 100 unit/mL 10 unit subcut DIRECTED 04/08/23 04/08/23 History (3 mL) subcutaneous pen (Levemir FlexPen) lansoprazole 30 mg capsule,delayed 30 mg PO QAM 04/08/23 04/08/23 History release lorazepam 0.5 mg tablet 0.5 mg PO TID PRN Anxiety 04/08/23 04/08/23 History metformin 500 mg tablet,extended 500 mg PO BID 04/08/23 04/08/23 History release 24 hr montelukast 10 mg tablet 10 mg PO DAILY 04/08/23 04/08/23 History ondansetron 4 mg disintegrating 4 mg PO Q8H PRN Nausea 04/08/23 04/08/23 History tablet posaconazole 100 mg tablet,delayed 100 mg PO DAILY 04/08/23 04/08/23 History release prednisone 10 mg tablet 7.5 mg PO DIRECTED 04/08/23 04/08/23 History ruxolitinib 10 mg tablet (Jakafi) 10 mg PO DAILY 04/08/23 04/08/23 History sulfamethoxazole 800 1 tab PO BID 04/08/23 04/08/23 History mg-trimethoprim 160 mg tablet tacrolimus 0.5 mg capsule, 0.5 mg PO Q12H 04/08/23 04/08/23 History immediate-release ursodiol 300 mg capsule 300 mg PO TID 04/08/23 04/08/23 History Past Med/Surg History Medical History (Updated 04/08/23 @ 17:40 by Vickie Gloria PA-C) ALL (acute lymphoblastic leukemia) Asthma Chronic narcotic dependence Chronic respiratory failure with hypoxia DM (diabetes mellitus), type 2 DVT (deep venous thrombosis) bilateral lower extremities; right anterior forearm Graft vs host disease Leukemia ALL Neuropathy Bilateral feet and hands from chemo for testicular cancer and current diagnosis of ALL Pulmonary embolism 2011 Pulmonary HTN Testicular cancer Remission for five years prior to getting ALL Surgical History (Updated 04/08/23 @ 17:40 by Vickie Gloria PA-C) Bone marrow transplant status 2013 x2 History of stem cell transplant Status post dissection of cervical lymph nodes Removal of 17 lymph nodes; some positive per patient in 2017 Social History Smoking Status: Never smoker Second Hand Exposure: No; Do You Dip or Chew Tobacco: No; Tobacco Cessation Education Requested by Patient: No Hx Alcohol Use: No Hx Substance Use: No Preferred Language: Hungarian Communication Ability: Effective Byproducts Operator Required: No Beliefs That Will Affect Care: None Current Living Situation: Spouse Other Information That Helps Us Care for You: No Feels Safe at Home: Yes Safety Concerns: Feels Safe At This Time Assistive Devices: Oxygen - Continuous Review of Systems Review of Systems: At least ten systems reviewed and negative except as noted in the HPI. Physical Exam Physical Exam: General Appearance: WD/WN, vitals as above, NAD, sitting up in bed, pleasant, obese, anxious Head: normocephalic, atraumatic Eyes: normal inspection, PERRL, conjunctivae normal, anicteric sclerae ENT: external ear and nose normal, oropharynx normal Neck: normal visual inspection, trachea midline, no thyromegaly Respiratory: normal respiratory effort, wheezing heard at L lung base, otherwise clear to auscultation, no rales, rhonchi. No accessory muscle use Cardiovascular: tachycardic rate, regular rhythm, no murmur appreciated, normal peripheral pulses, trace BLE edema. Vessels: no JVD Chest: normal inspection of chest Abdomen/GI: normal bowel sounds, soft, RLQ TTP, no guarding, no hepatosplenomegaly Extremities/Musculoskeletal: no cyanosis or clubbing, extremities motor strength 5/5 Neurologic: PERRL, EOMI, accommodation nl, no face palsy, no dysarthria, CN's II-XI intact bilaterally and moves all extremities Psychiatric: A+Ox3, euthymic affect Skin: no rashes, normal color, warm/dry Results & Data Results & Data Vital Signs (Past 12 Hours) Vital Signs Temp Pulse Pulse Resp BP BP Pulse Ox 04/08/23 13:00 90 16 129/92 95 04/08/23 12:27 88 04/08/23 11:14 86 16 138/100 96 04/08/23 09:00 36.6 C 108 H 20 163/99 H 95 04/08/23 08:23 111 H 04/08/23 08:08 92 04/08/23 07:56 36.2 C L 117 H 20 139/106 H 97 O2 Del Method O2 Flow Rate 04/08/23 13:00 Nasal Cannula 3 04/08/23 12:27 04/08/23 11:14 Nasal Cannula 04/08/23 09:00 Room Air 04/08/23 08:23 04/08/23 08:08 Nasal Cannula 2 04/08/23 07:56 Nasal Cannula 4 Laboratory Results Short CBC 04/08/23 Range/Units 08:10 WBC 9.10 (4.8-10.8) K/ul Hgb 13.7 L (14.0-18.0) g/dl Hct 40.3 L (42.0-52.0) % Plt Count 288 (130-400) K/uL BMP 04/08/23 08:10 Sodium 139 Potassium 4.0 Chloride 101 Carbon Dioxide 29 BUN 22 Creatinine 1.33 Glucose 148 H Calcium 9.8 Liver Function 04/08/23 Range/Units 08:10 Total Bilirubin 0.5 (0.2-1.0) mg/dl AST 22 (13-39) U/L ALT 45 (7-52) U/L Alkaline Phosphatase 83 (34-104) U/L Albumin 4.4 (3.4-5.0) gm/dl Urine 04/08/23 Range/Units 11:55 Urine Color Yellow Urine Appearance Clear (Clear) Urine pH 5.5 (4.5-7.5) Ur Specific Beauty 1.043 H (1.000-1.030) Urine Protein 1+ H (Negative) Urine Glucose (UA) 2+ H (Negative) Diagnostic Findings Chest X-Ray 04/08/23 08:18 XR chest 1V portable HISTORY: 37 years-old Male dyspnea, RLQ abd pain acute shortness of breath COMPARISON: 10/08/2022 TECHNIQUE: AP view the chest FINDINGS: Right IJ dual-lumen hemodialysis catheter distal tip terminates within the inferior SVC distribution. Cardiac silhouette is normal. No pneumothorax, pleural effusion or airspace consolidation. The bones appear grossly intact. IMPRESSION: No acute process. ACT 112: Negative or not required by law. The above report was generated using voice recognition software. It may contain grammatical, syntax or spelling errors. Electronically signed by: Ortiz Valero M.D. 04/08/2023 8:48 AM Abdomen/Pelvis CT 04/08/23 10:[address] WITH IV CONTRAST CT DOSE: 1437.03 mGy.cm HISTORY: Acute right lower quadrant abdominal pain RLQ abd pain TECHNIQUE: Multiaxial CT images of the abdomen and pelvis were performed following the IV administration of 95 cc of Optiray, A dose lowering technique was utilized adhering to the principles of ALARA. COMPARISON STUDY: 07/24/2019 FINDINGS: Partially imaged catheter within the superior cavoatrial junction. Mild subsegmental bibasilar densities favor atelectasis versus scarring. No pneumatosis or pneumoperitoneum. Unremarkable spleen, pancreas and adrenal glands. There is suggested fundal adenomyomatosis of the gallbladder. Hepatic steatosis. Patency of the hepatic and portal veins. On nonspecific bilateral perinephric stranding. Linear scarring is again noted within the left retroperitoneum suggestive of prior percutaneous nephrostomy catheter placement. Scarring with subcentimeter calcifications in the inferior pole left kidney. Numerous surgical clips within the retroperitoneum are again noted. No abdominal aortic aneurysm or lymphadenopathy. Partial distention of the urinary bladder with mild wall thickening. No bowel obstruction or bowel wall thickening. Moderate fecal retention of the cecum. Normal appendix. Diastases recti with small fat filled umbilical hernia, diastases of 2 cm. No acute fracture. Demineralized appearance of the bones with heterogeneous appearance of the bone marrow. IMPRESSION: 1. No acute intra-abdominal or intrapelvic abnormality. 2. Normal appendix. 3. Nonspecific heterogeneous appearance of the bone marrow. 4. Chronic findings as above. ACT 112: Negative or not required by law. The above report was generated using voice recognition software. It may contain grammatical, syntax or spelling errors. Electronically signed by: Ortiz Valero M.D. 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 Acute chest pain or shortness of breath TECHNIQUE: Multiple CTA images of the chest were obtained after the intravenous administration of 116 ml Optiray. Coronal and sagittal MIPS were obtained from the axial data set and were submitted for review. All measurements were obtained according to NASCET criteria. A dose lowering technique was utilized adhering to the principles of ALARA. COMPARISON: CT abdomen and pelvis of same day, CT chest 07/21/2020 FINDINGS: CTA: There is adequate opacification of the pulmonary arteries to the level of the subsegmental branches without convincing evidence of acute pulmonary embolism. Unremarkable thoracic aorta. There are 2 right IJ central venous catheter is in place with distal tip terminating within the right atrium.Heart size is normal. CT CHEST: No dominant thyroid nodule is seen. No pathologically adenopathy by CT size criteria. Likely benign 3 mm solid nodule in the right upper lobe on image 202. Mild subsegmental bibasilar densities suggest atelectasis. There is no p neumothorax, pleural effusion or focal airspace consolidation. The imaged upper abdominal structures demonstrate no acute abnormality. No acute fracture identified. Mild degenerative changes throughout the spine. IMPRESSION: Unremarkable CTA of the chest. ACT 112: Negative or not required by law. The above report was generated using voice recognition software. It may contain grammatical, syntax or spelling errors. Electronically signed by: Ortiz Valero M.D. 04/08/2023 3:33 PM Supervising Physician Co-Signing Physician Notes Patient seen and examined by sc, care coordinated with Magan Gloria PA-C, please refer to her note above for full detail. 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 Developed diarrhea on night and was getting up and down to use the bathroom frequently and developed right lower quadrant pain. Was wondering if he possibly pulled a muscle. Has ongoing intermittent issues with constipation due to opioid use with last normal bowel movement occurring on Monday. Does take a laxative as needed but has not taken one since last week. Has continued to have some diarrhea since evening but no formed stool. Describes pain in right lower quadrant as sharp and worse with movement. CT abdomen/pelvis at ER obtained and unremarkable. Per discussion w/ [facility] oncology CTA chest was also obtained and negative for PE. Stool pcr ordered and pt started on empiric Rocephin as above. Currently patient is lying in bed, in no acute distress. He is alert oriented answering appropriately. Lungs are clear to auscultation. Abdomen is obese soft, tender at right lower quadrant. Patient is moving extremities and skin is warm and dry without any rash noted. We will await stool PCR, will give Senokot, MiraLAX as needed. Continue to closely monitor. MD Rolanda
[2023-04-08] MEDS ORDERED: cefTRIAXone SODIUM 2,000 MG in DEXTROSE 5% 50 ML IV ONE (14:57)
[2023-04-08] MEDS ORDERED: SENNA 8.6 MG TAB PO ONE (14:57)
[2023-04-08] MEDS ORDERED: OPTIRAY 320 125ml IV ONE (15:23)
--- NOTE | 2023-04-08 15:35 | CT Scan Report ---
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 Acute chest pain o r shortness of breath TECHNIQUE: Multiple CTA images of the chest were obtained after the intravenous administration of 116 ml Optiray. Coronal and sagittal MIPS were obtained from the axial data set and were submitted for review. All measurements were obtained according to NASCET criteria. A dose lowering technique was u tilized adhering to the principles of ALARA. COMPARISON: CT abdomen and pelvis of same day, CT chest 07/21/2020 FINDINGS: CTA: There is adequate opacification of the pulmonary arteries to the level of the subsegmental branches w ithout convincing evidence of acute pulmonary embolism. Unremarkable thoracic aorta. There are 2 righ t IJ central venous catheter is in place with distal tip terminating within the right atrium.Heart si ze is normal. CT CHEST: No dominant thyroid nodule is seen. No pathologically adenopathy by CT size criteria. Likely benign 3 mm solid nodule in the right upper lobe on image 202. Mild subsegmental bibasilar densities suggest atelectasis. There is no pneumothorax, pleural effusion or focal airspace consolidation. The imaged upper abdominal structures demonstrate no acute abnormality. No acute fracture identified . Mild degenerative changes throughout the spine. IMPRESSION: Unremarkable CTA of the chest. ACT 112: Negative or not required by law. The above report was generated using voice recognition software. It may contain grammatical, syntax o r spelling errors. Electronically signed by: Ortiz Valero M.D. 04/08/2023 3:33 PM
[2023-04-08] MEDS ORDERED: ACETAMINOPHEN 325 MG TAB PO PRN (16:37)
[2023-04-08] MEDS ORDERED: BUTALBITAL/ACETAMIN/CAFFEINE TAB PO PRN (16:37)
[2023-04-08] MEDS ORDERED: ONDANSETRON INJ 2 MG/ML 2 ML VIAL IV PRN (16:37)
[2023-04-08] MEDS ORDERED: SODIUM CHLORIDE 0.9% 1000ML 1,000 ML IV SCH (16:37)
[2023-04-08] MEDS ORDERED: LORazepam 0.5 MG TAB PO PRN (16:37)
[2023-04-08] MEDS ORDERED: POLYETHYLENE (MIRALAX) 17 GM PACK PO PRN (16:37)
[2023-04-08] MEDS ORDERED: fentaNYL 25 MCG/HR TDSY TD SCH (17:30)
[2023-04-08] MEDS ORDERED: GLUCAGON FOR INJ 1 MG VIAL SQ PRN (18:02)
[2023-04-08] MEDS ORDERED: GLUCOSE 40% GEL 15 GM TUBE PO PRN (18:02)
[2023-04-08] MEDS ORDERED: DEXTROSE 50% 50 ML SYRINGE IV PRN (18:02)
[2023-04-08] MEDS ORDERED: GLUCOSE 10 TAB/TUBE PO PRN (18:02)
[2023-04-08] MEDS ORDERED: CARBOHYDRATES FOR HYPOGLYCEMIA PO PRN (18:02)
[2023-04-08] MEDS: CHECK fentaNYL PATCH PLACEMENT SCH ×2 (18:16→23:38)
[2023-04-08] MEDS: TACROLIMUS 0.5 MG CAP PO SCH (18:19)
[2023-04-08] MEDS: MIDODRINE HCL 2.5 MG TAB PO SCH (18:20)
[2023-04-08] MEDS: INSULIN ASPART PER UNIT CHARGE SC SCH ×2 (18:37→20:28)
[2023-04-08] MEDS: oxyCODONE HCL IR 5 MG TAB (IMMEDIATE RELEASE) PO PRN (18:38)
[2023-04-08] MEDS ORDERED: ACETAMINOPHEN 1,000 MG/100 ML VIAL IV STA (20:22)
[2023-04-08] MEDS: LANTUS PER UNIT CHARGE SQ SCH (20:28)
[2023-04-08] MEDS: ursodioL 300 MG CAP PO SCH (20:29)
[2023-04-08] MEDS: ACYCLOVIR 400 MG TAB PO SCH (20:30)
[2023-04-08] MEDS: BACLOFEN 10 MG TAB PO SCH (20:30)
[2023-04-08] MEDS: GABAPENTIN 100 MG CAP PO SCH (20:30)
[2023-04-08] MEDS ORDERED: MONTELUKAST SODIUM 10 MG TABLET PO SCH (21:00)
[2023-04-08] MEDS ORDERED: SULFAMETHOXAZOLE/TRIMETHOPRIM DS 800/160MG TAB PO SCH (21:00)
[2023-04-09] MEDS ORDERED: [UNRECOGNIZED DRUG - OTHER] SCH
[2023-04-09] MEDS ORDERED: RIZATRIPTAN BENZOATE 10 MG TAB PO PRN
[2023-04-09] MEDS: oxyCODONE HCL IR 5 MG TAB (IMMEDIATE RELEASE) PO PRN ×2 (03:53→12:32)
[2023-04-09] MEDS: TACROLIMUS 0.5 MG CAP PO SCH ×2 (05:29→17:06)
[2023-04-09 06:45] LABS: Basophils # (auto) 0.01 K/uL (0-0.2); Basophils % (auto) 0.2 %; Eosinophils # (auto) 0.09 K/uL (0-0.50); Eosinophils % (auto) 1.9 %; Hematocrit (blood only) 36.4 % (42.0-52.0); Hemoglobin 12.2 g/dl (14.0-18.0); Immature Granulocytes % (auto) 2.2 %; Lymphocytes # (auto) 1.06 K/uL (1.2-3.4); Lymphocytes % (auto) 22.8 %; Mean Corpuscular Hgb Conc 33.5 g/dL (32.0-36.0); Mean Corpuscular Volume 104.3 fL (80.0-100.0); Mean Platelet Volume 9.6 fL (9.4-12.4); Monocytes % (auto) 10.8 %; Neutrophils # (auto) 2.88 K/uL (1.40-6.50); Neutrophils % (auto) 62.1 %; Nucleated RBC # (auto) 0.02 K/uL (0-0.12); Nucleated RBC % (auto) 0.4 %; Platelet Count 272 K/uL (130-400); RDW Coefficient of Variation 15.3 % (11.5-14.5); RDW Standard Deviation 58.5 fL (36.4-46.3); Red Blood Count 3.49 M/uL (4.70-6.10); White Blood Count 4.64 K/ul (4.8-10.8)
--- NOTE | 2023-04-09 06:55 | Electrocardiogram Report ---
Test Reason : Blood Pressure : / mmHG Vent. Rate : 115 BPM Atrial Rate : 115 BPM P-R Int : 130 ms QRS Dur : 108 ms QT Int : 324 ms P-R-T Axes : 074 028 040 degrees QTc Int : 448 ms Sinus tachycardia with Premature atrial complexes Incomplete right bundle branch block Borderline ECG When compared with ECG of 08-OCT-2022 14:16, Premature atrial complexes are now Present Vent. rate has increased BY 41 BPM Incomplete right bundle branch block is now Present Confirmed by Anthony Dewitt ([id number]) on 04/09/2023 6:55:07 AM Referred By: REFERRED SELF Confirmed By:Quintin Dewitt
[2023-04-09 07:11] LABS: Albumin Globulin Ratio 1.7 (0.9-2); Albumin Level 3.9 gm/dl (3.4-5.0); BUN Creatinine Ratio 15.9 (10-20); Bilirubin,Total 0.5 mg/dl (0.2-1.0); Calcium 9.2 mg/dl (8.6-10.3); Est GFR (African American) 96.4 ml/min; Est GFR (Non-African American) 83.2 ml/min; Globulin 2.3 gm/dl (2.5-4.0); Magnesium 1.6 mg/dl (1.7-2.4); Phosphorus 3.7 mg/dl (2.5-4.9); Potassium 4.2 mmol/L (3.5-5.1); Total Protein 6.2 gm/dl (6.0-8.3)
[2023-04-09] MEDS: GABAPENTIN 100 MG CAP PO SCH ×2 (08:09→14:02)
[2023-04-09] MEDS: BACLOFEN 10 MG TAB PO SCH ×2 (08:09→14:02)
[2023-04-09] MEDS: MIDODRINE HCL 2.5 MG TAB PO SCH ×3 (08:10→17:06)
[2023-04-09] MEDS: ursodioL 300 MG CAP PO SCH ×2 (08:10→14:02)
[2023-04-09] MEDS: ACYCLOVIR 400 MG TAB PO SCH (08:10)
[2023-04-09] MEDS: CHECK fentaNYL PATCH PLACEMENT SCH ×2 (08:14→17:06)
[2023-04-09] MEDS: INSULIN ASPART PER UNIT CHARGE SC SCH ×3 (08:21→17:04)
[2023-04-09] MEDS: LANTUS PER UNIT CHARGE SQ SCH (08:21)
[2023-04-09] MEDS ORDERED: cefTRIAXone SODIUM 2,000 MG in DEXTROSE 5% 50 ML IV SCH (09:00)
[2023-04-09] MEDS ORDERED: NON-FORMULARY MEDICATION (Fluticasone-Umeclidin-Vilanter [Trelegy Ellipta] 100-62.5-25 mcg INH SCH (09:00)
[2023-04-09] MEDS ORDERED: PANTOprazole 40 MG TAB PO SCH (09:00)
[2023-04-09] MEDS ORDERED: FLUTICASONE FUROATE 100MCG 14 PUFFS/INHALER INH SCH (09:00)
[2023-04-09] MEDS ORDERED: UMECLIDINIUM/VILANTEROL 62.5/25MCG 7 PUFFS/INHALER INH SCH (09:00)
[2023-04-09] MEDS ORDERED: predniSONE 2.5 MG TAB PO SCH (09:00)
[2023-04-09] MEDS ORDERED: RIVAROXABAN 10 MG TABLET PO SCH (09:00)
[2023-04-09] MEDS ORDERED: MAGNESIUM OXIDE 400 MG TAB PO SCH (09:45)
[2023-04-09] MEDS ORDERED: SENNA 8.6 MG TAB PO SCH (13:00)
[2023-04-09] MEDS ORDERED: METOPROLOL TARTRATE 25 MG TAB PO ONE (13:50)
--- NOTE | 2023-04-09 14:29 | Hospitalist Progress Note ---
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 Right lower quadrant pain Constipation Ongoing issues with constipation given chronic narcotic use, requires intermittent laxatives last taken 1 week ago Has been having diarrhea x 2 days with associated RLQ pain but CT abd/pelvis negative for acute intraabdominal or pelvic findings. 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 Edgar of heme/onc at [place] on admission Feels clinical picture is not consistent with HVHD and therefore is okay to admit here for constipation and pain mgmt If patient develops a rash or abnormal LFTs in setting of diarrhea then will need to consider transfer to [facility] Obtained CTA chest to better evaluate for GVHD but no acute findings, no PE Added Rocephin per Dr. Edgar's recommendation given possible enteritis and immunocompromised state (consider dc on Cipro), obtain stool cultures (stool pcr pending) Continue current prednisone home dose, tacrolimus, ruxolitinib, acyclovir, posaconazole - will hold bactrim while receiving rocephin Planned follow up in 2 weeks when patient returns for photophoresis treatment Dr. Edgar electrical controls engineer this weekend - [phone] (cell if needed) Chronic respiratory failure with hypoxia In setting of graft versus host disease, asthma and pulmonary hypertension Is on 2 L nasal cannula consistently at baseline but increased oxygen of 4 L due to feelings of shortness of breath-felt anxiety and pain also contributing CTA chest requested by Dr. 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 Per discussion with Dr. Edgar today, want to avoid IV narcotics as able History of testicular cancer Remote history, in remission DVT Ppx: Xarelto Code status: FULL PCP: Marilyn Dispo: Admitted to PCU Admission and Anticipated Discharge Date Admission Date: April 08, 2023 Subjective Pt seen in follow up of RLQ abd. pain Currently laying in bed, in no acute distress. Reports he did not have any stools yet since coming to the hospital. Abdominal pain seems to be improved but still there. No fevers chills chest pain or shortness of breath. Review of Systems Review of Systems: All systems reviewed & are unremarkable except as noted in Subjective Physical Exam Physical Exam: General Appearance:WD/WN, in NAD Head: normocephalic, atraumatic Eyes:normal inspection, PERRL, conjunctivae normal, anicteric sclerae ENT: external ear and nose normal, oropharynx normal Neck: normal visual inspection Respiratory:normal respiratory effort, clear to auscultation, No accessory muscle use Cardiovascular: mildly tachycardic rate, regular rhythm, no murmur appreciated Chest: normal inspection of chest Abdomen/GI: normal bowel sounds, soft, RLQ TTP, no guarding Extremities/Musculoskeletal:moves extremities Neurologic: PERRL, EOMI, accommodation nl, no face palsy, no dysarthria, moves all extremities Psychiatric:A+Ox3, euthymic affect Skin: no rashes, normal color, warm/dry Results & Data Results & Data Vital Signs (Past 12 Hours) Vital Signs Temp Pulse Pulse Resp BP BP Pulse Ox 04/09/23 14:00 103 H 143/92 H 04/09/23 11:22 36.7 C 88 18 136/77 98 04/09/23 08:10 04/09/23 06:00 79 04/09/23 07:38 36.6 C 76 16 132/68 97 04/09/23 03:00 36.3 C L 76 21 145/98 H 99 O2 Del Method O2 Flow Rate 04/09/23 14:00 04/09/23 11:22 Nasal Cannula 3 04/09/23 08:10 Nasal Cannula 04/09/23 06:00 04/09/23 07:38 Nasal Cannula 3 04/09/23 03:00 Nasal Cannula 3 Laboratory Results 04/09/23 04/09/23 04/09/23 Range/Units 14:00 11:08 07:08 WBC (4.8-10.8) K/ul RBC (4.70-6.10) M/uL Hgb (14.0-18.0) g/dl Hct (42.0-52.0) % MCV (80.0-100.0) fL MCH (25.0-34.0) pg MCHC (32.0-36.0) g/dL RDW Std Deviation (36.4-46.3) fL RDW Coeff of Tatyana (11.5-14.5) % Plt Count (130-400) K/uL MPV (9.4-12.4) fL Immature Gran % (Auto) % Neut % (Auto) % Lymph % (Auto) % [place] % (Auto) % Eos % (Auto) % Baso % (Auto) % Neut # (Auto) (1.40-6.50) K/uL Lymph # (Auto) (1.2-3.4) K/uL [place] # (Auto) (0.11-0.59) K/uL Eos # (Auto) (0-0.50) K/uL Baso # (Auto) (0-0.2) K/uL Immature Gran # (Auto) (0.01-0.20) K/uL Absolute Nucleated RBC (0-0.12) K/uL Nucleated RBC % (auto) % Sodium (136-145) mmol/L Potassium (3.5-5.1) mmol/L Chloride (98-107) mmol/L Carbon Dioxide (21-32) mmol/L Anion Gap (3-11) BUN (6-23) mg/dl Creatinine (0.6-1.4) mg/dl Est Cr Clr Drug Dosing ml/min Est GFR ( Amer) ml/min Est GFR (Non-Af Amer) ml/min BUN/Creatinine Ratio (10-20) Glucose (70-99(Fasting)) mg/dl POC Glucose 124 H 113 H (70-99) mg/dl Estimat Average Glucose Hemoglobin A1c Calcium (8.6-10.3) mg/dl Phosphorus (2.5-4.9) mg/dl Magnesium (1.7-2.4) mg/dl Total Bilirubin (0.2-1.0) mg/dl AST (13-39) U/L ALT (7-52) U/L Alkaline Phosphatase (34-104) U/L Total Protein (6.0-8.3) gm/dl Albumin (3.4-5.0) gm/dl Globulin (2.5-4.0) gm/dl Albumin/Globulin Ratio (0.9-2) Nasal Screen MRSA (PCR) (Negative) Stl C. cayetanensis PCR Pending Stool Rotavirus A PCR Pending Stl Adenov F 40/41 PCR Pending Stool Astrovirus (PCR) Pending Stool Campylobacter PCR Pending Stool Cryptosporidium PCR Pending Stl E.coli Shiga Tox PCR Pending Stl Enterotoxigenic E PCR Pending Stool EAEC (PCR) Pending Stl E. histolytica PCR Pending Stool Giardia Lamblia PCR Pending Stool Salmonella PCR Pending Stool Sapovirus (PCR) Pending Stl P. shigelloides PCR Pending Stl Shigella/EIEC PCR Pending St Y.enterocolitica PCR Pending Stool Vibrio (PCR) Pending Stl Vibrio cholerae PCR Pending Stl Norovirus GI/GII PCR Pending 04/09/23 04/09/23 04/09/23 Range/Units 06:06 06:06 06:06 WBC 4.64 L (4.8-10.8) K/ul RBC 3.49 L (4.70-6.10) M/uL Hgb 12.2 L (14.0-18.0) g/dl Hct 36.4 L (42.0-52.0) % MCV 104.3 H (80.0-100.0) fL MCH 35.0 H (25.0-34.0) pg MCHC 33.5 (32.0-36.0) g/dL RDW Std Deviation 58.5 H (36.4-46.3) fL RDW Coeff of Tatyana 15.3 H (11.5-14.5) % Plt Count 272 (130-400) K/uL MPV 9.6 (9.4-12.4) fL Immature Gran % (Auto) 2.2 % Neut % (Auto) 62.1 % Lymph % (Auto) 22.8 % [place] % (Auto) 10.8 % Eos % (Auto) 1.9 % Baso % (Auto) 0.2 % Neut # (Auto) 2.88 (1.40-6.50) K/uL Lymph # (Auto) 1.06 L (1.2-3.4) K/uL [place] # (Auto) 0.50 (0.11-0.59) K/uL Eos # (Auto) 0.09 (0-0.50) K/uL Baso # (Auto) 0.01 (0-0.2) K/uL Immature Gran # (Auto) 0.10 (0.01-0.20) K/uL Absolute Nucleated RBC 0.02 (0-0.12) K/uL Nucleated RBC % (auto) 0.4 % Sodium 139 (136-145) mmol/L Potassium 4.2 (3.5-5.1) mmol/L Chloride 103 (98-107) mmol/L Carbon Dioxide 30 (21-32) mmol/L Anion Gap 6 (3-11) BUN 18 (6-23) mg/dl Creatinine 1.13 (0.6-1.4) mg/dl Est Cr Clr Drug Dosing 134.0 ml/min Est GFR ( Amer) 96.4 ml/min Est GFR (Non-Af Amer) 83.2 ml/min BUN/Creatinine Ratio 15.9 (10-20) Glucose 107 H (70-99(Fasting)) mg/dl POC Glucose (70-99) mg/dl Estimat Average Glucose Pending Hemoglobin A1c Pending Calcium 9.2 (8.6-10.3) mg/dl Phosphorus 3.7 (2.5-4.9) mg/dl Magnesium 1.6 L (1.7-2.4) mg/dl Total Bilirubin 0.5 (0.2-1.0) mg/dl AST 25 (13-39) U/L ALT 47 (7-52) U/L Alkaline Phosphatase 74 (34-104) U/L Total Protein 6.2 (6.0-8.3) gm/dl Albumin 3.9 (3.4-5.0) gm/dl Globulin 2.3 L (2.5-4.0) gm/dl Albumin/Globulin Ratio 1.7 (0.9-2) Nasal Screen MRSA (PCR) (Negative) Stl C. cayetanensis PCR Stool Rotavirus A PCR Stl Adenov F PCR Stool Astrovirus (PCR) Stool Campylobacter PCR Stool Cryptosporidium PCR Stl E.coli Shiga Tox PCR Stl Enterotoxigenic E PCR Stool EAEC (PCR) Stl E. histolytica PCR Stool Giardia Lamblia PCR Stool Salmonella PCR Stool Sapovirus (PCR) Stl P. shigelloides PCR Stl Shigella/EIEC PCR St Y.enterocolitica PCR Stool Vibrio (PCR) Stl Vibrio cholerae PCR Stl Norovirus GI/GII PCR 04/08/23 04/08/23 04/08/23 Range/Units 20:35 20:12 18:25 WBC (4.8-10.8) K/ul RBC (4.70-6.10) M/uL Hgb (14.0-18.0) g/dl Hct (42.0-52.0) % MCV (80.0-100.0) fL MCH (25.0-34.0) pg MCHC (32.0-36.0) g/dL RDW Std Deviation (36.4-46.3) fL RDW Coeff of Tatyana (11.5-14.5) % Plt Count (130-400) K/uL MPV (9.4-12.4) fL Immature Gran % (Auto) % Neut % (Auto) % Lymph % (Auto) % [place] % (Auto) % Eos % (Auto) % Baso % (Auto) % Neut # (Auto) (1.40-6.50) K/uL Lymph # (Auto) (1.2-3.4) K/uL [place] # (Auto) (0.11-0.59) K/uL Eos # (Auto) (0-0.50) K/uL Baso # (Auto) (0-0.2) K/uL Immature Gran # (Auto) (0.01-0.20) K/uL Absolute Nucleated RBC (0-0.12) K/uL Nucleated RBC % (auto) % Sodium (136-145) mmol/L Potassium (3.5-5.1) mmol/L Chloride (98-107) mmol/L Carbon Dioxide (21-32) mmol/L Anion Gap (3-11) BUN (6-23) mg/dl Creatinine (0.6-1.4) mg/dl Est Cr Clr Drug Dosing ml/min Est GFR ( Amer) ml/min Est GFR (Non-Af Amer) ml/min BUN/Creatinine Ratio (10-20) Glucose (70-99(Fasting)) mg/dl POC Glucose 187 H 203 H (70-99) mg/dl Estimat Average Glucose Hemoglobin A1c Calcium (8.6-10.3) mg/dl Phosphorus (2.5-4.9) mg/dl Magnesium (1.7-2.4) mg/dl Total Bilirubin (0.2-1.0) mg/dl AST (13-39) U/L ALT (7-52) U/L Alkaline Phosphatase (34-104) U/L Total Protein (6.0-8.3) gm/dl Albumin (3.4-5.0) gm/dl Globulin (2.5-4.0) gm/dl Albumin/Globulin Ratio (0.9-2) Nasal Screen MRSA (PCR) Negative (Negative) Stl C. cayetanensis PCR Stool Rotavirus A PCR Stl Adenov F 40/41 PCR Stool Astrovirus (PCR) Stool Campylobacter PCR Stool Cryptosporidium PCR Stl E.coli Shiga Tox PCR Stl Enterotoxigenic E PCR Stool EAEC (PCR) Stl E. histolytica PCR Stool Giardia Lamblia PCR Stool Salmonella PCR Stool Sapovirus (PCR) Stl P. shigelloides PCR Stl Shigella/EIEC PCR St Y.enterocolitica PCR Stool Vibrio (PCR) Stl Vibrio cholerae PCR Stl Norovirus GI/GII PCR Medications Administered Current Inpatient Medications Acetaminophen (Acetaminophen 325 Mg Tab) 650 mg PO Q4H PRN PRN Reason: Mild Pain or Fever Stop: 05/08/23 16:36 Last Admin: 04/08/23 17:23 Dose: 650 mg Acetaminophen/Butalbital/Caffeine (Butalbital/Acetamin/Caffeine Tab) 1 tab PO Q 4H PRN PRN Reason: Migraine Headache Stop: 05/08/23 16:36 Acyclovir (Acyclovir 400 Mg Tab) 400 mg PO BID [facility] Stop: 05/08/23 20:59 Last Admin: 04/09/23 08:10 Dose: 400 mg Baclofen (Baclofen 10 Mg Tab) 10 mg PO TID [facility] Stop: 05/08/23 20:59 Last Admin: 04/09/23 14:02 Dose: 10 mg Dextrose (Dextrose 50% 50 Ml Syringe) 25 - 50 ml IV UD PRN; Protocol PRN Reason: Hypoglycemia Protocol Stop: 05/08/23 18:01 Fentanyl (Fentanyl 25 Mcg/Hr Tdsy) 25 mcg TD Q72H [facility] Stop: 04/22/23 17:29 Last Admin: 04/08/23 18:38 Dose: 25 mcg Fluticasone Furoate (Fluticasone Furoate 100mcg 14 Puffs/Inhaler) 1 puffs INH DAILY [facility] Stop: 05/09/23 08:59 Last Admin: 04/09/23 08:11 Dose: 1 puffs Gabapentin (Gabapentin 100 Mg Cap) 200 mg PO TID [facility] Stop: 05/08/23 20:59 Last Admin: 04/09/23 14:02 Dose: 200 mg Glucagon (Glucagon For Inj 1 Mg Vial) 1 mg SQ UD PRN; Protocol PRN Reason: Hypoglycemia Protocol Stop: 05/08/23 18:01 Glucose (Glucose 10 Tab/Tube) 4 - 8 tab PO UD PRN; Protocol PRN Reason: Hypoglycemia Treatment Stop: 05/08/23 18:01 Glucose (Glucose 40% Gel 15 Gm Tube) 15 - 30 gm PO UD PRN; Protocol PRN Reason: Hypoglycemia Protocol Stop: 05/08/23 18:01 Ceftriaxone Sodium 2,000 mg/ (Dextrose) 70 mls @ 100 mls/hr IV Q24H ALEAH; Protocol Stop: 04/17/23 09:41 Last Infusion: 04/09/23 10:21 Dose: Infused Insulin Aspart (Insulin Aspart Per Unit Charge) 0 units SC ACHS [facility] Stop: 05/08/23 18:14 Last Admin: 04/09/23 12:26 Dose: 3 units Insulin Glargine (Lantus Per Unit Charge) 5 units SQ BID [facility] Stop: 05/08/23 20:59 Last Admin: 04/09/23 08:21 Dose: 5 units Lorazepam (Lorazepam 0.5 Mg Tab) 0.5 mg PO TID PRN PRN Reason: Anxiety Stop: 05/08/23 16:36 Magnesium Oxide (Magnesium Oxide 400 Mg Tab) 400 mg PO BID [facility] Stop: 05/09/23 09:44 Last Admin: 04/09/23 10:23 Dose: 400 mg Midodrine (Midodrine Hcl 2.5 Mg Tab) 5 mg PO TIDM [facility] Stop: 05/08/23 16:59 Last Admin: 04/09/23 12:26 Dose: 5 mg Miscellaneous (Jakafi: Order Awaiting Action) 1 each N/A QS [facility] Stop: 05/09/23 00:00 Last Admin: 04/08/23 23:39 Dose: Not Given Miscellaneous (Posaconazole: Order Awaiting Action) 1 each N/A QS [facility] Stop: 05/09/23 00:00 Last Admin: 04/08/23 23:39 Dose: Not Given Miscellaneous (Check Fentanyl Patch Placement) 1 each N/A QS [facility] Stop: 05/08/23 16:36 Last Admin: 04/09/23 08:14 Dose: 1 each Miscellaneous (Fentanyl Patch Remove & Waste) 1 each N/A Q3D [facility] Stop: 05/08/23 15:28 Last Admin: 04/08/23 18:39 Dose: 1 each Miscellaneous (Carbohydrates For Hypoglycemia ) 15 - 30 gm PO UD PRN PRN Reason: Hypoglycemia Protocol Stop: 05/08/23 18:01 Montelukast Sodium (Montelukast Sodium 10 Mg Tablet) 10 mg PO HS [facility] Stop: 05/08/23 20:59 Last Admin: 04/08/23 20:30 Dose: 10 mg Ondansetron HCl (Ondansetron Inj 2 Mg/Ml 2 Ml Vial) 4 mg IV Q6H PRN PRN Reason: Nausea Stop: 05/08/23 16:36 Oxycodone HCl (Oxycodone Hcl Ir 5 Mg Tab (Immediate Release)) 10 mg PO Q8 PRN PRN Reason: Pain uncontrolled by Tylenol Stop: 04/22/23 16:36 Last Admin: 04/09/23 12:32 Dose: 10 mg Pantoprazole Sodium (Pantoprazole 40 Mg Tab) 40 mg PO QAM [facility] Stop: 05/09/23 08:59 Last Admin: 04/09/23 08:10 Dose: 40 mg Polyethylene Glycol (Polyethylene (Miralax) 17 Gm Pack) 17 gm PO DAILY PRN PRN Reason: Constipation Stop: 05/08/23 16:36 Prednisone (Prednisone 2.5 Mg Tab) 7.5 mg PO DAILY [facility] Stop: 05/09/23 08:59 Last Admin: 04/09/23 08:10 Dose: 7.5 mg Rivaroxaban (Rivaroxaban 10 Mg Tablet) 10 mg PO DAILY [facility] Stop: 05/09/23 08:59 Last Admin: 04/09/23 08:10 Dose: 10 mg Rizatriptan Benzoate (Rizatriptan Benzoate 10 Mg Tab) 10 mg PO PRN PRN PRN Reason: migraine headache Stop: 05/08/23 19:24 Sennosides (Senna 8.6 Mg Tab) 8.6 mg PO QAM [facility] Stop: 05/09/23 12:59 Last Admin: 04/09/23 14:01 Dose: 8.6 mg Tacrolimus (Tacrolimus 0.5 Mg Cap) 0.5 mg PO Q12H [facility] Stop: 05/08/23 16:59 Last Admin: 04/09/23 05:29 Dose: 0.5 mg Trimethoprim/Sulfamethoxazole (Sulfamethoxazole/Trimethoprim Ds 800/160mg Tab) 1 tab PO BID [facility] Stop: 05/08/23 20:59 Umeclidinium/Vilanterol (Umeclidinium/Vilanterol 62.5/25mcg 7 Puffs/Inhaler) 1 puffs INH DAILY [facility] Stop: 05/09/23 08:59 Last Admin: 04/09/23 08:11 Dose: 1 puffs Ursodiol (Ursodiol 300 Mg Cap) 300 mg PO TID [facility] Stop: 05/08/23 20:59 Last Admin: 04/09/23 14:02 Dose: 300 mg
[2023-04-09] MEDS ORDERED: POLYETHYLENE (MIRALAX) 17 GM PACK PO ONE (14:30)
[2023-04-09 15:51] LABS: Adenovirus F 40/41 PCR Not Detected (NotDetected); Astrovirus PCR Not Detected (NotDetected); Campylobacter PCR Not Detected (NotDetected); Cryptosporidium PCR Not Detected (NotDetected); Cyclospora cayetanensis PCR Not Detected (NotDetected); Entamoeba histolytica PCR Not Detected (NotDetected); Enteroaggregative E.coli(EAEC) Not Detected (NotDetected); Enteropathogenic E.coli (EPEC) Not Detected (NotDetected); Enterotoxigenic E.coli (ETEC) Not Detected (NotDetected); Giardia lamblia PCR Not Detected (NotDetected); Norovirus GI/GII PCR Not Detected (NotDetected); Plesiomonas shigelloides PCR Not Detected (NotDetected); Rotavirus A PCR Not Detected (NotDetected); Salmonella PCR Not Detected (NotDetected); Sapovirus PCR Not Detected (NotDetected); Shiga-like Toxin E.coli (STEC) Not Detected (NotDetected); Shigella/Enteroinvasive E.coli Not Detected (NotDetected); Vibrio cholerae PCR Not Detected (NotDetected); Vibrio species PCR Not Detected (NotDetected); Yersinia enterocolitica PCR Not Detected (NotDetected)
--- NOTE | 2023-04-09 17:36 | Discharge Summary ---
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 Patient stayed overnight in [place] night before his photopheresis treatment and slept poorly due to being in a different bed. Developed diarrhea that night and was getting up and down to use the bathroom frequently and developed right lower quadrant pain. Was wondering if he possibly pulled a muscle. Has ongoing intermittent issues with constipation due to opioid use with last normal bowel movement occurring on Monday. Does take a laxative as needed but has not taken one since last week. Has continued to have some diarrhea since evening but no formed stool. Describes pain in right lower quadrant as sharp and worse with movement. Is on 2 L nasal cannula oxygen at baseline but has been requiring 4 L since this morning due to inability to fully catch his breath. States that his lungs have been affected by [id number] disease and is usually intermittent by nature. Used to receive photopheresis therapy weekly until 2 weeks ago, when it was changed to every other week. also mentions panic attacks and pain can contribute to patient feeling short of breath. Admission Exam Per Admitting Provider General Appearance:WD/WN, vitals as above, NAD, sitting up in bed, pleasant, obese, anxious Head: normocephalic, atraumatic Eyes:normal inspection, PERRL, conjunctivae normal, anicteric sclerae ENT: external ear and nose normal, oropharynx normal Neck: normal visual inspection, trachea midline, no thyromegaly Respiratory:normal respiratory effort, wheezing heard at L lung base, otherwise clear to auscultation, no rales, rhonchi. No accessory muscle use Cardiovascular: tachycardic rate, regular rhythm, no murmur appreciated, normal peripheral pulses, trace BLE edema. Vessels: no JVD Chest: normal inspection of chest Abdomen/GI: normal bowel sounds, soft, RLQ TTP, no guarding, no hepatosplenomegaly Extremities/Musculoskeletal: no cyanosis or clubbing, extremities motor strength 5/5 Neurologic: PERRL, EOMI, accommodation nl, no face palsy, no dysarthria, CN's II-XI intact bilaterally and moves all extremities Psychiatric:A+Ox3, euthymic affect Skin: no rashes, normal color, warm/dry Principal Diagnosis Constipation Abd. pain secondary to above Immunocompromised status Discharge Exam General Appearance:WD/WN, in NAD Head: normocephalic, atraumatic Eyes:normal inspection, PERRL, conjunctivae normal, anicteric sclerae ENT: external ear and nose normal, oropharynx normal Neck: normal visual inspection Respiratory:normal respiratory effort, clear to auscultation, No accessory muscle use Cardiovascular: mildly tachycardic rate, regular rhythm, no murmur appreciated Chest: normal inspection of chest Abdomen/GI: normal bowel sounds, soft, RLQ TTP, no guarding Extremities/Musculoskeletal:moves extremities Neurologic: PERRL, EOMI, accommodation nl, no face palsy, no dysarthria, moves all extremities Psychiatric:A+Ox3, euthymic affect Skin: no rashes, normal color, warm/dry Discharge Data Allergies Allergy/AdvReac Type Severity Reaction Status Date / Time ampicillin [From Unasyn] Allergy Intermediate Rash and Verified 07/27/21 19:19 lip swelling sulbactam [From Unasyn] Allergy Intermediate Rash Verified 07/27/21 19:19 pegaspargase AdvReac Severe Liver Verified 07/27/21 19:19 Issues Consultations 04/08/23 13:51 ED Decision to Admit Stat Ordered Studies 04/08/23 10:24 CT abd pelvis IV con only Stat FINDINGS: Partially imaged catheter within the superior cavoatrial junction. Mild subsegmental bibasilar densities favor atelectasis versus scarring. No pneumatosis or pneumoperitoneum. Unremarkable spleen, pancreas and adrenal glands. There is suggested fundal adenomyomatosis of the gallbladder. Hepatic steatosis. Patency of the hepatic and portal veins. On nonspecific bilateral perinephric stranding. Linear scarring is again noted within the left retroperitoneum suggestive of prior percutaneous nephrostomy catheter placement. Scarring with subcentimeter calcifications in the inferior pole left kidney. Numerous surgical clips within the retroperitoneum are again noted. No abdominal aortic aneurysm or lymphadenopathy. Partial distention of the urinary bladder with mild wall thickening. No bowel obstruction or bowel wall thickening. Moderate fecal retention of the cecum. Normal appendix. Diastases recti with small fat filled umbilical hernia, diastases of 2 cm. No acute fracture. Demineralized appearance of the bones with heterogeneous appearance of the bone marrow. IMPRESSION: 1. No acute intra-abdominal or intrapelvic abnormality. 2. Normal appendix. 3. Nonspecific heterogeneous appearance of the bone marrow. 4. Chronic findings as above. 04/08/23 14:56 CT angio chest PE protocol Routine FINDINGS: CTA: There is adequate opacification of the pulmonary arteries to the level of the subsegmental branches without convincing evidence of acute pulmonary embolism. Unremarkable thoracic aorta. There are 2 right IJ central venous catheter is in place with distal tip terminating within the right atrium.Heart size is normal. CT CHEST: No dominant thyroid nodule is seen. No pathologically adenopathy by CT size criteria. Likely benign 3 mm solid nodule in the right upper lobe on image 202. Mild subsegmental bibasilar densities suggest atelectasis. There is no pneumothorax, pleural effusion or focal airspace consolidation. The imaged upper abdominal structures demonstrate no acute abnormality. No acu te fracture identified. Mild degenerative changes throughout the spine. IMPRESSION: Unremarkable CTA of the chest. 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 Right lower quadrant pain Constipation Ongoing issues with constipation given chronic narcotic use, requires intermittent laxatives last taken 1 week ago Has been having diarrhea x 2 days with associated RLQ pain but CT abd/pelvis negative for acute intraabdominal or pelvic findings. Moderate fecal retention in cecum Gave Senokot S x 1 o admission Stool pcr negative Okay to continue home pain regimen - avoid IV narcotics as able IV fluids Abd pain resolved after having a BM. Stool pcr negative but given immunocompromised status will discharge on ciprofloxacin as was discussed w/ oncology. Pt wishes to be discharged as he has dental appointment tmrw that he does not want to miss. He feels well and much improved and wants to be discharged. 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 Edgar of heme/onc at [place] on admission Feels clinical picture is not consistent with HVHD and therefore is okay to admit here for constipation and pain mgmt If patient develops a rash or abnormal LFTs in setting of diarrhea then will need to consider transfer to [facility] Obtained CTA chest to better evaluate for GVHD but no acute findings, no PE Added Rocephin per Dr. Edgar's recommendation given possible enteritis and immunocompromised state (consider dc on Cipro) Continue current prednisone home dose, tacrolimus, ruxolitinib, acyclovir, posaconazole - will hold bactrim while receiving rocephin Planned follow up in 2 weeks when patient returns for photophoresis treatment Dr. Edgar bond clerk this weekend - [phone] (cell if needed) Chronic respiratory failure with hypoxia In setting of graft versus host disease, asthma and pulmonary hypertension Is on 2 L nasal cannula consistently at baseline but increased oxygen of 4 L due to feelings of shortness of breath-felt anxiety and pain also contributing CTA chest requested by Dr. 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 Per discussion with Dr. Edgar, want to avoid IV narcotics as able History of testicular cancer Remote history, in remission Total Time Total Time Spent Total Time Spent (In Minutes): 40 Discharge Plan Discharge Items Patient Disposition: Home - Self-Care Reason For Visit: RLQ PAIN, CONSTIPATION, H/O GVHD Discharge Diagnosis: Constipation Abd. pain secondary to above Immunocompromised status Condition on Discharge: Good Activity: Per Instructions section Non-emergency contact: Primary Care Provider and Oncologist Call non-emergency contact if: you have any medication questions and your symptoms worsen Follow-up/Referrals: Ginger Francois PA-C [Primary Care Provider] - Diet: Carb Consistent or DM2 Addtl Attending Provider Instructions: Follow-up with your primary care doctor and oncologist. Take ciprofloxacin, instead of Bactrim for next 4 days, then resume Bactrim. In addition, take magnesium supplement for next several days. Discuss further with your primary care doctor and /or oncologist if you need to continue this supplement longer. Pending Studies at Discharge: No Stand-Alone Forms: My [employer], Smoking Cessation Medications and DC Order Prescriptions: New ciprofloxacin HCl 500 mg tablet 500 mg PO BID 4 Days Qty: 8 0RF magnesium oxide 420 mg tablet 420 mg PO DAILY Qty: 7 0RF Continued prochlorperazine maleate 10 mg tablet 10 mg PO UD PRN (Reason: Nausea) rizatriptan 10 mg tablet,disintegrating 10 mg PO UD PRN (Reason: Migraine Headache) oxycodone 10 mg tablet 10 mg PO Q8 PRN (Reason: Pain) insulin lispro [Humalog KwikPen Insulin] 100 unit/mL insulin pen 0 unit SUBCUT TIDM Rx Instructions: sliding scale midodrine 5 mg Tablet 5 mg PO TIDM Xarelto 10 mg tablet 10 mg PO DAILY gabapentin 100 mg capsule 200 mg PO TID Rx Instructions: per , he takes 2 caps three times daily fentanyl 25 mcg/hr patch 72 hour 25 patch transdermal Q72H Rx Instructions: 72 hours prednisone 10 mg tablet 7.5 mg PO DIRECTED cetirizine 10 mg tablet 10 mg PO DAILY acyclovir 400 mg tablet 400 mg PO BID sulfamethoxazole-trimethoprim 800-160 mg tablet 1 tab PO BID [id number] 50-325-40 mg tablet 1 tab PO Q4H PRN (Reason: Migraine Headache) famotidine 20 mg tablet 20 mg PO DAILY lorazepam 0.5 mg tablet 0.5 mg PO TID PRN (Reason: Anxiety) Rx Instructions: per he usually takes one a day in the morning baclofen 10 mg tablet 10 mg PO TID lansoprazole 30 mg capsule,delayed release(DR/EC) 30 mg PO QAM ursodiol 300 mg capsule 300 mg PO TID montelukast 10 mg tablet 10 mg PO DAILY ondansetron 4 mg tablet,disintegrating 4 mg PO Q8H PRN (Reason: Nausea) metformin 500 mg tablet extended release 24 hr 500 mg PO BID tacrolimus 0.5 mg capsule 0.5 mg PO Q12H Levemir FlexPen 100 unit/mL (3 mL) insulin pen 10 unit SUBCUT DIRECTED Rx Instructions: 10 units am and pm Jakafi 10 mg tablet 10 mg PO DAILY posaconazole 100 mg tablet,delayed release (DR/EC) 100 mg PO DAILY Trelegy Ellipta 100-62.5-25 mcg blister with device 1 inh INHALATION QAM Discharge Orders: Discharge Order (Routine); Ordered 04/09/23 Ordered By: Rolando Orantes Admission Data Admit Date/Time: 04/08/23 14:54 Attending Provider: Rolando Orantes Admit Provider: Rolando Orantes Primary Care Provider: Ginger Francois Other Providers: Rolando Orantes
[2023-04-10 07:55] LABS: Estimated Average Glucose 128 mg/dl; Hemoglobin A1C 6.1 % (4.5-5.6)
== END 2023-04-09 18:36 | disposition home or self-care (01) | DRG 392 ==
LOC: ED 07:54 → 2S 14:54